=== PATIENT | female | born 1960 | race Caucasian/White ===

== ENCOUNTER 2024-05-28 09:35 | Outpatient (CLI) | payer MEDICARE, OTHER, SELFPAY ==
--- NOTE | 2024-05-28 09:46 | MR_ITS ---
FINAL REPORT TECHNIQUE: Multiplanar MR without contrast CLINICAL HISTORY: ADOLESCENT IDIOPATHIC SCOLIOSIS COMPARISON: None FINDINGS: There is severe dextroscoliosis of the lumbar spine. There is a mild compression fracture of T12 having a chronic appearance. Lateral subluxation is noted of T12 on L1, L2 on L3, and L3 on L4. L1-2: Minimal annular disc bulge without canal stenosis. L2-3: Moderate annular disc bulge. Mild central canal stenosis. Moderate bilateral facet arthropathy. Moderate bilateral neural foraminal narrowing. L3-4: Moderate annular disc bulge. Moderate to severe central canal stenosis and neural foraminal narrowing. L4-5: Minimal annular disc bulge. Mild facet arthropathy. No central canal stenosis. L5-S1: Minimal annular disc bulge. Moderate right facet arthropathy. Mild right neural foraminal narrowing. No central canal stenosis. IMPRESSION: Advanced scoliosis with multilevel lateral subluxation. Degenerative canal stenosis most pronounced at L2-3 and L3-4. Chronic T12 compression fracture. Reviewed, Interpreted and Dictated by Sonu Aparicio MD Transcribed by Zuly Villatoro Authenticated and [facility]
== END 2024-05-28 23:59 | disposition home or self-care (01) ==
LOC: RAD 09:40
PROVIDERS: Visit Provider Physician Assistant Medical
DX: M47.27 Other spondylosis with radiculopathy, lumbosacral region (principal); M41.129 Adolescent idiopathic scoliosis, site unspecified
CPT/HCPCS: 72148

== ENCOUNTER 2024-06-26 09:48 | Outpatient (POV) | payer MEDICARE, SELFPAY ==
--- NOTE | 2024-06-26 10:34 | EXP.PAIN.OV ---
HPI Data of Consult Patient: new to practice Consult date: 06/26/24 Requesting Physician: Rosie Pond APRN Primary Care Provider: Referral Provider, MD Consult Narrative Reason for consult: Low back pain, bilateral leg pain History of present illness: Ms. Ludwig is a 64 year old female who presents today as a new patient. She is a referral from Edith Rai. Today she rates her pain a 6 out of 10. Patient states her pain is all in her low back that does radiate down into her bilateral lower extremities. She states that it is sharp and is worse with certain movements or walking. She states that there is just a lot of pressure and pain. She states the pain is affecting her ability perform activities of daily living such as cooking and cleaning. Patient did just complete recent physical therapy in April and noticed no additional improvement. Patient has tried Tylenol, diclofenac, heat and ice and topicals such as Voltaren with minimal improvement. Patient denies any prior back surgery or injection history. Patient does state that she knows she does have scoliosis that is probably also affecting her overall pain. Patient does state that she did have a right hip replacement in November 2023. She states that it was after this procedure that the pain really increased and started to become very aggravating. Patient does not have any current scheduled medications on file. Her Scotty has been reviewed and is appropriate. CC: Rosie Pond APRN [facility] Disclaimer: The information contained in this section may have been updated after the patient was seen, as this information can be updated by other users. Social History Smoking Status: Unknown if ever smoked alcohol intake: never current occupational status: other Travel in the last 8 weeks: None Review of Systems Review of Systems Review of systems:: pertinent systems reviewed and negative unless documented below Review of systems (narrative): Review of Systems: General: No recent weight changes, no fever, no sleep disturbances Respiratory: No cough, no shortness of air, no recurring pulmonary infections Cardiovascular/peripheral vascular: No chest pain, no palpitations, no edema, no shortness of breath Gastrointestinal: No new onset incontinence, normal bowel movements reported Genitourinary: No new onset incontinence Musculoskeletal: Low back pain, bilateral leg pain Psychiatric: [Normal mood/affect] Neurological: [Denies weakness in extremities], [denies balance issues] Meds Home Medications and Allergies New Prescriptions to Start Prescriptions: Objective Narrative: Physical Exam: General: Alert and oriented x3, no acute distress, pleasant and cooperative Lungs: Respirations even and unlabored, symmetrical chest expansion Eyes: PERRL Musculoskeletal: Flexion and extension of lumbar [spine] somewhat guarded secondary to pain, positive leg raise Neurological: Speech clear, no gross sensory deficit Additional findings Additional findings: FINDINGS: There is severe dextroscoliosis of the lumbar spine. There is a mild compression fracture of T12 having a chronic appearance. Lateral subluxation is noted of T12 on L1, L2 on L3, and L3 on L4. L1-2: Minimal annular disc bulge without canal stenosis. L2-3: Moderate annular disc bulge. Mild central canal stenosis. Moderate bilateral facet arthropathy. Moderate bilateral neural foraminal narrowing. L3-4: Moderate annular disc bulge. Moderate to severe central canal stenosis and neural foraminal narrowing. L4-5: Minimal annular disc bulge. Mild facet arthropathy. No central canal stenosis. L5-S1: Minimal annular disc bulge. Moderate right facet arthropathy. Mild right neural foraminal narrowing. No central canal stenosis. IMPRESSION: Advanced scoliosis with multilevel lateral subluxation. Degenerative canal stenosis most pronounced at L2-3 and L3-4. Chronic T12 compression fracture. Reviewed, Interpreted and Dictated by Sonu Aparicio MD Transcribed by Zuly Villatoro Authenticated and [facility] Assessment and Plan *Assessment and plan (1) Degenerative disc disease: Status: Acute Category: Medical (2) Lumbar radiculopathy: Status: Acute Category: Medical Code(s): M54.16 - Radiculopathy, lumbar region (3) Lumbar spinal stenosis: Status: Acute Category: Medical Code(s): M48.061 - Spinal stenosis, lumbar region without neurogenic claudication Plan Patient is experiencing worsening pain in her low back with numbness and tingling into her lower extremities. Patient did have limited range of motion of her lumbar spine with a positive leg raise. I did discuss with patient that I do believe they would benefit from a lumbar epidural steroid injection. Risk and benefits were discussed with patient and the patient would like to proceed forward with this plan of care. Patient is not on any blood thinners. Patient has tried and failed conservative therapy including continued at home stretching exercise for longer than 12 weeks that was physician guided. Patient had recent physical therapy in April that did not improve any of her symptoms. This pain has been going on for longer than 6 months.We will schedule the patient for an LESI L3-L4 under fluoroscopy. Patient has been instructed to contact the clinic with any concerns before the next appointment. Dr. Delgado has reviewed this note and agrees with this plan of care. This note was dictated using voice recognition software and make contain errors or omissions. All injections are used with Lidocaine, Bupivacaine and Depo Medrol. Occasionally urine drug screen is needed to verify patient's compliance with our office pain contract. This is ordered based off specific treatments related to chronic pain with the potential to abuse certain medications.
[2024-06-26 10:35] VITALS: BP 115/64; PULSE 75; RESP 18; O2SAT 93; BMI 27.0
== END 2024-06-26 23:59 | disposition home or self-care (01) ==
LOC: SC.PAIN 09:52
PROVIDERS: Visit Provider Nurse Practitioner Family
DX: M48.061 Spinal stenosis, lumbar region without neurogenic claudication (principal); M51.16 Intervertebral disc disorders with radiculopathy, lumbar region; Z73.89 Other problems related to life management difficulty; Z96.641 Presence of right artificial hip joint
CPT/HCPCS: 99202; G0463

== ENCOUNTER 2024-08-05 08:56 | Day surgery (SDC) | payer MEDICARE, MEDICAID, SELFPAY ==
[2024-08-05 09:13] VITALS: BP 125/70; PULSE 64; RESP 16; TEMP 36.8; O2SAT 97; BMI 29.2
[2024-08-05] MEDS: DEXAMETHASONE 10MG/ML 1ML VIAL 10 MG (09:48)
[2024-08-05 09:49] VITALS: BP 128/87; PULSE 74; RESP 18; O2SAT 98
[2024-08-05 09:50] VITALS: BP 128/87; PULSE 83; RESP 18; O2SAT 98
--- NOTE | 2024-08-05 09:52 | P.PCN_ITS ---
Procedure Date: 08/05/24 Time: 09:20 Anesthesiologist:: Karan Rodrigues CRNA Complications:: None Pre-procedure Diagnosis:: Degenerative disc lumbar spine multilevels. Lumbar radiculopathy. Lumbar spondylosis. Multilevel lumbar facet arthropathy. Post-procedure Diagnosis:: Same. Indications for Procedure:: Patient is a very pleasant 64-year-old female who comes our clinic today for lumbar epidural steroid injection at the L3-4 level. Patient describes low lumbar back pain as constant, dull, aching. Patient also reports bilateral hip and leg radicular symptoms. Patient rates her pain 7/10. Procedure Details:: Procedure: Lumbar epidural steroid injection under fluoroscopy Informed consent was obtained and the risks and benefits of the procedure were explained to the patient. The patient was taken to the procedure room and nonin vasive monitors placed, including noninvasive blood pressure cuff and pulse oximeter. The back was viewed using C-arm Fluoroscopy and prepped using Chloraprep as a cleansing solution and the L4-L5 interspace was palpated. Skin and subcutaneous tissues were anesthetized using lidocaine 1.5% and a 25-gauge needle. After this, an 18-gauge Touhy epidural needle was placed into the L4-L5 interspace and advanced using fluoroscopic guidance and loss of resistance to air until the epidural space was encountered. After confirmation of needle placement in the epidural space, with dye, a solution containing normal saline, 3 mL and Depo-Medrol 80 mg were incrementally injected into the lumbar epidural space. The patient tolerated the procedure well with no complications. After looking at the lumbar spine under fluoroscopy. The L3-4 level was not accessible. Plan and Disposition:: Patient was discharged without incident.
[2024-08-05 09:55] VITALS: BP 139/81; PULSE 71; RESP 16; O2SAT 99
== END 2024-08-05 09:55 | disposition home or self-care (01) ==
PROVIDERS: Visit Provider Nurse Anesthetist, Certified Registered
DX: M51.16 Intervertebral disc disorders with radiculopathy, lumbar region (principal); M47.26 Other spondylosis with radiculopathy, lumbar region
CPT/HCPCS: 62323; J1100

== ENCOUNTER 2024-08-26 13:07 | Outpatient (POV) | payer MEDICARE, MEDICAID, SELFPAY ==
[2024-08-26 13:45] VITALS: BP 111/69; PULSE 76; RESP 14; O2SAT 95; BMI 28.3
--- NOTE | 2024-08-26 14:34 | EXP.PAIN.SOA ---
[facility] Disclaimer: The information contained in this section may have been updated after the patient was seen, as this information can be updated by other users. Medical History HLD (hyperlipidemia) Dwarfism Scoliosis Surgical History History of right hip replacement Family History Other Unknown family medical history Social History Smoking Status: Unknown if ever smoked alcohol intake: never current occupational status: other Travel in the last 8 weeks?: None PM Subjective & Objective Subjective Subjective:: Patient is a pleasant 64-year-old female who presents today for follow-up of her lumbar epidural steroid injection L4-L5 on 08/05/2024. Today she rates her pain a 5 out of 10. She denies any new falls or injuries. Patient does state that she really feels like she did not notice any additional improvement with these injections. Patient states she is still having the same pain that radiates from her low back down into her bilateral legs with a lot of tight heavy sensations into her calves and ankles. Patient states the pain does interfere with her ability to perform activities of daily living such as cooking and cleaning. Patient is interested in any options we may be able to provide. Her Scotty has been reviewed and is appropriate. Review of Systems: General: No recent weight changes, no fever, no sleep disturbances Respiratory: No cough, no shortness of air, no recurring pulmonary infections Cardiovascular/peripheral vascular: No chest pain, no palpitations, no edema, no shortness of breath Gastrointestinal: No new onset incontinence, normal bowel movements reported Genitourinary: No new onset incontinence Musculoskeletal: Low back pain, bilateral leg pain Psychiatric: [Normal mood/affect] Neurological: [Denies weakness in extremities], [denies balance issues] Pain at rest (0-10 scale): 5 Objective Objective:: Physical Exam: General: Alert and oriented x3, no acute distress, pleasant and cooperative Lungs: Respirations even and unlabored, symmetrical chest expansion Eyes: PERRL Musculoskeletal: Flexion and extension of lumbar [spine] somewhat guarded secondary to pain, [antalgic gait noted] Neurological: Speech clear, no gross sensory deficit Has patient had previous pain injection?: Yes Percent improvement in pain since last injection: Minimal Conservative treatment options previously tried: Home exercise plan Length of treatment: Longer than 12 weeks Meds Home Medications and Allergies Home Medications ?Medication ?Instructions ?Recorded ?Confirmed ?Type atorvastatin 80 mg tablet 80 mg PO DAILY Cholesterol 06/26/24 08/26/24 History bupropion HCl 150 mg 24 hr tablet, 150 mg PO DAILY MOOD 06/26/24 08/26/24 History extended release diclofenac sodium 75 mg 75 mg PO DIRECTED Pain 06/26/24 08/26/24 History tablet,delayed release ropinirole 0.25 mg tablet 0.25 mg PO DAILY RESTLESS LEGS 06/26/24 08/26/24 History New Prescriptions to Start Prescriptions: Allergies Allergy/AdvReac Type Severity Reaction Status Date / Time gabapentin AdvReac Nausea Verified 06/26/24 11:47 hydrocodone AdvReac Headache Verified 06/26/24 11:47 Assessment and Plan *Assessment and plan (1) Lumbar radiculopathy: Status: Acute Category: Medical Code(s): M54.16 - Radiculopathy, lumbar region (2) Degenerative disc disease: Status: Acute Category: Medical Plan I did discuss with the patient that due to her continued pain throughout her legs with a lot of tight pressure sensations that it may be beneficial for her to have an EMG done to rule out possible nerve impingement. Patient has had updated lumbar imaging. I did also discuss with the patient that I do believe it may be beneficial to try pregabalin 25 mg at bedtime. Patient would like to proceed forward with this option. I will send in a 2-week dose of this medication and have the patient follow-up in 2 weeks with our office we will also in the meantime send a referral to Dr. Reid for the EMG test for her bilateral lower extremities. Patient has been instructed to contact the clinic with any concerns before the next appointment. Dr. Delgado has reviewed this note and agrees with this plan of care. This note was dictated using voice recognition software and make contain errors or omissions. All injections are used with Lidocaine, Bupivacaine and dexamethasone. Occasionally urine drug screen is needed to verify patient's compliance with our office pain contract. This is ordered based off specific treatments related to chronic pain with the potential to abuse certain medications.
== END 2024-08-26 23:59 | disposition home or self-care (01) ==
PROVIDERS: PCP Nurse Practitioner Family; Visit Provider Nurse Practitioner Family
DX: M54.16 Radiculopathy, lumbar region (principal)
CPT/HCPCS: 99212; G0463

== ENCOUNTER 2024-09-10 10:01 | Outpatient (POV) | payer MEDICARE, MEDICAID, SELFPAY ==
--- OUTSIDE RECORDS SUMMARY | 2024-09-10 10:09 | XMS_ITS | Data Portability ---
Author Organization [facility] ADMIN Address [address] [place] [address] Care Team Providers Care Nursing Instructor Name Role Phone JOSSELINE CONTRERAS Primary Care Provider Assessment No assessment recorded. Plan of Treatment Reminders Order Date Submit Date Provider Last Modified By Organization Details Last Modified Time Details Appointments None recorded. Lab None recorded. Referral None recorded. Procedures None recorded. Surgeries None recorded. Imaging CT, wrist, w/o contrast 2022 023 [email or web address] Minerva (Centralized Scheduling)[address] , [place], [address], 4 15:37:52 XR, wrist 2022 023 [email or web address] [facility], [address] [place] [address] , [place], [address], 3 07:57:33 XR, finger(s) 2021 022 [email or web address] [facility], [address] [place] [address] , [place], [address], 2 09:10:01 Medication Orders Medrol (Ed) 4 mg tablets in a dose pack [address] [facility] [address] [facility], [address] [place], [address], 3 13:14:37 tramadol 50 mg tablet [address] [facility], [address] [place], [address], 3 13:15:21 Medrol (Ed) 4 mg tablets in a dose pack [address] [facility], [address] [place], [address], 3 13:14:37 Patient TargetsNo targets recorded. Patient InstructionsNo instructions recorded. Reason for Referral None Reported. Results Created Date Observation Date Name Description Value Unit Range Abnormal Flag Note LastModifiedBy Organization Detail LastModifiedTime 03/09/20 22 XR, finge r(s) No observ ation record ed. [email or web address] Medina [address] [place], [address], 03/09/2022 08:32:04 11/29/19 23 XR, wrist No observ ation record ed. RONAK Medina [address] [place], [address], 11/28/2022 08:59:46 02/03/20 23 02/02/2023 - CT upper ext w/o cont RT [facility] Name: BJ HINTON [facility] Phys: [place] [address] : 1959 Age: 62 Sex: F Acct: [id number] Loc: G.CT PHONE #: [phone] Exam Date: 2022 Status : REG CLI FAX #: Rad# [id number] Unit# [id number] Admit Date: 2022 EXAMS: CPT CODE: [id number] [place] UPPER EXT W/[place] [address] CLINIC AL INFORM ATION: Scapho id fractu re. Wrist pain COMPAR OLGA: No compar olga availa ble. TECHNI QUE: Multis lice axial unenha nced imagin g of the right wrist was perfor med as well as 2-D recons tructi ons in the addison l and sagitt al planes . Dose reduct ion achiev ed by adjust ing mA and/or kV based on patien t size. FINDIN GS: There is advanc ed degene ration of the radial carpal articu lation with inferi or rotary sublux ation of the proxim al scapho id. The rotato ry sublux ation result s in disrup tion/s ubluxa tion of the scapho id trapez ium and scapho id trapez oid articu lation s. No eviden ce of scapho id fractu re There is disrup tion of the scapho lunate ligame nt as eviden ce by the dissoc iation of the scapho lunate articu lation . There is anteri or disloc ation of the lunate and to a lesser degree the trique trum. There is pseudo articu lation of the capita te with the partia l extent of the distal radius . Subcho ndral cystic degene ration of the radius and capita te is noted. The carpal metaca rpal articu lation s are fairly well. IMPRES YANELIS: 1. Severe degene ration radial carpal articu lation s with near comple te anteri or disloc ation of the lunate and anteri or sublux ation of the scapho id produc ing pseudo articu lation of the radius with the capita te, and disrup tion of the scapho id trapez ium/tr apezoi d articu lation s respec tively . Commun icatio n: Per this lexie n report . This report is genera dana using voice recogn ition comput er softwa re. Inadve rtent errors may have occurr ed while dictat ing report . Common sense approa ch is apprec iated and do not hesita te to call for clarif icatio n when necess carmen. PAGE 1 Signed Report (JODY NUED) [facility] Name: BJ HINTON [facility] Phys: Charlie [place] [address] : 1959 Age: 62 Sex: F Acct: [id number] Loc: SulemanCT PHONE #: Exam Date: 2022 Status : REG CLI FAX #: Rad# [id number] Unit# [id number] Admit Date: 2022 EXAMS: CPT CODE: [id number]T W/[place] [address] Electr onical ly Signed by Wes Parker on 2022 at 1420 Report ed and signed by: CARRIE Parker M.D. CC: Josseline Contreras ; Angel Guerra DO Dictat ed Date/T kriss: 2022 (142) Techno logist : ROMEO YOUSSEF Transc ribed Date/T kriss: 2022 (1420) Transc riptio nist: DR.HAR JONES Ledbetter onic Signat ure Date/T kriss: 2022 (142) Printe d Date/T kriss: 2022 (142) BATCH NO: N/A PAGE 2 Signed Report CC'ed Logic: Orderi ng Provid er: CHARLIE SAM Attend ing Provid er: CHARLIE SAM Referr ing Provid er: CHARLIE SAM Consul ting Provid er: DANITA MANJARREZ [email or web address] [address] [place], [address], 02/05/2023 07:40:50 Result Notes None recorded. Problems Name Problem SNOMED Code Status Onset Date Resolution Date Notes Provider Name and Address Organization Details Recorded Time Sensorineur al hearing loss 13404360 Active 2021 Comfort Melissa null, [place] - [facility] - [place] & [place] 2 15:01:54 Restless legs 68335562 Active 2021 Comfort Melissa [place] [facility] [place] [facility] [place] 2 15:01:54 Seasonal allergy 554621466 Active Comfort Melissa null[place] [facility] [place] [facility] [place] 2 15:01:54 Scoliosis of lumbar spine 270528222 Active Comfort Melissa [place] [facility] [place] 2 15:01:54 Osteoarthri tis 398472855 Active 2020 Comfort Melissa [place] [facility] [place] [facility] [place] 2 15:01:54 Lumbar radiculopat hy 862382028 Active 2021 Comfort Melissa [place] [facility] [place] 2 15:01:54 M ni re's disease 66831926 Active 2017 Comfort Melissa [place] [facility] [place] 2 15:01:54 Bilateral osteoarthri tis of knees 2707891454803 07 Active 2021 Comfort Melissa [place] [facility] [place] 2 15:01:54 Pain of right hip joint 7607122697994 02 Active 2020 Comfort Melissa [place] [facility] [place] 2 15:01:54 Major depressive disorder 942521836 Active 2021 Comfort Melissa [place] [facility] [place] 2 15:01:54 Nausea 942621469 Active 2021 Comfort Melissa [place] [facility] [place] 2 15:01:54 Hypercholes terolemia 57695419 Active Comfort Melissa [place] [facility] [place] 2 15:01:54 Pain in left lower limb 728244253 Active 2021 Comfort Melissa [place] [facility] [place] 2 15:01:54 Pain in both feet 4538264317441 9102 Active 2020 Comfort Melissa [place] [facility] [place] 2 15:01:54 Scoliosis deformity of spine 578513279 Active 2020 Comfort Melissa [place] [facility] [place] 2 15:01:54 Mixed hyperlipide shirlene 052305259 Active 2016 Comfort song, SAGRARIO Jaime [place] [facility] [place] 2 15:01:54 Pain in right lower limb 655286383 Active 2021 Comfort song, SAGRARIO COELHO [facility] [place] 2 15:01:54 Osteoarthri tis of knee 084969151 Active 2021 Comfort song, SAGRARIO COELHO [facility] [place] 2 15:01:54 Pain of right knee joint 4956542346369 00 Active 2021 Comfort song, SAGRARIO Jaime [place] [facility] [place] 2 15:01:54 Problem Notes None recorded. Procedures Surgical History Date Name Laterality Status Provider Name and Address Organization Details Recorded Time bone graft of patella completed Unique Gee SAGRARIO COELHO [facility] [place] 01/26/2022 08:38:43 operation on hip joint completed Unique Gee SAGRARIO COELHO [facility] [place] 01/26/2022 08:39:15 Imaging Results None recorded. Procedure Notes None recorded. Medical Equipment None Reported. Allergies No known drug allergies Medications Name Sig Start Date Stop Date Status Note LastModified by Organization Details LastModified Time amoxicillin 500 mg capsule TAKE FOUR CAPSULES BY MOUTH ONE HOUR BEFORE DENTAL APPOINTME NT 02/05 completed Not Available Not Available Not Available atorvastati n 80 mg tablet TAKE 1 TABLET BY MOUTH ONCE DAILY AT BEDTIME active Not Available Not Available No t Available Carafate 1 gram tablet take 1 tablet (1 gram) by oral route 2 times per day on an empty stomach for 30 days 04/27 completed Not Available Not Available Not Available cetirizine 10 mg tablet take 1 tablet (10 mg) by oral route once daily for 14 days 05/17 completed Not Available Not Available Not Available pravastatin 40 mg tablet take 1 tablet (40 mg) by oral route once daily at bedtime 05/20 completed Not Available Not Available Not Available ibuprofen 800 mg tablet active Not Available Not Available Not Available hydrocodone 5 mg-acetamin ophen 325 mg tablet 12/20 completed Not Available Not Available Not Available famotidine 40 mg tablet TAKE 1 TABLET BY MOUTH ONCE DAILY FOR 90 DAYS active Not Available Not Available No t Available penicillin V potassium 500 mg tablet TAKE 1 TABLET BY MOUTH EVERY 8 HOURS UNTIL ALL TAKEN 12/20 completed Not Available Not Available Not Available tramadol 50 mg tablet Take 1 tablet every 6 hours by oral route as needed. 02/05 completed Not Available Not Available Not Available triamterene 37.5 mg-hydrochl orothiazide 25 mg capsule 10/15 completed Not Available Not Available Not Available prednisone 10 mg tablets in a dose pack take as directed 06/06 completed Not Available Not Available Not Available Mobic 15 mg tablet take 1 tablet (15 mg) by oral route once daily with food 11/22 completed Not Available Not Available Not Available famotidine 20 mg tablet take 1 tablet (20 mg) by oral route 2 times per day for 15 days 10/28 completed Not Available Not Available Not Available promethazin e 25 mg tablet take 1 tablet (25 mg) by oral route every 6 hours as needed for 7 days 05/17 completed Not Available Not Available Not Available hydrochloro thiazide 12.5 mg capsule 10/15 completed Not Available Not Available Not Available diclofenac sodium 75 mg tablet,isaac yed release TAKE 1 TABLET BY MOUTH TWICE DAILY WITH MEALS NEEDED active Not Available Not Available No t Available montelukast 10 mg tablet take 1 tablet (10 mg) by oral route once daily in the evening for 30 days 10/15 completed Not Available Not Available Not Available Aspir-81 mg tablet,isaac yed release take 1 tablet (81 mg) by oral route once daily 2013 active Not Available Not Available Not Avai lable ibuprofen 600 mg tablet 12/20 completed Not Available Not Available Not Available methylpredn isolone 4 mg tablets in a dose pack Take 1 dose pk by oral route. 02/05 completed Not Available Not Available Not Available ketorolac 60 mg/2 mL intramuscul ar solution Inject 60 mg by intramusc ular route. 04/29 completed Not Available Not Available Not Available fluticasone propionate 50 mcg/actuati on nasal spray,suspe nsion inhale 1 puff by nasal route 2 times a day 10/15 completed Not Available Not Available Not Available Pepto-Bismo l 262 mg/15 mL oral suspension Take 15 mL every 4 hours by oral route as needed. 02/05 completed Not Available Not Available Not Available Premarin 0.625 mg/gram vaginal cream INSERT 0.5 GRAMS VAGINALLY TWICE A WEEK AT BEDTIME active Not Available Not Available No t Available Crestor 20 mg tablet take 1 tablet (20 mg) by oral route once daily at bedtime for 30 days 10/11 completed Not Available Not Available Not Available bupropion HCl XL 300 mg 24 hr tablet, extended release TAKE 1 TABLET BY MOUTH ONCE DAILY active Not Available Not Available No t Available bupropion HCl XL 150 mg 24 hr tablet, extended release TAKE 1 TABLET BY MOUTH ONCE DAILY active Not Available Not Available No t Available chlorhexidi ne gluconate 0.12 % mouthwash 12/20 completed Not Available Not Available Not Available Centrum Silver Ultra Women's tablet take 1 tablet by oral route daily 10/28 completed Not Available Not Available Not Available melatonin 10 mg tablet Take 1 tablet every day by oral route at bedtime. 10/15 completed Not Available Not Available Not Available Nasacort 55 mcg nasal spray aerosol apply 2 sprays by nasal route daily 02/16 completed Not Available Not Available Not Available Sutab 1.479-0.188 -0.225 gram tablet TAKE DIRECTED active Not Available Not Available No t Available Vitals Date Recorded Body height Provider Name an d Address Organization Details Last Updated DateTime 01/24/2023 129.54 cm Ro Herbert [place] - [place] [facility] [place] 01/24/2023 10:21:40 Date Recorded Body height Body mass index (BMI) Body weight Heart rate Systolic blood pressure Diastolic blood pressure Provider Name and Address Organization Details Last Updated DateTime 2 129.54 cm 25.7 kg/m2 24713.2 8 g 74 /min 119 mm[Hg] 74 mm[Hg] Unique Gerard [place] - [facility] [place] 2 08:34:35 Date Recorded Body height Provider Name an d Address Organization Details Last Updated DateTime 02/05/2023 129.54 cm Comfort COELHO [facility] 02/05/2023 13:13:52 Social History Question Answer Notes LastModified by Organizat ion Details LastModified Time Tobacco Smoking Status Never Smoker SAGRARIO Pickett [facility] 01/26/2022 08:37:24 Do You Have An Advance Directive? No Information not available 11/28/2022 Are You Blind Or Do You Have Difficulty Seeing? No Information not available 11/28/2022 Sex: Unknown Functional Status None recorded. Mental Status None recorded. Family History Relationship Description Onset Age of this Age Resolved Age Notes LastModified by Organization Details LastModified Time Mother Coronary arterioscler osis [email or web address] Not available 2021 08:36:59 Father Family history of malignant neoplasm [email or web address] Not available 2021 08:37:09 Medical History Condition Response Arthritis Y High Cholesterol Y Osteoporosis Y Gynecological HistoryNo gynecological history recorded. Obstetrics History GPAL:G 0 P 0 0 0 0 Immunizations Vaccine Type Date Status Note Provider Nam e and Address Organization Details Recorded Time Influenza, split virus, quadrivalent, preservative 8 completed SAGRARIO Mtz [facility] [place] 01/25/2022 15:02:05 COVID-19, mRNA, LNP-S, PF, 100 mcg/0.5mL dose or 50 mcg/0.25mL dose 1 completed Unique Gee S[place]RARIO song [facility] [place] 01/26/2022 08:34:46 COVID-19, mRNA, LNP-S, PF, 30 mcg/0.3 mL dose, diane-sucrose 2 completed Unique Gee SAGRARIO song [facility] [place] 01/26/2022 08:34:46 COVID-19, mRNA, LNP-S, bivalent, PF, 50 mcg/0.5 mL or 25mcg/0.25 mL dose 2 completed Unique Gee duncan S[place]IO Jaime [facility] [place] 01/26/2022 08:34:46 COVID-19, mRNA, LNP-S, PF, 100 mcg/0.5mL dose or 50 mcg/0.25mL dose 1 completed Unique song, [place] - [facility] [place] 01/26/2022 08:34:46 COVID-19, mRNA, LNP-S, PF, 100 mcg/0.5mL dose or 50 mcg/0.25mL dose 1 completed Unique Gerard duncan, [place] - [facility] [place] 01/26/2022 08:34:46 Influenza, split virus, quadrivalent, preservative 2 completed Comfort song, [place] - [facility] [place] 02/05/2023 13:10:56 Past Encounters Encounter ID Performer Location Encounter Start Date Encounter Closed Date Diagnosis/Indication Diagnosis SNOMED-CT Code Diagnosis ICD10 Code Diagnosis Note [id number] ARNOLDO [facility]ZARIEGOS [facility] [address] [place] [address] 12/16/2021 11:22:53 12/16/2021 11:26:19 Sensorineural hearing loss 76865883 H90.41 [id number] Arcenio Scales MD [address] [address] 01/26/2022 08:19:55 01/26/2022 09:09:16 Osteoarthritis of right knee joint 7840891804 01687 M17.11 Scoliosis deformity of spine 423442601 M41.9 Mallet fin talya of right hand 1480284625 50525 M20.011 [id number] Arcenio Scales MD Elsie [facility] [address] [place] [address] 03/09/2022 08:19:52 03/09/2022 08:54:15 Osteoarthritis of right knee joint 5616411518 84812 M17.11 send pain medication . Scoliosis deformity of spine 371948968 M41.9 Mallet fin talya of right hand 8497157920 87498 M20.011 [id number] ANGEL [facility]ERRA [facility] [address] [address] [place] [address] 11/28/2022 08:10:54 11/28/2022 09:12:44 Pain of right wrist 6059699061 23489 M25.531 Closed fra cture of scaphoid bone of wrist 19786050 S62.001K Arthritis of wrist 91162 05755 109 M13.839 [id number] ANGEL GUERRA DO [address] [address] 01/24/2023 09:47:34 01/24/2023 10:42:58 Pain of right wrist 9845429050 87785 M25.531 Arthritis of wrist 53798 55228 109 M13.839 Closed fra cture of scaphoid bone of wrist 82219047 S62.001K [id number] DO JENNIFER KIM [address] [address] 02/05/2023 13:08:23 02/05/2023 13:39:38 Arthritis of wrist 4066746648 109 M13.839 Health Concerns Section Related Observation LastModified by Organization Detai ls LastModified Time None Recorded Concern Status LastModified by Organization Details LastModified Time None Recorded Advance Directives Directive N: Payers Insurance Date Sequence Insurance Name Policy Number Policy Maldonado Covered Member ID Maldonado Member ID Guarantor Name 10/27/2021 2 [place] [employer] - FFS/TRADITIO NAL Bj G Oziel [id number] Bj G Oziel 06/19/2024 1 [facility] (MEDICAID O) Bj G Oziel [id number] Bj G Oziel Notes Date Note Type Note Provider Name and Address Organization Details Recorded Time 01/26/2022 text/html 61 year old fema le here today radiating left leg pain and right knee pain. She states that pain radiates usually while sitting, feels like pressure. Right knee bothers her while driving, feels like bones are grinding. She was told at 16 or 17 that she had scoliosis. She takes tylenol extra strength and diclofenac. Arcenio Scales MD [address] [place] [address],[address], [place], [address], [place] - [facility] [place] 01/27/2022 12:43:07 03/09/2022 text/html 62 y/o female he re today for recheck x-rays right mallet finger in splint and follow up on right knee/back pain post medrol dosepac. Pt states the finger is doing better. Splint intact. Pt states she is having a lot of right hip and knee pain. Medrol dosepack helped while she was on it but pain came back after. Pt saw Dr. Scales in September of this year and they discussed her seeing Dr. Gage when she was ready to discuss hip replacement. [email or web address] CARLTON ESQUIVEL, FLORINDA [address] [place] [address],[address], [place], [address], [facility] - [facility] [place] 03/09/2022 08:53:13 11/28/2022 text/html 62 y/o female he re today for right wrist pain and swelling. NKI. Pain is with activity and after using it. Pain is about entire circumference of wrist. Pt wears a brace at times and that helps some but makes it to where she can't use hand much. Taking Tylenol for pain. [id number] ANGEL GUERRA DO [address] [place] [address],[address], [place], [address], [facility] - [facility] [place] 11/28/2022 09:14:39 01/24/2023 text/html Patient here for follow up right wrist pain. States Gail helped for about a week. Pain has returned.[id number] ANGEL GUERRA, [address] [place] [address],[address], [place], [address], [place] - [facility] [place] 01/26/2023 08:42:45 02/05/2023 text/html Pt is here for r t upper ext CT. She reports she continues to have pain in the wrist and hand. There is a visible lump on the dorsal part of hand/wrist. She reports she is taking diclofenac for pain-[id number] ANGEL GUERRA, [address] [place] [address],[address], [place], [address], [place] [facility] - [place] [facility] [place] 02/05/2023 18:14:00 OBGyn Episode No OBEpisode recorded.
--- OUTSIDE RECORDS SUMMARY | 2024-09-10 10:09 | XMS_ITS | Clinical Summary ---
Author Organization [facility] Address [address] 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 Active bismuth subsalicylate (Pepto Bismol) 262 MG/15ML suspension Take 15 mL by mouth every 4 (four) hours as needed. Active buPROPion XL (Wellbutrin XL) 150 MG 24 hr tablet Take 1 tablet (150 mg) by mouth every morning. Active ondansetron (Zofran) 4 MG tablet Take 1 tablet (4 mg) by mouth every 8 (eight) hours if needed for nausea or vomiting. 11/14/19 23 Active rOPINIRole (Requip) 0.25 MG tablet Take 1 tablet (0.25 mg) by mouth nightly. 09/07/19 24 Active estrogens, conjugated, (Premarin) vaginal cream Insert 1 g into the vagina daily. Active oxyCODONE (Roxicodone) 5 MG immediate release tablet Take 1 tablet (5 mg) by mouth every 6 (six) hours if needed for severe pain for up to 20 doses. 20 tablet 12/18/19 24 Active Additional Information Patient not taking.Reported on 05/13/2024 acetaminophen (Tylenol Extra Strength) 500 MG tablet Take 2 tablets (1,000 mg) by mouth every 8 (eight) hours. 100 tablet 12/20/19 Active methylPREDNISolon e (Medrol Dospak) 4 MG tablets Follow schedule on package instructions 21 tablet 01/30/20 Active Additional Information Patient not taking.Reported on 05/13/2024 gabapentin (Neurontin) 100 MG capsuleIndication s:Postoperative Pain Take one tablet in the morning and 1-2 at night as needed for pain 30 capsule 02/13/20 Active Additional Information Patient not taking.Reported on 05/13/2024 diclofenac (Voltaren) 75 MG EC tablet TAKE 1 TABLET BY MOUTH TWICE DAILY WITH MEALS NEEDED Active Active Problems Problem Noted Date Diagnosed Date Lumbar stenosis with neurogenic claudication 02/2025 Radiculitis, lumbosacral 03/04/2024 Adolescent idiopathic scoliosis 03/04/2024 Primary osteoarthritis of right hip 12/18/2023 Wrist arthritis 04/19/2023 Seasonal allergies 03/29/2022 Dwarfism 03/23/2022 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 03/23/2022 Pain of right lower extremity 12/21/2021 Arthralgia of right knee 12/20/2021 Restless legs 08/03/2021 Major depressive disorder 05/11/2021 Nausea 05/11/2021 Osteoarthritis of both knees 05/11/2021 Pain in both feet 12/07/2020 Osteoarthritis 11/10/2020 Scoliosis of lumbar spine 11/10/2020 M ni re's disease 09/14/2017 Mixed hyperlipidemia 07/27/2016 Encounters Date Type Department Care Team Description 06/25/2024 Telephone Medical Office Building [facility] [address], [address] [place] [address] Kanu Ignacio 06/24/2024 Telephone Medical Office Building [facility] [address], [address] [place] [address] Kanu Ignacio 06/20/2024 Telephone Medical Office Building [facility] [address], [address] [place] [address] Edith Rai PA 06/20/2024 Telephone Medical Office Building [facility] [address], [address] [place] [address] Edith Rai PA 06/16/2024 Telephone Medical Office Building [facility] [address], [address] [place] [address] Edith Rai PA [facility] Clinical Concern/Question 06/16/2024 Telephone Medical Office Building [facility] [address], [address] [place] [address] Edith Rai PA 06/12/2024 Telephone Medical Office Building [facility] [address], [address] [place] [address] Edith Rai PA HCN - Patient Message from Last 3 Months Family History Medical History Relation Name Comments Cancer Father Heart Problem Mother Cancer Paternal Grandmother Anesthesia problems Neg Hx Malig Hyperthermia Neg Hx Relation Name Status Comments Father Mother Paternal Grandmother Social History Tobacco Use Types Packs/Day Years Used Date Smoking Tobacco: Never Smokeless Tobacco: Never Tobacco Cessation:Counseling Given: Not Answered Alcohol Use Standard Drinks/Week Comments Never 0 (1 standard drink = 0.6 oz pur e alcohol) PHQ-2 Answer Date Recorded Patient Health Questionnaire-2 Score 0 03/13/2023 PHQ-2A Answer Date Recorded Patient Health Questionnaire-2 Score 0 03/29/2022 Comments No Sex and Gender Information Value Date Recorded Sex Assigned at Not on file Legal Sex Female 8:14 PM EDT Gender Identity Not on file Sexual Orientation Not on file Last Filed Vital Signs Vital Sign Reading Time Taken Comments Blood Pressure 105/63 05/13/2024 11:55 AM EST Pulse 84 05/13/2024 11:55 AM EST Temperature 36.8 C (98.3 F) 05/13/2024 11:55 AM EST Respiratory Rate 18 05/13/2024 11:55 AM EST Oxygen Saturation 95% 05/13/2024 11:55 AM EST Inhaled Oxygen Concentration - - Weight 45.4 kg (100 lb) 05/13/2024 11:55 AM EST Height 129.5 cm (4' 3 ) 05/13/2024 11:55 AM EST Body Mass Index 27.03 05/13/2024 11:55 AM EST Plan of Treatment Health Maintenance Due Date Last Done Comments Dental Oral Exam 1959 Dental Prophylaxis 1959 Dental X-Ray: Bitewings 1959 Dental X-Ray: Full Mouth 1959 [facility]-Bone Density Scan 1959 [facility]-Hepatitis C Screening 1959 [facility]-Medicare Annual Wellness (AWV) 1959 [facility]-/Child/Adol SDOH Screenings 1959 [facility]- SDOH Screenings 1977 [facility]-Adult SDOH Screenings 1977 [facility]-DTaP,Tdap,and Td Vaccines (1 - Tdap) 1978 [facility]-Pap Smear 1980 [facility]-Cervical Cancer Screening 1989 [facility]-HPV/Cotest 1989 CT Colonography 2004 Colonoscopy 2004 FIT-DNA 2004 FIT 2004 FOBT 2004 Sigmoidoscopy 2004 [facility]-Colorectal Cancer Screening 2004 [facility]-Breast Cancer Screening 2009 [facility]-Pneumococcal Vaccine: 50+ Years (1 of 1 - PCV) 2009 [facility]-Zoster Vaccines (1 of 2) 2009 [id number] Vaccine ( season) 2023 02/06/2023, 12/14/2021, 06/30/2021, Additional history exists [facility]-Depression Screening 03/13/2024 03/13/2023 [facility]-Influenza Vaccine (Season Ended) 2024 02/06/2023, 02/02/2022, 02/20/2018 [facility]-RSV Vaccine: 60+ Years or (1 - 1-dose 75+ series) 2034 [facility]-Obesity Intervention Completed 025, 03/04/2024, 01/30/2024, Additional history exists HPV Vaccines Aged Out No longer eligi ble based on patient's age to complete this topic [facility]-HIB Vaccines Aged Out No longer e ligible based on patient's age to complete this topic [facility]-Hepatitis A Vaccines Aged Out No longer eligible based on patient's age to complete this topic [facility]-IPV Vaccines Aged Out No longer e ligible based on patient's age to complete this topic [facility]-Rotavirus Vaccines Aged Out No lo nger eligible based on patient's age to complete this topic Goals Goal Patient Goal Type Associated Problems Recent Progress Patient-Stated? 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 Golf Cart Repairer Device Identifier Shelf Expiration Date Model / Serial / Lot G7 Acetabular System 46mm Shell Size, Liner Size B Uncemented 3 Hole Implanted:Qty: 1 on 12/18/2023 by Isaac Gage MD at [facility] Right: Hip [employer] 10/26/2032 [id number] / / [id number] Description:NONFILE- APPROVE D G7 Acetabular Liner 32mm Implanted:Qty: 1 on 12/18/2023 by Isaac Gage MD at [facility] Right: Hip [employer] 06/05/2028 [id number] / / [id number] Description:NONFILE- APROVED Chg Femoral [place] 125 De - [id number] Implanted:Qty: 1 on 12/18/2023 by Isaac Gage MD at [facility] Right: Hip [employer]-[id number] 03/15/2027 [id number] / / [id number] Chg Head Biol[employer] Delta Fem 32x-3.5mm - [id number] Implanted:Qty: 1 on 12/18/2023 by Isaac Gage MD at [facility] Right: Hip [employer]-[id number] 12/13/2032 [id number] / / [id number] Chg Screw Bone 6.5x20 Self-Tap - [id number] Implanted:Qty: 1 on 12/18/2023 by Isaac Gage MD at [facility] Right: Hip [employer]-[id number] 07/13/2030 [id number] / / [id number] Additional Health Concerns Active Problems Noted Date Diagnosed Date Autogenerated Problem 08/11/2024 [place] [address] [employer] [facility] MEDICAID [facility] MEDICAID DENTAL [employer] MEDICARE Advance Directives * Full Code (Latest Code Status on File) Date Activated Date Inactivated Comments 12/18/2023 8:46 AM 12/20/2023 5:55 PM Question Answer Comments Patient has decision-making capacity? Yes Care Teams Cloth Finishing Range Tender Relationship Specialty Start Date End Date Rafia Boyle APRN [address] [place] [address] PCP - General 11/17/23
--- OUTSIDE RECORDS SUMMARY | 2024-09-10 10:09 | XMS_ITS | Encounter Summary ---
Author Organization Healthcare Address [address] [place] [address] Care Team Providers Care Cotton Ball Machine Tender Name Role Phone Cassidy Contreras MD Primary Care Provider [phone] Rafia Boyle APRN Primary Care Provider [phone] Encounter Details Date Type Department Care Team ([facility] st Contact Info) Description 02/02/2023 Orders Only External Location [address] [place] [address] Provider, External Social History Tobacco Use Types Packs/Day Years Used Date Smoking Tobacco: Never Smokeless Tobacco: Never Alcohol Use Standard Drinks/Week Comments Never 0 (1 standard drink = 0.6 oz pur e alcohol) PHQ-2 Answer Date Recorded Patient Health Questionnaire-2 Score 0 03/29/2022 PHQ-2A Answer Date Recorded Patient Health Questionnaire-2 Score 0 03/29/2022 Comments No Sex and Gender Information Value Date Recorded Sex Assigned at Not on file Legal Sex Female 8:14 PM EDT Gender Identity Not on file Sexual Orientation Not on file documented as of this encounter Plan of Treatment Not on file documented as of this encounter Procedures Procedure Name Priority Date/Time Associated Diagnosis Comments CT MSK OUTSIDE IMAGES 02/02/2023 1:12 PM EST documented in this encounter Results * CT MSK OUTSIDE IMAGES (02/02/2023 1:12 PM EST) Anatomical Region Laterality Modality Computed Tomogra phy 02/02/2023 1:12 PM EST External Provider IMG CT PROCEDURES Final Result documented in this encounter Visit Diagnoses Not on filedocumented in this encounter Additional Health Concerns Assessment Noted Time A fall risk assessment has been complete d for the patient 01/02/2023 3:22 PM EDT A Body Mass Index follow-up plan has been documented for the patient 01/02/2023 4:03 PM EDT documented as of this encounter Care Teams Cotton Ball Machine Tender Relationship Specialty Start Date End Date Cassidy Contreras MD [address] [place] [id number] PCP - General 03/14/22 11/16/23 Rafia Boyle APRN [address] [place] [id number] PCP - General 11/17/23 documented as of this encounter
--- OUTSIDE RECORDS SUMMARY | 2024-09-10 10:09 | XMS_ITS | Data Portability ---
Author Organization Formerly [facility] Address [address] [place] [id number] Assessment Encounter Date Assessment Date Assessment LastModified by Organization Details LastModified Time 08/14/2023 08/14/2023 Patient presente d for medication refill. Patient tolerating medication well at current dose without adverse effects. Refilled as below. Discussed plan with patient, who expressed understanding. Follow up as noted below. Patient advised to take medication as directed here. Patient advised to rest initially and then slowly increase activity level. Monitor changes in symptoms such as numbness, tingling or weakness in legs, changes in bowel or bladder habits or worsening back pain. Proper ergonomics discussed. Referral to physical therapy as needed. Patient will call if symptoms worsen or if pain persists greater than 8 weeks. Discussed healthy nutrition for age. Otherwise developing well without physical or psychosocial concerns. Follow-up as below. [email or web address] Not available 08/14/2023 10:16:30 09/04/2023 09/04/2023 Established ab ent presented for follow up of: restless legs and weight management. Studies ordered as below. Discussed plan with patient, who expressed understanding. Follow up as noted below. Patient presented for medication refill. Patient tolerating medication well at current dose without adverse effects. Refilled as below. Discussed plan with patient, who expressed understanding. Follow up as noted below. Labs ordered and to be obtained later this week per patient request. [email or web address] Not available 09/04/2023 22:03:07 03/07/2024 03/07/2024 Patient presente d to office today for their Medicare Annual Wellness Visit. Education was provided on healthy nutrition, including a diet rich in fruits and vegetables, minimizing simple carbohydrates, salt, and saturated fats. Encouraged regular cardiovascular exercise such as walking at least 30 minutes daily, 5 times per week. Emphasized preventive health measures and educated pt on fall prevention and community-based lifestyle interventions to help reduce health risks and promote healthy living. The patient was advised to continue a healthy diet and exercise regularly. She also was advised to: followup with a accounts receivable specialist for a colonoscopy have a dermatology skin screening have a mammogram. Labs will be sent to evaluate blood count, renal function lipids and vitamin D. Medicare Preventive Services Check List reviewed and printed for patient. [email or web address] Not available 03/09/2024 22:05:32 07/02/2024 07/02/2024 Risks, benefits, and alternatives of the medication have been discussed with the patient. She would like to move forward with a prescription of trulicity for DM and weight . [email or web address] Not available 07/02/2024 14:28:22 Plan of Treatment Reminders Order Date Submit Date Provider Last Modified By Organization Details Last Modified Time Details Appointments Dietit anjel 2024 11:30A M Jessie Hamilton RDN, LDN Not available Not available Not available Diabet ic F/U 2024 11:40A M Rafia Boyle APRN Not available Not available Not available Lab lipid panel, serum 2023 024 RONAK [facility], [address], [address], [place], [address], 03/13/2024 04:10:58 CMP, serum or plasma 2023 024 RONAK [facility], [address], [address], [place], [address], 03/13/2024 04:10:57 CBC w/ auto diff 2023 024 RONAK [facility], [address], [place] [address], [place], [address], 03/13/2024 04:10:56 HbA1c (hemog lobin A1c), blood 2023 024 RONAK [facility], [address], [address], [place], [address], 03/13/2024 04:10:59 TSH + free T4, serum 2023 024 RONAK [facility], [address], [place] [address], [place], [address], 03/13/2024 04:10:55 cytolo gy report , thin prep, smear or scrapi ng, cervic al or vagina l 2023 024 RONAK [facility], [address], [address], [place], [address], 10/16/2023 08:21:52 lipid panel, serum 2023 024 RONAK [facility], [address], [place] [address], [place], [address], 09/08/2023 08:24:50 CMP, serum or plasma 2023 024 RONAK [facility], [address], [place] [address], [place], [address], 09/08/2023 08:24:49 TSH + free T4, serum 2023 024 RONAK [facility], [address], [place], [place], [address], 09/08/2023 08:24:47 CBC w/ auto diff 2023 024 RONAK [facility], [address], [place] [address], [place], [address], 09/08/2023 08:24:48 vitami n D, 25-hyd ajit, total, serum 2023 024 RONAK [facility], [address], [place] [address], [place], [address], 09/08/2023 08:24:52 HbA1c (hemog lobin A1c), blood 2023 024 RONAK [facility], [address], [place], [place], [address], 09/08/2023 08:24:51 Referral nutrit ionist /dieti clara referr al 2024 025 [email or web address] Jessie Headn, [address] [place] [address] , [place], [address], 08/22/2024 14:26:58 Procedures None record ed. Surgeries None record ed. Imaging MAMMO, screen ing, digita l, bilate ral 2023 024 [facility] [address] [place] [address] , [place], [address], 08/04/2024 04:04:55 DEXA, verteb ral fractu re assess ment 2023 024 [facility] [address] [place] [address] , [place], [address], 08/04/2024 04:04:55 MAMMO, screen ing, bilate ral 2023 024 [email or web address] [address] [place] [address] , [place], [address], 06/20/2024 11:09:00 Medication Orders Trulic ity 0.75 mg/0.5 mL subcut aneous pen inject or 2024 025 [facility], [address] [place] [address], [place], [address], 07/02/2024 14:25:45 ropini role 0.25 mg tablet 2023 024 [facility], [address] [place], [address], 03/09/2024 22:16:24 Premar in 0.625 mg/gra m vagina l cream 2023 024 [facility], [address] [place], [address], 10/11/2023 17:07:53 ropini role 0.25 mg tablet 2023 024 [facility], [address] [place], [address], 10/11/2023 16:33:32 ropini role 0.25 mg tablet 2023 024 [email or web address], [address] [place] [address], [address], 10/11/2023 16:33:23 atorva statin 80 mg tablet 2023 024 [facility], [address] [place] [address], [address], 08/14/2023 10:17:42 buprop ion HCl XL 150 mg 24 hr tablet , extend ed releas e 2023 024 [facility], [address] [place] [address], [address], 08/14/2023 10:17:41 diclof enac sodium 75 mg tablet ,delay ed releas e 2023 024 [facility], [address] [place] [address], [address], 08/14/2023 10:17:39 Patient TargetsNo targets recorded. Patient Instructions Encounter Date Encounter Id Patient Instructions Last Modified By Organization Details Last Modified Time 08/14/2023 [id number] restless legs syndrome: care instructions [email or web address] Not available 08/14/2023 10:17:31 Preventing Depression From Coming Back: Care Instructions [email or web address] Not available 08/14/2023 10:17:31 09/04/2023 [id number] body mass index: care instructions Not available 09/04/2023 10:54:04 learning about healthy weight [email or web address] Not available 09/04/2023 10:54:04 learning about breast cancer screening [email or web address] Not available 09/04/2023 10:59:44 10/11/2023 [id number] body mass index: care instructions Not available 10/12/2023 12:16:21 learning about healthy weight Not available 10/12/2023 12:16:21 -Discussed all lab work ordered today, pt consents to all. We will call abnormal test results in 7-10 days. Patient is advised that they will be notified of the availability of normal results from [employer] by phone call, text or email. Not available 10/12/2023 12:17:36 03/07/2024 [id number] advance directives: care instructions [email or web address] Not available 03/09/2024 22:16:16 learning about depression [email or web address] Not available 03/09/2024 22:16:16 preventing falls : care instructions [email or web address] Not available 03/09/2024 22:16:16 medicare preventive services guide Not available 03/09/2024 22:16:16 07/02/2024 [id number] learning about type 2 diabetes [email or web address] Not available 07/02/2024 14:25:43 type 2 diabetes: care instructions [email or web address] Not available 07/02/2024 14:25:43 learning about healthy weight [email or web address] Not available 07/02/2024 14:25:43 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 for Type 2 diabetes mellitus Referring Physician: Rafia Boyle, Family Medicine, Encounter Date: 07/02/2024 Results Created Date Observation Date Name Description Value Unit Range Abnormal Flag Note LastModifiedBy Organization Detail LastModifiedTime 09/07/1909/08/2023 TSH+F REE T4 TSH 1.860 uIU/m L 0.450- 4.500 Not Available [facility] ([facility]) [address] [place], [address], 09/08/2023 08:24:47 09/07/1909/08/2023 TSH+F REE T4 T4,free(dire ct) 1.27 NG/dL 0.82-1 .77 Not Available [facility] ([facility]) [address] [place], [address], 09/08/2023 08:24:47 09/07/19 24 09/08/2023 CBC WITH DIFFE RENTI AL/PL ATELE T WBC 5.8 x10e3 /uL 3.4-10 .8 Not Available [facility] ([facility]) [address] [place], [address], 09/08/2023 08:24:48 09/07/19 24 09/08/2023 CBC WITH DIFFE RENTI AL/PL ATELE T RBC 3.65 x10e6 /uL 3.77-5 .28 below low normal Not Available [facility] ([facility]) [address] [place], [address], 09/08/2023 08:24:48 09/07/19 24 09/08/2023 CBC WITH DIFFE RENTI AL/PL ATELE T hemoglobin 10.8 g/dL 11.1-1 5.9 below low normal Not Available [facility] ([facility]) [address] [place], [address], 09/08/2023 08:24:48 09/07/1909/08/2023 CBC WITH DIFFE RENTI AL/PL ATELE T hematocrit 33.8 % 34.0-4 6.6 below low normal Not Available [facility] ([facility]) [address] [place], [address], 09/08/2023 08:24:48 09/07/19 24 09/08/2023 CBC WITH DIFFE RENTI AL/PL ATELE T MCV 93 fL 79-97 Not Available [facility] ([facility]) [address] [place], [address], 09/08/2023 08:24:48 09/07/19 24 09/08/2023 CBC WITH DIFFE RENTI AL/PL ATELE T MCH 29.6 pg 26.6-3 3.0 Not Available [facility] ([facility]) [address] [place], [address], 09/08/2023 08:24:48 09/07/19 24 09/08/2023 CBC WITH DIFFE RENTI AL/PL ATELE T MCHC 32.0 g/dL 31.5-3 5.7 Not Available [facility] ([facility]) [address] [facility], [place], [address], 09/08/2023 08:24:48 09/07/19 24 09/08/2023 CBC WITH DIFFE RENTI AL/PL ATELE T RDW 15.3 % 11.7-1 5.4 Not Available [facility] ([facility]) [address] [facility], [place], [address], 09/08/2023 08:24:48 09/07/19 24 09/08/2023 CBC WITH DIFFE RENTI AL/PL ATELE T platelets 137 x10e3 /uL 150-45 0 below low normal Not Available [facility] ([facility]) [address] [facility], [place], [address], 09/08/2023 08:24:48 09/07/19 24 09/08/2023 CBC WITH DIFFE RENTI AL/PL ATELE T neutrophils 52 % not estab. Not Available [facility] ([facility]) [address] [facility], [place], [address], 09/08/2023 08:24:48 09/07/19 24 09/08/2023 CBC WITH DIFFE RENTI AL/PL ATELE T lymphs 29 % not estab. Not Available [facility] ([facility]) [address] [place], [address], 09/08/2023 08:24:48 09/07/19 24 09/08/2023 CBC WITH DIFFE RENTI AL/PL ATELE T monocytes 11 % not estab. Not Available [facility] ([facility]) [address] [place], [address], 09/08/2023 08:24:48 09/07/19 24 09/08/2023 CBC WITH DIFFE RENTI AL/PL ATELE T eos 7 % not estab. Not Available [facility] ([facility]) [address] [facility], [place], [address], 09/08/2023 08:24:48 09/07/19 24 09/08/2023 CBC WITH DIFFE RENTI AL/PL ATELE T basos 1 % not estab. 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 0 Not Available [facility] ([facility]) [address] [place], [address], 09/08/2023 08:24:48 09/07/19 24 09/08/2023 CBC WITH DIFFE RENTI AL/PL ATELE T lymphs (absolute) 1.7 x10e3 /uL 0.7-3. 1 Not Available [facility] ([facility]) [address] [place], [address], 09/08/2023 08:24:48 09/07/19 24 09/08/2023 CBC WITH DIFFE RENTI AL/PL ATELE T monocytes(ab solute) 0.6 x10e3 /uL 0.1-0. 9 Not Available [facility] ([facility]) [address] [place], [address], 09/08/2023 08:24:48 09/07/19 24 09/08/2023 CBC WITH DIFFE RENTI AL/PL ATELE T eos (absolute) 0.4 x10e3 /uL 0.0-0. 4 Not Available [facility] ([facility]) [address] [facility], [place], [address], 09/08/2023 08:24:48 09/07/19 24 09/08/2023 CBC WITH DIFFE RENTI AL/PL ATELE T baso (absolute) 0.1 x10e3 /uL 0.0-0. 2 Not Available [facility] ([facility]) [address] [facility], [place], [address], 09/08/2023 08:24:48 09/07/19 24 09/08/2023 CBC WITH DIFFE RENTI AL/PL ATELE T immature granulocytes 0 % not estab. Not Available [facility] ([facility]) [address] [facility], [place], [address], 09/08/2023 08:24:48 09/07/19 24 09/08/2023 CBC WITH DIFFE RENTI AL/PL ATELE T immature grans (abs) 0.0 x10e3 /uL 0.0-0. 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 METAB OLIC PANEL (14) glucose 94 mg/dL 70-99 Not Available [facility] ([facility]) [address] [place], [address], 09/08/2023 08:24:49 09/07/19 24 09/08/2023 COMP. METAB OLIC PANEL (14) BUN 21 mg/dL 8-27 Not Available [facility] ([facility]) [address] [place], [address], 09/08/2023 08:24:49 09/07/19 24 09/08/2023 COMP. METAB OLIC PANEL (14) creatinine 0.81 mg/dL 0.57-1 .00 Not Available [facility] ([facility]) [address] [place], [address], 09/08/2023 08:24:49 09/07/19 24 09/08/2023 COMP. METAB OLIC PANEL (14) eGFR 81 mL/mi n/1.7 3 >59 Not Available [facility] ([facility]) [address] [place], [address], 09/08/2023 08:24:49 09/07/19 24 09/08/2023 COMP. METAB OLIC PANEL (14) BUN/creatini ne ratio 26 12-28 Not Available [facility] ([facility]) [address] [place], [address], 09/08/2023 08:24:49 09/07/19 24 09/08/2023 COMP. METAB OLIC PANEL (14) sodium 135 mmol/ L 134-14 4 Not Available [facility] ([facility]) [address] [place], [address], 09/08/2023 08:24:49 09/07/19 24 09/08/2023 COMP. METAB OLIC PANEL (14) potassium 4.0 mmol/ L 3.5-5. 2 Not Available [facility] ([facility]) [address] [place], [address], 09/08/2023 08:24:49 09/07/19 24 09/08/2023 COMP. METAB OLIC PANEL (14) chloride 99 mmol/ L 96-106 Not Available [facility] ([facility]) [address] [place], [address], 09/08/2023 08:24:49 09/07/19 24 09/08/2023 COMP. METAB OLIC PANEL (14) carbon dioxide, total 20 mmol/ L 20-29 Not Available [facility] ([facility]) [address] [place], [address], 09/08/2023 08:24:49 09/07/19 24 09/08/2023 COMP. METAB OLIC PANEL (14) calcium 9.5 mg/dL 8.7-10 .3 Not Available [facility] ([facility]) [address] [place], [address], 09/08/2023 08:24:49 09/07/19 24 09/08/2023 COMP. METAB OLIC PANEL (14) protein, total 6.9 g/dL 6.0-8. 5 Not Available [facility] ([facility]) [address] [facility] [place], [address], 09/08/2023 08:24:49 09/07/19 24 09/08/2023 COMP. METAB OLIC PANEL (14) albumin 4.3 g/dL 3.9-4. 9 Not Available [facility] ([facility] [address] [facility] [place] [place], [address], 09/08/2023 08:24:49 09/07/19 24 09/08/2023 COMP. METAB OLIC PANEL (14) globulin, total 2.6 g/dL 1.5-4. 5 Not Available [facility] ([facility]) [address] [facility] [place], [address], 09/08/2023 08:24:49 09/07/19 24 09/08/2023 COMP. METAB OLIC PANEL (14) A/G ratio 1.7 Not Available [facility] ([facility]) [address] [facility] [place], [address], 09/08/2023 08:24:49 09/07/19 24 09/08/2023 COMP. METAB OLIC PANEL (14) bilirubin, total 0.3 mg/dL 0.0-1. 2 Not Available [facility] ([facility]) [address] [facility] [place], [address], 09/08/2023 08:24:49 09/07/19 24 09/08/2023 COMP. METAB OLIC PANEL (14) alkaline phosphatase 73 IU/L 44-121 Not Available [facility] ([facility]) [address] [facility] [place], [address], 09/08/2023 08:24:49 09/07/19 24 09/08/2023 COMP. METAB OLIC PANEL (14) AST (SGOT) 21 IU/L 0-40 Not Available [facility] ([facility]) [address] [facility] [place], [address], 09/08/2023 08:24:49 09/07/19 24 09/08/2023 COMP. METAB OLIC PANEL (14) ALT (SGPT) 9 IU/L 0-32 Not Available [facility] ([facility]) [address] [facility] [place], [address], 09/08/2023 08:24:49 09/07/19 24 09/08/2023 LIPID PANEL cholesterol, total 204 mg/dL 100-19 9 above high normal Not Available [facility] ([facility]) [address] [facility] [place], [address], 09/08/2023 08:24:50 09/07/19 24 09/08/2023 LIPID PANEL triglyceride s 100 mg/dL 0-149 Not Available [facility] ([facility]) [address] [place], [address], 09/08/2023 08:24:50 09/07/19 24 09/08/2023 LIPID PANEL HDL cholesterol 51 mg/dL >39 Not Available [facility] ([facility]) [address] [place], [address], 09/08/2023 08:24:50 09/07/19 24 09/08/2023 LIPID PANEL VLDL cholesterol alanna 18 mg/dL 5-40 Not Available [facility] ([facility]) [address] [place], [address], 09/08/2023 08:24:50 09/07/19 24 09/08/2023 LIPID PANEL LDL chol calc ([facility]) 135 mg/dL 0-99 above high normal Not Available [facility] ([facility]) [address] [place], [address], 09/08/2023 08:24:50 09/07/19 24 09/08/2023 LIPID PANEL LDL calc comment: 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 6 above high normal Predi abete s: 5.7 - 6.4 Diabe krystle: >6.4 Glyce yoan contr ol for adult s with diabe krystle: <7.0 Not Available [facility] ([facility]) [address] [place], [address], 09/08/2023 08:24:51 09/07/19 24 09/08/2023 VITAM IN D, 25-HY DROXY vitamin D, 25-hydroxy 33.8 NG/mL 30.0-1 00.0 Vitam in D defic iency has been defin ed by the Insti tute of Medic ine and an Endoc rine Socie ty pract ice guide line as a level of serum 25-OH vitam in D less than 20 ng/mL (1,2) . The Endoc rine Socie ty went on to furth er defin e vitam in D insuf ficie ncy as a level betwe en 21 and 29 ng/mL (2). 1. IOM (Inst itute of Medic ine). 2010. Dieta ry refer ence intak es for calci um and D. Yenifer brown [place]: The [facility] . 2. Arjun nam [place], Hernan johnson [place], Omid off-F leonard i [place], et al. Evalu ation , treat ment, and preve ntion of vitam in D defic iency : an Endoc rine Socie ty clini alanna pract ice guide line. JCEM. 2010; 96(7) :1911 -30. Not Available [facility] ([facility]) [address] [facility], [place], [address], 09/08/2023 08:24:52 10/11/19 24 10/15/2023 IGP, APTIM A HPV, RFX 16/18 ,45 HPV aptima Negati ve negati ve This nucle ic acid ampli ficat ion test detec ts fourt een high- risk HPV types (16,1 8,31, 33,35 ,39,4 5,51, 52,56 ,58,5 9,66, 68) witho ut diffe renti ation . Not Available [facility] ([facility]) [address] [facility] [place], [address], 10/16/2023 08:21:52 10/11/19 24 10/16/2023 IGP, APTIM A HPV, RFX 16/18 ,45 diagnosis: Commen t NEGAT HARJIT FOR INTRA EPITH ELIAL LESIO N OR MALIG NORMA . Not Available [facility] ([facility]) [address] [facility] [place], [address], 10/16/2023 08:21:52 10/11/19 24 10/16/2023 IGP, APTIM A HPV, RFX 16/18 ,45 specimen adequacy: Tejas monteiro Satis facto ry for evalu ation . No endoc ervic al compo nent is ident ified . Not Available [facility] ([facility]) [address] [place], [address], 10/16/2023 08:21:52 10/11/19 24 10/16/2023 IGP, APTIM A HPV, RFX 16/18 ,45 clinician provided ICD10: Tejas monteiro Z12.4 Not Available [facility] ([facility]) [address] [facility] [place], [address], 10/16/2023 08:21:52 10/11/19 24 10/16/2023 IGP, APTIM A HPV, RFX 16/18 ,45 performed by: oJyce Noriega (ASCP ) Not Available [facility] ([facility]) [address] [place], [address], 10/16/2023 08:21:52 10/11/19 24 10/16/2023 IGP, APTIM A HPV, RFX 16/18 ,45 . . Not Available [facility] ([facility]) [address] [place], [address], 10/16/2023 08:21:52 10/11/19 24 10/16/2023 IGP, APTIM A HPV, RFX 16/18 ,45 note: Tejas monteiro The Pap smear is a scree javier test desig reny to aid in the detec tion of tobin ligna nt and malig nant condi tions of the uteri ne cervi x. It is not a diagn ostic proce dure and shoul d not be used as the sole means of detec ting cervi alanna cance r. Both false -posi tive and false -nega tive repor ts do occur . Not Available [facility] ([facility]) [address] [place], [address], 10/16/2023 08:21:52 10/11/19 24 10/16/2023 IGP, APTIM A HPV, RFX 16/18 ,45 test methodology: Commen t This liqui d based ThinP rep(R ) pap test was zamzam oglesby with the use of an image guide linnea yuen Not Available [facility] ([facility]) [address] [facility], [place], [address], 10/16/2023 08:21:52 10/11/19 24 10/16/2023 IGP, APTIM A HPV, RFX 16/18 ,45 HPV genotype reflex Commen t Crite rashard not met, HPV Genot ype not perfo rmed. Not Available [facility] ([facility]) [address] [facility], [place], [address], 10/16/2023 08:21:52 03/12/20 24 03/13/2024 TSH+F REE T4 TSH 3.360 uIU/m L 0.450- 4.500 normal Not Available [facility] ([facility]) [address] [facility] [place], [address], 03/13/2024 04:10:55 03/12/20 24 03/13/2024 TSH+F REE T4 T4,free(dire ct) 1.00 NG/dL 0.82-1 .77 normal Not Available [facility] ([facility]) [address] [place], [address], 03/13/2024 04:10:55 03/12/20 24 03/12/2024 CBC WITH DIFFE RENTI AL/PL ATELE T WBC 4.1 x10e3 /uL 3.4-10 .8 normal Not Available [facility] ([facility]) [address] [place], [address], 03/13/2024 04:10:56 03/12/20 24 03/12/2024 CBC WITH DIFFE RENTI AL/PL ATELE T RBC 3.69 x10e6 /uL 3.77-5 .28 below low normal Not Available [facility] ([facility]) [address] [place], [address], 03/13/2024 04:10:56 03/12/20 24 03/12/2024 CBC WITH DIFFE RENTI AL/PL ATELE T hemoglobin 11.1 g/dL 11.1-1 5.9 normal Not Available [facility] ([facility]) [address] [place], [address], 03/13/2024 04:10:56 03/12/20 24 03/12/2024 CBC WITH DIFFE RENTI AL/PL ATELE T hematocrit 34.9 % 34.0-4 6.6 normal Not Available [facility] ([facility]) [address] [place], [address], 03/13/2024 04:10:56 03/12/20 24 03/12/2024 CBC WITH DIFFE RENTI AL/PL ATELE T MCV 95 fL 79-97 normal Not Available [facility] ([facility]) [address] [place], [address], 03/13/2024 04:10:56 03/12/20 24 03/12/2024 CBC WITH DIFFE RENTI AL/PL ATELE T MCH 30.1 pg 26.6-3 3.0 normal Not Available [facility] ([facility]) [address] [place], [address], 03/13/2024 04:10:56 03/12/20 24 03/12/2024 CBC WITH DIFFE RENTI AL/PL ATELE T MCHC 31.8 g/dL 31.5-3 5.7 normal Not Available [facility] ([facility]) [address] [place], [address], 03/13/2024 04:10:56 03/12/20 24 03/12/2024 CBC WITH DIFFE RENTI AL/PL ATELE T RDW 14.8 % 11.7-1 5.4 Not Available [facility] ([facility]) [address] [facility], [place], [address], 03/13/2024 04:10:56 03/12/20 24 03/12/2024 CBC WITH DIFFE RENTI AL/PL ATELE T platelets 139 x10e3 /uL 150-45 0 below low normal Not Available [facility] ([facility]) [address] [facility], [place], [address], 03/13/2024 04:10:56 03/12/20 24 03/12/2024 CBC WITH DIFFE RENTI AL/PL ATELE T neutrophils 42 % not estab. normal Not Available [facility] ([facility]) [address] [facility], [place], [address], 03/13/2024 04:10:56 03/12/20 24 03/12/2024 CBC WITH DIFFE RENTI AL/PL ATELE T lymphs 34 % not estab. normal Not Available [facility] ([facility]) [address] [facility], [place], [address], 03/13/2024 04:10:56 03/12/20 24 03/12/2024 CBC WITH DIFFE RENTI AL/PL ATELE T monocytes 13 % not estab. normal Not Available [facility] ([facility]) [address] [facility], [place], [address], 03/13/2024 04:10:56 03/12/20 24 03/12/2024 CBC WITH DIFFE RENTI AL/PL ATELE T eos 9 % not estab. normal Not Available [facility] ([facility]) [address] [facility], [place], [address], 03/13/2024 04:10:56 03/12/20 24 03/12/2024 CBC WITH DIFFE RENTI AL/PL ATELE T basos 1 % not estab. normal Not Available [facility] ([facility]) [address] [place], [address], 03/13/2024 04:10:56 03/12/20 24 03/12/2024 CBC WITH DIFFE RENTI AL/PL ATELE T immature cells [employer] Not Available [facility] ([facility]) [address] [place], [address], 03/13/2024 04:10:56 03/12/20 24 03/12/2024 CBC WITH DIFFE RENTI AL/PL ATELE T neutrophils (absolute) 1.7 x10e3 /uL 1.4-7. 0 normal Not Available [facility] ([facility]) [address] [place], [address], 03/13/2024 04:10:56 03/12/20 24 03/12/2024 CBC WITH DIFFE RENTI AL/PL ATELE T lymphs (absolute) 1.4 x10e3 /uL 0.7-3. 1 normal Not Available [facility] ([facility]) [address] [place], [address], 03/13/2024 04:10:56 03/12/20 24 03/12/2024 CBC WITH DIFFE RENTI AL/PL ATELE T monocytes(ab solute) 0.6 x10e3 /uL 0.1-0. 9 normal Not Available [facility] ([facility]) [address] [place], [address], 03/13/2024 04:10:56 03/12/20 24 03/12/2024 CBC WITH DIFFE RENTI AL/PL ATELE T eos (absolute) 0.4 x10e3 /uL 0.0-0. 4 normal Not Available [facility] ([facility]) [address] [place], [address], 03/13/2024 04:10:56 03/12/20 24 03/12/2024 CBC WITH DIFFE RENTI AL/PL ATELE T baso (absolute) 0.0 x10e3 /uL 0.0-0. 2 normal Not Available [facility] ([facility]) [address] [facility], [place], [address], 03/13/2024 04:10:56 03/12/20 24 03/12/2024 CBC WITH DIFFE RENTI AL/PL ATELE T immature granulocytes 1 % not estab. Not Available [facility] ([facility]) [address] [facility], [place], [address], 03/13/2024 04:10:56 03/12/20 24 03/12/2024 CBC WITH DIFFE RENTI AL/PL ATELE T immature grans (abs) 0.0 x10e3 /uL 0.0-0. 1 Not Available [facility] ([facility]) [address] [facility], [place], [address], 03/13/2024 04:10:56 03/12/20 24 03/12/2024 CBC WITH DIFFE RENTI AL/PL ATELE T NRBC [employer] Not Available [facility] ([facility]) [address] [facility], [place], [address], 03/13/2024 04:10:56 03/12/20 24 03/12/2024 CBC WITH DIFFE RENTI AL/PL ATELE T hematology comments: [employer] Not Available [facility] ([facility]) [address] [facility], [place], [address], 03/13/2024 04:10:56 03/12/20 24 03/13/2024 COMP. METAB OLIC PANEL (14) glucose 91 mg/dL 70-99 normal Not Available [facility] ([facility]) [address] [place], [address], 03/13/2024 04:10:57 03/12/20 24 03/13/2024 COMP. METAB OLIC PANEL (14) BUN 10 mg/dL 8-27 normal Not Available [facility] ([facility]) [address] [facility] [place], [address], 03/13/2024 04:10:57 03/12/20 24 03/13/2024 COMP. METAB OLIC PANEL (14) creatinine 0.65 mg/dL 0.57-1 .00 normal Not Available [facility] ([facility]) [address] [facility] [place], [address], 03/13/2024 04:10:57 03/12/20 24 03/13/2024 COMP. METAB OLIC PANEL (14) eGFR 98 mL/mi n/1.7 3 >59 normal Not Available [facility] ([facility]) [address] [facility] [place], [address], 03/13/2024 04:10:57 03/12/20 24 03/13/2024 COMP. METAB OLIC PANEL (14) BUN/creatini ne ratio 15 12-28 normal Not Available [facility] ([facility]) [address] [facility] [place], [address], 03/13/2024 04:10:57 03/12/20 24 03/13/2024 COMP. METAB OLIC PANEL (14) sodium 139 mmol/ L 134-14 4 normal Not Available [facility] ([facility]) [address] [place], [address], 03/13/2024 04:10:57 03/12/20 24 03/13/2024 COMP. METAB OLIC PANEL (14) potassium 4.5 mmol/ L 3.5-5. 2 normal Not Available [facility] ([facility]) [address] [facility] [place], [address], 03/13/2024 04:10:57 03/12/20 24 03/13/2024 COMP. METAB OLIC PANEL (14) chloride 102 mmol/ L 96-106 normal Not Available [facility] ([facility]) [address] [place], [place], [address], 03/13/2024 04:10:57 03/12/20 24 03/13/2024 COMP. METAB OLIC PANEL (14) carbon dioxide, total 25 mmol/ L 20-29 normal Not Available [facility] ([facility]) [address] [place], [address], 03/13/2024 04:10:57 03/12/20 24 03/13/2024 COMP. METAB OLIC PANEL (14) calcium 9.7 mg/dL 8.7-10 .3 normal Not Available [facility] ([facility]) [address] [place], [place], [address], 03/13/2024 04:10:57 03/12/20 24 03/13/2024 COMP. METAB OLIC PANEL (14) protein, total 7.0 g/dL 6.0-8. 5 normal Not Available [facility] ([facility]) [address] [place], [address], 03/13/2024 04:10:57 03/12/20 24 03/13/2024 COMP. METAB OLIC PANEL (14) albumin 4.4 g/dL 3.9-4. 9 normal Not Available [facility] ([facility]) [address] [place], [address], 03/13/2024 04:10:57 03/12/20 24 03/13/2024 COMP. METAB OLIC PANEL (14) globulin, total 2.6 g/dL 1.5-4. 5 Not Available [facility] ([facility]) [address] [place], [address], 03/13/2024 04:10:57 03/12/20 24 03/13/2024 COMP. METAB OLIC PANEL (14) bilirubin, total 0.2 mg/dL 0.0-1. 2 normal Not Available [facility] ([facility]) [address] [facility] [place], [address], 03/13/2024 04:10:57 03/12/20 24 03/13/2024 COMP. METAB OLIC PANEL (14) alkaline phosphatase 84 IU/L 44-121 normal Not Available [facility] ([facility]) [address] [facility] [place], [address], 03/13/2024 04:10:57 03/12/20 24 03/13/2024 COMP. METAB OLIC PANEL (14) AST (SGOT) 21 IU/L 0-40 normal Not Available [facility] ([facility]) [address] [facility] [place], [address], 03/13/2024 04:10:57 03/12/20 24 03/13/2024 COMP. METAB OLIC PANEL (14) ALT (SGPT) 11 IU/L 0-32 normal Not Available [facility] ([facility]) [address] [facility] [place], [address], 03/13/2024 04:10:57 03/12/20 24 03/13/2024 LIPID PANEL cholesterol, total 203 mg/dL 100-19 9 above high normal Not Available [facility] ([facility]) [address] [facility] [place], [address], 03/13/2024 04:10:58 03/12/20 24 03/13/2024 LIPID PANEL triglyceride s 101 mg/dL 0-149 normal Not Available [facility] ([facility]) [address] [place], [address], 03/13/2024 04:10:58 03/12/20 24 03/13/2024 LIPID PANEL HDL cholesterol 57 mg/dL >39 normal Not Available [facility] ([facility]) [address] [place], [address], 03/13/2024 04:10:58 03/12/20 24 03/13/2024 LIPID PANEL VLDL cholesterol alanna 18 mg/dL 5-40 Not Available [facility] ([facility]) [address] [place], [address], 03/13/2024 04:10:58 03/12/20 24 03/13/2024 LIPID PANEL LDL chol calc ([facility]) 128 mg/dL 0-99 above high normal Not Available [facility] ([facility]) [address] [place], [address], 03/13/2024 04:10:58 03/12/20 24 03/13/2024 LIPID PANEL LDL calc comment: [employer] Not Available [facility] ([facility]) [address] [facility] [place], [address], 03/13/2024 04:10:58 03/12/20 24 03/13/2024 HEMOG LOBIN A1C hemoglobin A1C 6.4 % 4.8-5. 6 above high normal Predi abete s: 5.7 - 6.4 Diabe krystle: >6.4 Glyce yoan contr ol for adult s with diabe krystle: <7.0 Not Available [facility] ([facility]) [address] [facility], [place], [address], 03/13/2024 04:10:59 06/21/19 25 12/24/2020 MAMMO , zamzam ontiverosg, digit al, bilat eral No observ ation record ed. [address] , [place], [address], 07/03/2024 10:11:20 06/26/19 25 12/24/2020 MAMMO zamzam, digit al, bilat eral No observ ation record ed. [address] , [place], [address], 07/03/2024 10:11:19 Result Notes None recorded. 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 Active 2017 Cassidy Contreras MD [address], [place], [address] [facility] 8 11:28:44 Scoliosi s deformit y of spine 238031475 Active 2020 Cassidy Contreras MD [address], [place], [address] [facility] 2 09:08:45 Osteoart hritis 613713835 Active 2020 Cassidy Contreras MD [address], [place], [address] [facility] 2 09:08:45 Pain of right hip joint 27944011788 9102 Active 2020 Cassidy Contreras MD [address], [place], [address], [place] [facility] 2 09:08:45 Pain in both feet 46943038196 415011 Active 2020 Cassidy Contreras MD [address], [place], [address] [facility] 2 09:08:45 Osteoart hritis of knee 503907089 Active 2021 Cassidy Contreras MD [address], [place], [address], [place] [facility] 2 09:08:45 Major depressi ve disorder 188397342 Active 2021 Cassidy Contreras MD [address], [place], [address] [facility] 09:08:45 Nausea 320304577 Active 2021 Cassidy Contreras MD [address], [place], [address] [facility] 2 09:08:45 Bilatera l osteoart hritis of knees 21231033339 9107 Active 2021 Cassidy Contreras MD [address], [place], [address], [place] [facility] 2 09:34:40 Restless legs 96645676 Active 2021 Cassidy Contreras MD [address], [place], [address] [facility] 2 09:34:56 Lumbar radiculo amando 534095590 Active 2021 Cassidy Contreras MD [address], [place], [address] [facility] 2 10:19:43 Pain of right knee joint 69073162644 4100 Active 2021 Cassidy Contreras MD [address], [place], [address], [place] [facility] 10:22:17 Pain in right lower limb 387321276 Active 2021 Cassidy Contreras MD [address], [place], [address] [facility] 15:45:53 Pain in left lower limb 004446466 Active 2021 Cassidy Contreras MD [address], [place], [address] [facility] 2 15:45:55 Arthriti s of first carpomet acarpal joint of right hand 65759160851 20677 Active 2022 Cassidy Contreras MD [address], [place], [address], [place] [facility] 12:52:29 Fatigue 65567573 Active 2023 Rafia Boyle APRN [address], [place], [address] [facility] 4 10:47:53 Divertic ulosis of colon 970503548 Active 2023 colonosc opy 11/2021 Meghan Santos APRN [address], [place], [address], [place] [facility] 12:04:36 Internal hemorrho ids 69156938 Active 2023 seen on colonosc opy report 12/15 Meghan Santos APRN [address], [place], [address], [place] [facility] 4 12:04:49 Diet educatio n Active 2023 Meghan Santos, [employer] [address], [place], [address] [facility] 4 12:15:41 Body mass index 25-29 - overweig ht 578584554 Active 2023 Meghan Santos, [employer] [address], [place], [address], [place] [facility] 4 12:17:42 Overweig ht 648586201 Active 2023 Meghan Santos, [employer] [address], [place], [address], [place] [facility] 4 12:17:43 Dyspareu donnell 92093548 Active 2023 Meghan Santos, [employer] [address], [place], [address], [place] [facility] 4 12:18:21 Hypercho lesterol emia 43815066 Completed 07/27/2016 Cassidy Contreras MD [address], [place], [address] [facility] 10:13:08 Seasonal allergy 712039949 Active Cassidy Contreras MD [address], [place], [address], [place] [facility] 09:08:45 Scoliosi s of lumbar spine 369172168 Active Cassidy Contreras MD [address], [place], [address], [place] [facility] 09:08:45 Type 2 diabetes mellitus 24766377 Active 2023 Rafia Boyle [employer] [address], [place], [address], [place] [facility] 14:19:59 Mixed hyperlip idemia 236176571 Active 2016 Cassidy Contreras MD [address], [place], [address], [place] [facility] 09:08:45 Problem Notes None recorded. Procedures Surgical History Date Name Laterality Status Provider Name and Address Organization Details Recorded Time 03/07/20 Advance Care Planning completed Rafia Boyle APRN [address], [place], [address], [place] - [facility] 03/09/2024 22:05:34 03/07/20 Functional Status Assessed completed Rafia Boyle APRN [address], [place], [address], [place] [facility] 03/09/2024 22:05:34 12/18/19 Hip Replacement completed Norma Bush [place] - [facility] 03/07/2024 11:04:22 10/11/19 24 Date of Last Pap Smear completed Meghan Santos APRN [address], [place], [address], [place] [facility] 10/18/2023 11:08:00 05/21/19 24 procedure on wrist completed Dre Clements [place] - [facility] 10/11/2023 16:36:45 06/23/19 23 Cryosurgery Dermatology completed Mikaela Saucedo APRN [address], [place], [address], [place] [facility] 06/22/2022 14:56:41 12/06/19 22 Date of Last Colonoscopy completed Meghan Santos APRN [address], [place], [address], [place] [facility] 10/12/2023 12:03:47 12/25/19 21 Date of Last Mammogram completed Kaitlin Anthony RN [address], [place], [address], [place] [facility] 02/25/2021 16:21:24 04/27/19 21 Systolic B/P less than 130 mm Hg completed Meghan Nunez [place] - [facility] 04/27/2020 10:54:00 04/27/19 21 Diastolic B/P less than 80 mm Hg completed Meghan Nunez [place] [facility] 04/27/2020 10:54:04 03/26/19 12 Most Recent Bone Density completed Makeda Barbosa [place] - [facility] 05/17/2016 09:38:27 Imaging Results None recorded. Procedure Notes None recorded. Medical Equipment None Reported. Allergies No known drug allergies Medications Name Sig Start Date Stop Date Status Note LastModified by Organization Details LastModified Time ketoprofe n lidocaine bupivacai ne meloxicam # 15% 5% 2% 0.1% tdg APPLY 1-2 GRAMS TO AFFECTED AREAS 3-4 TIMES DAILY 10/10 completed Not Available Not Available Not Available amoxicill in 500 mg capsule TAKE FOUR CAPSULES BY MOUTH ONE HOUR BEFORE DENTAL APPOINTM ENT 08/13 completed Not Available Not Available Not Available atorvasta tin 80 mg tablet TAKE 1 TABLET BY MOUTH ONCE DAILY AT BEDTIME 2024 active Not Available Not Available Not Avai lable diclofena c 3 % topical gel 08/13 completed Not Available Not Available Not Available Carafate 1 gram tablet take 1 tablet (1 gram) by oral route 2 times per day on an empty stomach for 30 days 04/27 completed Carafate 1 gram oral tablet;P rescribe Status: Prescrib ed on: 02/11/20 15 10:24AM; User: [email or web address]; Est. Completi on: 03/12/20 15;Pharm acyVerif ied: 02/11/20 15 10:24AM Not Available Not Available Not Available cetirizin e 10 mg tablet take 1 tablet (10 mg) by oral route once daily for 14 days 05/17 completed cetirizi ne 10 mg oral tablet;P rescribe Status: Prescrib ed on: 01/14/20 15 10:52AM; Disconti nued Status: Disconti nued on: 05/17/19 16 10:32AM; User: [email or web address]; Est. Completi on: 01/28/20 15;Pharm acyVerif ied: 01/14/20 15 10:52AM Not Available Not Available Not Available pravastat in 40 mg tablet take 1 tablet (40 mg) by oral route once daily at bedtime 05/20 completed pravasta tin 40 mg oral tablet;P rescribe Status: Prescrib ed on: 10/12/19 13 4:47PM;D iscontin ued Status: Disconti nued on: 05/20/19 14 12:00PM; User: [email or web address]; Est. Completi on: 04/09/19 14;Indic ation: Mixed Hyperlip idemia - ();Phar Ronald fied: 10/12/19 13 4:47PM Not Available Not Available Not Available ibuprofen 800 mg tablet 08/13 completed Not Available Not Available Not Available hydrocodo ne 5 mg-acetam inophen 325 mg tablet TAKE 1 TABLET BY MOUTH EVERY 6 HOURS NEEDED FOR PAIN 03/07 completed Not Available Not Available Not Available meloxicam 15 mg tablet take 1 tablet (15 mg) by oral route once daily with food 03/07 completed Not Available Not Available Not Available famotidin e 40 mg tablet TAKE 1 TABLET BY MOUTH ONCE DAILY FOR 90 DAYS 08/13 completed Not Available Not Available Not Available penicilli n V potassium 500 mg tablet TAKE 1 TABLET BY MOUTH EVERY 8 HOURS UNTIL ALL TAKEN 12/20 completed Not Available Not Available Not Available aspirin 81 mg tablet,de layed release take 1 tablet (81 mg) by oral route once daily 03/07 completed Not Available Not Available Not Available tramadol 50 mg tablet Take 1 tablet every 6 hours by oral route as needed. 08/13 completed Not Available Not Available Not Available acetamino phen 500 mg tablet 03/07 completed Not Available Not Available Not Available triamtere ne 37.5 mg-hydroc hlorothia zide 25 mg capsule 10/15 completed Not Available Not Available Not Available prednison e 10 mg tablets in a dose pack take as directed 06/06 completed predniso ne 10 mg oral tablets, dose pack;Rec orded Status: Recorded on: 05/25/19 13 4:16PM;D iscontin ued Status: Disconti nued on: 06/07/19 13 9:52AM;U ser: [email or web address]; Printed: 05/25/19 13 Not Available Not Available Not Available famotidin e 20 mg tablet take 1 tablet (20 mg) by oral route 2 times per day for 15 days 10/28 completed famotidi ne 20 mg oral tablet;R ecorded Status: Recorded on: 05/25/19 13 4:16PM;D iscontin ued Status: Disconti nued on: 10/29/19 13 12:58PM; User: [email or web address] Est. Completi on: 06/09/19 13;Print ed: 05/25/19 13 Not Available Not Available Not Available ropinirol e 0.25 mg tablet Take 1 tablet twice a day by oral route as needed. 2023 active Not Available Not Available Not Avai lable promethaz ine 25 mg tablet take 1 tablet (25 mg) by oral route every 6 hours as needed for 7 days 05/17 completed prometha zine 25 mg oral tablet;P rescribe Status: Prescrib ed on: 01/14/20 15 10:52AM; Disconti nued Status: Disconti nued on: 05/17/19 16 10:32AM; User: [email or web address] Est. Completi on: 01/21/20 15;Pharm acyVerif ied: 01/14/20 15 10:52AM Not Available Not Available Not Available hydrochlo rothiazid e 12.5 mg capsule 10/15 completed Not Available Not Available Not Available omeprazol e 20 mg capsule,d elayed release 03/07 completed Not Available Not Available Not Available diclofena c sodium 75 mg tablet,de layed release TAKE 1 TABLET BY MOUTH TWICE DAILY WITH MEALS NEEDED active Not Available Not Available No t Available montel[address] st 10 mg tablet take 1 tablet (10 mg) by oral route once daily in the evening for 30 days 10/15 completed monteluk ast 10 mg oral tablet;P rescribe Status: Prescrib ed on: 06/09/19 16 4:13PM;U ser: [email or web address] Est. Completi on: 09/07/19 16;Pharm acyVerif ied: 06/09/19 16 4:13PM Not Available Not Available Not Available gabapenti n 100 mg capsule 03/07 completed Not Available Not Available Not Available ibuprofen 600 mg tablet TAKE 1 TABLET BY MOUTH EVERY 6 TO 8 HOURS NEEDED FOR PAIN active Not Available Not Available No t Available methylpre dnisolone 4 mg tablets in a dose pack TAKE BY MOUTH DIRECTED ON INSIDE OF PACKAGE FOR 6 DAYS 03/07 completed Not Available Not Available Not Available docusate sodium 250 mg capsule 03/07 completed Not Available Not Available Not Available ketorolac 60 mg/2 mL intramusc ular solution Inject 60 mg by intramus cular route. 04/29 completed Not Available Not Available Not Available fluticaso ne propionat e 50 mcg/actua tion nasal spray,boo pension inhale 1 puff by nasal route 2 times a day 10/15 completed Not Available Not Available Not Available amoxicill in 500 mg-potass ium clavulana te 125 mg tablet TAKE 1 TABLET BY MOUTH TWICE DAILY FOR 10 DAYS 03/07 completed Not Available Not Available Not Available oxycodone 5 mg tablet 03/07 completed Not Available Not Available Not Available Pepto-Bis mol 262 mg/15 mL oral suspensio n Take 15 mL every 4 hours by oral route as needed. 2021 active Not Available Not Available Not Avai lable Premarin 0.625 mg/gram vaginal cream Insert 0.5 g twice a week by vaginal route at bedtime. active Not Available Not Available No t Available Crestor 20 mg tablet take 1 tablet (20 mg) by oral route once daily at bedtime for 30 days 10/11 completed Crestor 20 mg oral tablet;R ecorded Status: Recorded on: 06/07/19 13 10:34AM; Disconti nued Status: Disconti nued on: 10/12/19 13 4:47PM;U ser: [email or web address];Es t. Completi on: 12/04/19 13;Print ed: 06/07/19 13 Not Available Not Available Not Available bupropion HCl XL 300 mg 24 hr tablet, extended release TAKE 1 TABLET BY MOUTH ONCE DAILY 10/17 completed Not Available Not Available Not Available bupropion HCl XL 150 mg 24 hr tablet, extended release Take 1 tablet every day by oral route for 90 days. active Not Available Not Available No t Available chlorhexi dine gluconate 0.12 % mouthwash 12/20 completed Not Available Not Available Not Available magnesium TAKE 1 TABLET TWICE DAILY 04/27 completed Not Available Not Available Not Available vitamin B complex 1 tab QD 08/13 completed Not Available Not Available Not Available Sleep Aid OTC active Not Available Not Shauna ilable Not Available Probiotic TAKE 1 BY MOUTH DAILY 04/27 completed Not Available Not Available Not Available Centrum Silver Ultra Women's tablet take 1 tablet by oral route daily 10/28 completed Centrum Silver Ultra Women's Oral Tablet;R ecorded Status: Recorded on: 05/19/19 12 10:49AM; Disconti nued Status: Disconti nued on: 10/29/19 13 12:58PM; User: [email or web address]; Printed: 05/19/19 12 Not Available Not Available Not Available melatonin 10 mg tablet Take 1 tablet every day by oral route at bedtime. 10/15 completed Not Available Not Available Not Available Nasacort 55 mcg nasal spray aerosol apply 2 sprays by nasal route daily 02/16 completed Nasacort 55 mcg nasal aerosol, spray;Pr escribe Status: Prescrib ed on: 02/17/20 15 12:58PM; Disconti nued Status: Disconti nued on: 02/17/20 15 3:26PM;U ser: groomsb; Indicati on: Other allergic rhinitis - (477.8); Pharmacy Verified : 02/17/20 15 12:58PM Not Available Not Available Not Available Trulicity 0.75 mg/0.5 mL subcutane ous pen injector active Not Available Not Available Not Available Sutab 1.479-0.1 88-0.225 gram tablet TAKE DIRECTED 10/10 completed Not Available Not Available Not Available Vitals Date Recorded Body height Body mass index (BMI) Body weight Oxygen saturation Oxygen saturation in Arterial blood by Pulse oximetry Heart rate Respiratory rate Systolic blood pressure Diastolic blood pressure Provider Name and Address Organization Details Last Updated DateTime 5 129.54 cm 29.2 kg/m2 73186.9 8 g 97 % 97 % 78 /min 18 /min 110 mm[Hg] 72 mm[Hg] [facility]a [facility]hea in [place] [facility] 5 13:44:42 Date Recorded Body height Body mass index (BMI) Body weight Body temperature Heart rate Oxygen saturation Oxygen saturation in Arterial blood by Pulse oximetry Respiratory rate Systolic blood pressure Diastolic blood pressure Provider Name and Address Organization Details Last Updated DateTime 4 129.54 cm 27.7 kg/m2 93311.5 7 g 98.2 [degF] 83 /min 97 % 97 % 16 /min 110 mm[Hg] 68 mm[Hg] Norma Bethea in [facility] 4 09:41:49 Date Recorded Body height Body mass index (BMI) Body weight Body temperature Respiratory rate Oxygen saturation Oxygen saturation in Arterial blood by Pulse oximetry Heart rate Systolic blood pressure Diastolic blood pressure Provider Name and Address Organization Details Last Updated DateTime 4 129.54 cm 27.7 kg/m2 53276.1 7 g 98.1 [degF] 16 /min 97 % 97 % 99 /min 120 mm[Hg] 72 mm[Hg] Norma Bethea in [facility] 4 10:33:10 Date Recorded Body height Body mass index (BMI) Body weight Systolic blood pressure Diastolic blood pressure Provider Name and Address Organization Details Last Updated DateTime 10/11/2023 129.54 cm 27.3 kg/m2 40134.83 g 108 mm[Hg] 60 mm[Hg] Dre Clements [facility] 4 16:41:36 Date Recorded Body height Respiratory rate Oxygen saturation Oxygen saturation in Arterial blood by Pulse oximetry Heart rate Systolic blood pressure Diastolic blood pressure Provider Name and Address Organization Details Last Updated DateTime 4 129.54 cm 18 /min 98 % 98 % 78 /min 112 mm[Hg] 64 mm[Hg] Norma Bethea [facility] 4 11:06:00 Social History Question Answer Notes LastModified by Organizat ion Details LastModified Time Tobacco Smoking Status [facility]/2016 09:34:32 Able To Swim? Yes Information not available 05/17/2016 Do You Have An Advance Directive? No Information not available 05/17/2016 Do You Wear A Helmet When Biking? No Information not available 05/17/2016 Are You Blind Or Do You Have Difficulty Seeing? No Information not available 05/17/2016 Is Blood Transfusion Acceptable In An Emergency? Yes Information not available 11/07/2016 What Is Your Level Of Caffeine Consumption? None Information not available 05/17/2016 How Much Tobacco Do You Chew? None Information not available 11/07/2016 Are You Deaf Or Do You Have Serious Difficulty Hearing? No Information not available 05/17/2016 What Type Of Diet Are You Following? VEGETARIAN Information not available 05/17/2016 Which Illicit Or Recreational Drugs Have You Used? None Information not available 05/17/2016 Swimming/diving Yes Informati on not available 05/17/2016 Hard Of Hearing Or Deaf In One Or Both Ears? Yes Information not available 05/17/2016 Legally Blind In One Or Both Eyes? No Information no t available 05/17/2016 Live Alone Or With Others? With Others Information not available 05/17/2016 What Was The Date Of Your Most Recent Tobacco Screening? 07/02/2024 [email or web address] Information not available 07/02/2024 How Many Children Do You Have? 0 Information not available 05/17/2016 Performs Monthly Self-breast Exam? Yes Information no t available 11/07/2016 Do You Use Protection During Sex? Always Information not available 11/07/2016 What Is Your Relationship Status? Information not available 05/17/2016 Seat Belts Used Routinely Yes Information not available 05/17/2016 Are You Sexually Active? Yes Information not available 11/07/2016 Smoke Alarm In Home Yes Information not available 05/17/2016 Are You Passively Exposed To Smoke? Yes Information no t available 05/17/2016 How Much Tobacco Do You Smoke? No Information not available 11/07/2016 General Stress Level Low Information not available 05/17/2016 Do You Use Sunscreen Routinely? Yes Information not available 11/07/2016 Has Tobacco Cessation Counseling Been Provided? No Information not available 11/07/2016 Do You Have Difficulty Walking Or Climbing Stairs? Yes Information not available 05/17/2016 Sex: Female Functional Status Question Answer Note LastModified by Organizat ion Details LastModified Time What is your level of alcohol consumption? None Information not available 05/17/2016 Do you or have you ever used smokeless tobacco? Never used smokeless tobacco Information not available 06/11/2019 Are you currently employed? No Information not available 11/07/2016 Urinary incontinence assessment performed? Yes Information not available 11/07/2016 Are you able to walk? YESWOREST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
--- NOTE | 2024-09-10 10:28 | A.OFFVIS_ITS ---
[facility] Disclaimer: The information contained in this section may have been updated after the patient was seen, as this information can be updated by other users. Medical History HLD (hyperlipidemia) Dwarfism Scoliosis Surgical History History of right hip replacement Family History Other Unknown family medical history Social History Smoking Status: Unknown if ever smoked alcohol intake: never current occupational status: other Travel in the last 8 weeks?: None PM Subjective & Objective Subjective Subjective:: Patient is a pleasant 64-year-old female who presents today for follow-up. She rates her pain today a 7 out of 10. Patient does state she still is experiencing the same pain in both her legs that going from about her mid upper thigh down to mid calf. Patient states the pain is worse when she gets up and stands and frequently has to stop and take multiple breaks due to the worsening pain symptoms. Patient denies any new falls or injuries. At her last visit we had standing and pregabalin 25 mg at bedtime. She denies any side effects and states that it did seem to help her sleep however she really did not notice any improvement in the pain in her legs. Patient did end up having the EMG testing with Dr. Reid and states that she stated everything was in normal range. She does use Voltaren cream and states this will occasionally help on some of her low back pain as well as her leg symptoms. Patient is currently on diclofenac however feels like this does not do as well anymore. Her Scotty has been reviewed and is appropriate. Review of Systems: General: No recent weight changes, no fever, no sleep disturbances Respiratory: No cough, no shortness of air, no recurring pulmonary infections Cardiovascular/peripheral vascular: No chest pain, no palpitations, no edema, no shortness of breath Gastrointestinal: No new onset incontinence, normal bowel movements reported Genitourinary: No new onset incontinence Musculoskeletal: Bilateral leg pain Psychiatric: [Normal mood/affect] Neurological: [Denies weakness in extremities], [denies balance issues] Pain at rest (0-10 scale): 7 Objective Objective:: Physical Exam: General: Alert and oriented x3, no acute distress, pleasant and cooperative Lungs: Respirations even and unlabored, symmetrical chest expansion Eyes: PERRL Musculoskeletal: Flexion and extension of lumbar [spine] somewhat guarded sec ondary to pain, [antalgic gait noted] Neurological: Speech clear, no gross sensory deficit Has patient had previous pain injection?: No Conservative treatment options previously tried: Home exercise plan Length of treatment: Longer than 12 weeks Meds Home Medications and Allergies Home Medications ?Medication ?Instructions ?Recorded ?Confirmed ?Type atorvastatin 80 mg tablet 80 mg PO DAILY Cholesterol 0 06/26/24 08/26/24 History bupropion HCl 150 mg 24 hr tablet, 150 mg PO DAILY MOO D 06/26/24 08/26/24 History extended release diclofenac sodium 75 mg 75 mg PO DIRECTED Pain 08/26/24 History tablet,delayed release ropinirole 0.25 mg tablet 0.25 mg PO DAILY RESTLESS LE GS 06/26/24 08/26/24 History pregabalin 25 mg capsule 25 mg PO HS #14 caps 5 Rx New Prescriptions to Start Prescriptions: Allergies Allergy/AdvReac Type Severity Reaction Status Date / Time gabapentin AdvReac Nausea Verified 06/26/24 11:47 hydrocodone AdvReac Headache Verified 06/26/24 11:47 Assessment and Plan *Assessment and plan (1) Lumbar radiculopathy: Status: Acute Category: Medical Code(s): M54.16 - Radiculopathy, lumbar region Plan I did discuss with the patient that the pregabalin was at a very low starting dose and that I will send in a month supply at 50 mg at bedtime. Patient was also counseled that we can discontinue the diclofenac and try meloxicam 15 mg daily. Patient denied any heart or kidney issues. Patient was counseled to discontinue all other NSAIDs while taking this medication and to take it with food to minimize GI upset. Patient agrees with this plan of care. Patient denies any heart or kidney issues. Patient will return to clinic in 1 month for reevaluation of symptoms and plan of care. Patient has been instructed to contact the clinic with any concerns before the next appointment. Dr. Delgado has reviewed this note and agrees with this plan of care. This note was dictated using voice recognition software and make contain errors or omissions. All injections are used with Lidocaine, Bupivacaine and dexamethasone. Occasionally urine drug screen is needed to verify patient's compliance with our office pain contract. This is ordered based off specific treatments related to chronic pain with the potential to abuse certain medications.
[2024-09-10 11:36] VITALS: BP 105/70; PULSE 80; RESP 14; O2SAT 95; BMI 27.0
== END 2024-09-10 23:59 | disposition home or self-care (01) ==
PROVIDERS: PCP Nurse Practitioner Family; Visit Provider Nurse Practitioner Family
DX: M54.16 Radiculopathy, lumbar region (principal); Z79.899 Other long term (current) drug therapy; Z79.1 Long term (current) use of non-steroidal anti-inflammatories (NSAID)
CPT/HCPCS: 99212; G0463

== ENCOUNTER 2024-10-08 09:11 | Outpatient (POV) | payer MEDICARE, MEDICAID, SELFPAY ==
--- OUTSIDE RECORDS SUMMARY | 2024-10-08 09:18 | XMS_ITS | Data Portability ---
Author Organization [facility] ADMIN Address [address] [place] [address] Care Team Providers Care Prn Occupational Therapist Name Role Phone JOSSELINE CONTRERAS Primary Care Provider Assessment No assessment recorded. Plan of Treatment Reminders Order Date Submit Date Provider Last Modified By Organization Details Last Modified Time Details Appointments None recorded. Lab None recorded. Referral None recorded. Procedures None recorded. Surgeries None recorded. Imaging CT, wrist, w/o contrast 2022 023 [place] (Centralized Scheduling)[address] , [place], [address], 4 15:37:52 XR, wrist 2022 023 [email or web address] [facility], [address] [place] [address] [place], [address], 3 07:57:33 XR, finger(s) 2021 022 [email or web address] [facility], [address] [place] [address] [place], [address], 2 09:10:01 Medication Orders Medrol (Ed) 4 mg tablets in a dose pack [address] [facility] [place], [address], 3 13:14:37 tramadol 50 mg tablet [address] [facility] [place], [address], 3 13:15:21 Medrol (Ed) 4 mg tablets in a dose pack [address] [facility] [place], [address], 3 13:14:37 Patient TargetsNo targets recorded. Patient InstructionsNo instructions recorded. Reason for Referral None Reported. Results Created Date Observation Date Name Description Value Unit Range Abnormal Flag Note LastModifiedBy Organization Detail LastModifiedTime 03/09/20 22 XR, finge r(s) No observ ation record ed. acjeff Medina [address] [place], [address], 03/09/2022 08:32:04 11/29/19 23 XR, wrist No observ ation record ed. RONAK Medina [address] [place], [address], 11/28/2022 08:59:46 02/03/20 23 02/02/2023 - CT upper ext w/o cont RT [facility] Name: BJ HINTON [facility] Get[employer] Phys: [place] [address] : 1959 Age: 62 Sex: F Acct: [id number] Loc: G.CT PHONE #: [phone] Exam Date: 2022 Status : REG CLI FAX #: Rad# [id number] Unit# [id number] Admit Date: 2022 EXAMS: CPT CODE: [id number] [place] UPPER EXT W/[place] [id number] CLINIC AL INFORM ATION: Scapho id fractu [...] tively . Commun icatio n: Per this writte n report . This report is genera dana using voice recogn ition comput er softwa re. Inadve rtent errors may have occurr ed while dictat ing report . Common sense approa ch is apprec iated and do not hesita te to call for clarif icatio n when necess carmen. PAGE 1 Signed Report (JODY NUED) [facility] Name: BJ HINTON [employer] [facility] [employer] Phys: Charlie [place] [address] : 12/07/ 1960 Age: 62 Sex: F Acct: [id number] Loc: G.CT PHONE #: [phone] Exam Date: 2022 Status : REG CLI FAX #: Rad# [id number] Unit# [id number] Admit Date: 2022 EXAMS: CPT CODE: [id number] [place] UPPER EXT W/[place] [id number] Electr onical ly Signed by Wes Parker [...] SAM Consul ting Provid er: DANITA MANJARREZ [email or web address] [address] [place], [address], 02/05/2023 07:40:50 Result Notes None recorded. Problems Name Problem SNOMED Code Status Onset Date Resolution Date Notes Provider Name and Address Organization Details Recorded Time Sensorineur al hearing loss 68630876 Active 2021 Comfort Melissa [place], [place] - [facility] [place] [facility] [place] 2 15:01:54 Restless legs 28467577 Active 2021 Comfort Melissa [place] [facility] [place] [facility] [place] 2 15:01:54 Seasonal allergy 519425352 Active Comfort Melissa [place] [facility] [place] [facility] [place] 2 15:01:54 Scoliosis of lumbar spine 400194039 Active Comfort Melissa [place] [facility] [place] [facility] [place] 2 15:01:54 Osteoarthri tis 092823152 Active 2020 Comfort Melissa [place] [facility] [place] [facility] [place] 2 15:01:54 Lumbar radiculopat hy 570951876 Active 2021 Comfort Melissa [place] [facility] [place] [facility] [place] 2 15:01:54 M ni re's disease 03024781 Active 2017 Comfort Melissa [place] [facility] [place] [facility] [place] 2 15:01:54 Bilateral osteoarthri tis of knees 6901662201271 07 Active 2021 Comfort Melissa [place] [facility] [place] [facility] [place] 2 15:01:54 Pain of right hip joint 8756235481257 02 Active 2020 Comfort Melissa [place] [facility] [place] [facility] [place] 2 15:01:54 Major depressive disorder 783534768 Active 2021 Comfort Melissa [place] [facility] [place] 2 15:01:54 Nausea 034298638 Active 2021 Comfort Melissa [place] [facility] [place] 2 15:01:54 Hypercholes terolemia 93271650 Active Comfort Melissa [place] [facility] [place] 2 15:01:54 Pain in left lower limb 331638331 Active 2021 Comfort Melissa [place] [facility] [place] 2 15:01:54 Pain in both feet 5957533446452 9102 Active 2020 Comfort Melissa [place] [facility] [place] 2 15:01:54 Scoliosis deformity of spine 791783162 Active 2020 Comfort Melissa [place] [facility] [place] 2 15:01:54 Mixed hyperlipide shirlene 674885253 Active 2016 Comfort song, [place]ARIO Jaime [place] [facility] [place] 2 15:01:54 Pain in right lower limb 854846941 Active 2021 Comfort song[facility] [place] 2 15:01:54 Osteoarthri tis of knee 810002325 Active 2021 Comfort song, [place]RARIO Jaime [place] [facility] [place] 2 15:01:54 Pain of right knee joint 8302772003670 00 Active 2021 Comfort song, [place] Jaime [place] [facility] [place] 2 15:01:54 Problem Notes None recorded. Procedures Surgical History Date Name Laterality Status Provider Name and Address Organization Details Recorded Time bone graft of patella completed Unique Gee SAGRARIO Addison MELITON [facility] [place] 01/26/2022 08:38:43 operation on hip joint completed Unique Gee SAGRAROI Addison MELITON [facility] & [place] 01/26/2022 08:39:15 Imaging Results None recorded. Procedure [...] Updated DateTime 01/24/2023 129.54 cm Ro [facility] [place] 01/24/2023 10:21:40 Date Recorded Body height Body mass index (BMI) Body weight Heart rate Systolic And Diastolic Provider Name and Address Organization Details Last Updated DateTime 01/26/2022 129.54 cm 25.7 kg/m2 04318.28 g 74 /min 119/74 mm[Hg] Unique Nelsondelma ZABALA - NT [facility] & [place] 01/26/2022 08:34:35 Date Recorded Body height Provider Name an d Address Organization Details Last Updated DateTime 02/05/2023 129.[address] [facility] 02/05/2023 13:13:52 Social History Question Answer Notes LastModified by Organizat ion Details LastModified Time Tobacco Smoking Status Never Smoker SAGRARIO Pickett [facility] 01/26/2022 08:37:24 Do You Have An Advance [...] 08:37:09 Medical History Condition Response Arthritis Y Osteoporosis Y High Cholesterol Y Gynecological HistoryNo gynecological history recorded. Obstetrics History GPAL:G 0 P 0 0 0 0 Immunizations Vaccine Type Date Status Note Provider Nam e and Address Organization Details Recorded Time Influenza, split virus, quadrivalent, preservative 8 completed SAGRARIO Mtz [facility] & [place] 01/25/2022 15:02:05 COVID-19, mRNA, LNP-S, PF, 100 mcg/0.5mL dose or 50 mcg/0.25mL dose 1 completed Unique Gee SAGRARIO song [facility] & [place] 01/26/2022 08:34:46 COVID-19, mRNA, LNP-S, PF, 30 mcg/0.3 mL dose, diane-sucrose 2 completed Unique Gee duncan [place] Jaime [facility] & [place] 01/26/2022 08:34:46 COVID-19, mRNA, LNP-S, bivalent, PF, 50 mcg/0.5 mL or 25mcg/0.25 mL dose 2 completed Unique Gee duncan [place] Jaime [facility] & [place] 01/26/2022 08:34:46 COVID-19, mRNA, LNP-S, PF, 100 mcg/0.5mL dose or 50 mcg/0.25mL dose 1 completed Uniquearvind song, [place] - [facility] [place] [facility] [place] 01/26/2022 08:34:46 COVID-19, mRNA, LNP-S, PF, 100 mcg/0.5mL dose or 50 mcg/0.25mL dose 1 completed Unique Gerard duncan, [place] - [facility] & [place] 01/26/2022 08:34:46 Influenza, split virus, quadrivalent, preservative 2 completed Comfort Torres null, [place] - [facility] & [place] 02/05/2023 13:10:56 Past Encounters Encounter ID Performer Location Encounter Start Date Encounter Closed Date Diagnosis/Indication Diagnosis SNOMED-CT Code Diagnosis ICD10 Code Diagnosis Note [id number] ARNOLDO MAZARIEGOS [facility] [address] MUKHERJEE [address] [place] [address] 12/16/2021 11:22:53 12/16/2021 11:26:19 Sensorineural hearing loss 69457136 H90.41 [id number] Arcenio Scales MD [address] [address] 01/26/2022 08:19:55 01/26/2022 09:09:16 Osteoarthritis of right knee joint 5846881526 03419 M17.11 Scoliosis deformity of spine 554370643 M41.9 Mallet fin talya of right hand 9203317068 77988 M20.011 [id number] Arcenio Scales MD Elsie [address] [address] 03/09/2022 08:19:52 03/09/2022 08:54:15 Osteoarthritis of right knee joint 6286270384 97260 M17.11 send pain medication . Scoliosis deformity of spine 429379064 M41.9 [place] fin [place] of right hand 1941410946 05573 M20.011 [id number] ANGEL GUERRA DO [facility] [address] [place] [address] 11/28/2022 08:10:54 11/28/2022 09:12:44 Pain of right wrist 8308898075 15552 M25.531 Closed fra cture of scaphoid bone of wrist 36880933 S62.001K Arthritis of wrist 60665 71850 109 M13.839 [id number] DO JENNIFER KIM [facility] [address] [address] 01/24/2023 09:47:34 01/24/2023 10:42:58 Pain of right wrist 5562851713 91522 M25.531 Arthritis of wrist 73184 46505 109 M13.839 Closed fra cture of scaphoid bone of wrist 81522782 S62.001K [id number] DO JENNIFER KIM [address] [address] 02/05/2023 13:08:23 02/05/2023 13:39:38 Arthritis of wrist 2480099456 109 M13.839 Health Concerns Section Related Observation LastModified by Organization Detai ls LastModified Time None Recorded Concern Status LastModified by Organization Details LastModified Time None Recorded Advance Directives Directive N: Payers Insurance Date Sequence Insurance Name Policy Number Policy Maldonado Covered Member ID Maldonado Member ID Guarantor Name 10/27/2021 2 [place] [employer] - FFS/TRADITIO NAL Bj G Oziel [id number] Bj G Oziel 06/19/2024 1 [facility] (MEDICAID O) Bj G Oziel [id number] Bj G Oziel Notes Date Note Type [...] extra strength and diclofenac. Arcenio Scales MD [address] [place] [address],[address], [place], [address], [facility] - [facility] & [place] 01/27/2022 12:43:07 03/09/2022 text/html 62 y/o female [...] discuss hip replacement. [id number] CARLTON ESQUIVEL, FLORINDA [address] [place] [address],[address], [place], [address], [facility] & [place] 03/09/2022 08:53:13 11/28/2022 text/html 62 y/o female he re today for right wrist pain and swelling. NKI. Pain is with activity and after using it. Pain is about entire circumference of wrist. Pt wears a brace at times and that helps some but makes it to where she can't use hand much. Taking Tylenol for pain. [id number] ANGEL GUERRA DO [address] [place] [address],[address], [place], [address], [facility] [place] 11/28/2022 09:14:39 01/24/2023 text/html Patient here for follow up right wrist pain. States Gail helped for about a week. Pain has returned.[id number] ANGEL GUERRA, [address] [place] [address],[address], [place], [address], [facility] - [facility] [place] 01/26/2023 08:42:45 02/05/2023 text/html Pt is here for r t upper ext CT. She reports she continues to have pain in the wrist and hand. There is a visible lump on the dorsal part of hand/wrist. She reports she is taking diclofenac for pain-[id number] ANGEL GUERRA, [address] [place] [address],[address], [place], [address], [facility] [place] 02/05/2023 18:14:00 OBGyn Episode No OBEpisode recorded.
--- OUTSIDE RECORDS SUMMARY | 2024-10-08 09:18 | XMS_ITS | Continuity of Care Document ---
Author Organization [facility] Address [address] [place] [id number] Assessment Encounter Date Assessment Date Assessment LastModified by Organization Details LastModified Time 09/17/2024 09/17/2024 Established patient presented for follow up. Studies ordered as below. Discussed plan with [...] if pain persists greater than 8 weeks. [email or web address] Not available 09/20/2024 22:54:21 Plan of Treatment Reminders Order Date Submit Date Provider Last Modified By Organization Details Last Modified Time Details Appointments None recorde d. Lab lipid panel, serum 2024 025 R[facility], [address], [place], [place], [address], 5 04:10:22 CMP, serum or plasma 2024 025 RONAK [facility], [address], [place] [address], [place], [address], 5 04:10:21 HbA1c (hemogl obin A1c), blood 2024 025 RONAK [facility], [address], [place] [address], [place], [address], 5 04:10:23 CBC w/ auto diff 2024 025 [facility], [address], [place] [address], [place], [address], 5 04:10:20 Referral spine center referra l 2024 025 [facility], [address] [place] [address], [address], 10:35:27 Procedures None recorde d. Surgeries None recorde d. Imaging None recorde d. Medication Orders ropinir ole 0.25 mg tablet 2024 025 [facility], [address] [place], [address], 12:10:51 Patient TargetsNo targets recorded. 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 Cassidy Contreras MD [address], [place], [address], [place] [facility] 8 11:28:44 Scoliosi s deformit y of spine 766374773 Active 2020 Cassidy Contreras MD [address], [place], [address], [place] [facility] 2 09:08:45 Osteoart hritis 610007403 Active 2020 Cassidy Contreras MD [address], [place], [address], [place] [facility] 2 09:08:45 Pain of right hip joint 30074500446 9102 Active 2020 Cassidy Contreras MD [address], [place], [address], [place] [facility] 2 09:08:45 Pain in both feet 30365220214 166118 Active 2020 Cassidy Contreras MD [address], [place], [address], [place] [facility] 2 09:08:45 Osteoart hritis of knee 571787133 Active 2021 Cassidy Contreras MD [address], [place], [address], [place] [facility] 2 09:08:45 Major depressi ve disorder 129844600 Active 2021 Cassidy Contreras MD [address], [place], [address], [place] [facility] 2 09:08:45 Nausea 161307091 Active 2021 Cassidy Contreras MD [address], [place], [address], [place] [facility] 2 09:08:45 Bilatera l osteoart hritis of knees 09932092435 9107 Active 2021 Cassidy Contreras MD [address], [place], [address], [place] [facility] 2 09:34:40 Restless legs 21674076 Active 2021 Cassidy Contreras MD [address], [place], [address], [place] [facility] 2 09:34:56 Lumbar radiculo amando 700257791 Active 2021 Cassidy Contreras MD [address], [place], [address], [place] [facility] 2 10:19:43 Pain of right knee joint 47349424249 4100 Active 2021 Cassidy Contreras MD [address], [place], [address], [place] [facility] 2 10:22:17 Pain in right lower limb 737044948 Active 2021 Cassidy Contreras MD [address], [place], [address], [place] [facility] 2 15:45:53 Pain in left lower limb 661489557 Active 2021 Cassidy Contreras MD [address], [place], [address], [place] [facility] 2 15:45:55 Arthriti s of first carpomet acarpal joint of right hand 78691013007 42371 Active 2022 Cassidy Contreras MD [address], [place], [address], [place] [facility] 3 12:52:29 Fatigue 26937105 Active 2023 Rafia Boyle [employer] [address], [place], [address], [place] [facility] 4 10:47:53 Divertic ulosis of colon 512865478 Active 2023 colonosc opy 11/2021 Meghan Santos, [employer] [address], [place], [address], [place] [facility] 4 12:04:36 Internal hemorrho ids 57988573 Active 2023 seen on colonosc opy report 12/15 Meghan Santos, [employer] [address], [place], [address], [place] [facility] 4 12:04:49 Diet educatio n Active 2023 Meghan Santos, [employer] [address], [place], [address], [place] [facility] 4 12:15:41 Body mass index 25-29 - overweig ht 226715518 Active 2023 Meghan Santos, [employer] [address], [place], [address], [place] [facility] 4 12:17:42 Overweig ht 438388304 Active 2023 Meghan Santos, [employer] [address], [place], [address], [place] [facility] 4 12:17:43 Dyspareu donnell 72410597 Active 2023 Meghan Santos, [employer] [address], [place], [address], [place] [facility] 4 12:18:21 Hypercho lesterol emia 12304082 Completed 07/27/2016 Cassidy Contreras MD [address], [place], [address], [place] [facility] 7 10:13:08 Seasonal allergy 010895334 Active Cassidy Contreras MD [address], [place], [address], [place] [facility] 2 09:08:45 Scoliosi s of lumbar spine 276505914 Active Cassidy Contreras MD [address], [place] , [place], [address], [place] [facility] 2 09:08:45 Type 2 diabetes mellitus 72081497 Active 2023 Rafia Boyle APRN [address], [place] , [place], [address], [place] [facility] 5 14:19:59 Thoracog enic scoliosi s of thoracic spine Active 2024 Rafia Boyle APRN [address], [place], [address], [place] [facility] 5 12:12:43 Mixed hyperlip idemia 444818828 Active 2016 Cassidy Contreras MD [address], [place], [address], [place] [facility] 2 09:08:45 Problem Notes None recorded. Procedures Surgical History Date Name Laterality Status Provider Name and Address Organization Details Recorded Time 03/07/20 Advance Care Planning completed Rafia Boyle APRN [address], [place], [address], [place] [facility] 03/09/2024 22:05:34 03/07/20 24 Functional Status Assessed completed Rafia Boyle APRN [address], [place], [address], [place] - [facility] 03/09/2024 22:05:34 12/18/19 24 Hip Replacement completed Norma Bush [place] - [facility] 03/07/2024 11:04:22 10/11/19 24 Date of Last Pap Smear completed Meghan Santos, [employer] [address], [place], [address], [place] [facility] 10/18/2023 11:08:00 05/21/19 24 procedure on wrist completed Dre Clements [place] - [facility] 10/11/2023 16:36:45 06/23/19 23 Cryosurgery Dermatology completed Mikaela Saucedo, [employer] [address], [place], [address], [place] - [facility] 06/22/2022 14:56:41 12/06/19 22 Date of Last Colonoscopy completed Meghan Santos, [employer] [address], [place], [address], [place] - [facility] 10/12/2023 12:03:47 12/25/19 21 Date of Last Mammogram completed Kaitlin Anthony RN [address], [place], [address], [place] - [facility] 02/25/2021 16:21:24 04/27/19 21 [...] Not Available Not Available No t Available diclofena c 3 % topical gel 08/13 [...] Available Not Available meloxicam 15 mg tablet TAKE 1 TABLET BY MOUTH ONCE DAILY active Not Available Not Available No t Available famotidin e 40 mg tablet TAKE [...] Disconti nued on: 10/29/19 13 12:58PM; User: cassandra; Est. Completi on: 06/09/19 13;Print ed: 05/25/19 13 Not Available Not Available Not Available ropinirol e 0.25 mg tablet Take 1 tablet 3 times a day by oral route as needed. 2024 active Not Available Not Available Not Avai lable promethaz ine 25 mg tablet take 1 tablet (25 mg) by oral route every 6 hours as needed for 7 days 05/17 completed prometha zine 25 mg oral tablet;P rescribe Status: Prescrib ed on: 01/14/20 15 10:52AM; Disconti nued Status: Disconti nued on: 05/17/19 16 10:32AM; User: [email or web address]; Est. Completi on: 01/21/20 15;Pharm acyVerif ied: 01/14/20 15 10:52AM Not Available Not Available Not Available hydrochlo rothiazid e 12.5 mg capsule 10/15 completed Not Available Not Available Not Available omeprazol e 20 mg capsule,d elayed release 03/07 completed Not Available Not Available Not Available diclofena c sodium 75 mg tablet,de layed release TAKE 1 TABLET BY MOUTH TWICE DAILY WITH MEALS NEEDED 09/17 completed Not Available Not Available Not Available monteluka st 10 mg tablet take 1 tablet (10 mg) by oral route once daily in the evening for 30 days 10/15 completed monteluk ast 10 mg oral tablet;P rescribe Status: Prescrib ed on: 06/09/19 16 4:13PM;U ser: [email or web address]; Est. Completi on: 09/07/19 16;Pharm acyVerif ied: [...] Not Available Not Available No t Available pregabali n 25 mg capsule TAKE 1 CAPSULE BY MOUTH AT BEDTIME NIGHTLY 09/17 completed Not Available Not Available Not Available pregabali n 50 mg capsule TAKE 1 CAPSULE BY MOUTH AT BEDTIME NIGHTLY active Not Available Not Available No t [...] Disconti nued on: 10/29/19 13 12:58PM; User: cassandra; Printed: 05/19/19 12 Not Available Not Available [...] height Body mass index (BMI) Body weight Respiratory rate Heart rate Oxygen saturation Oxygen saturation in Arterial blood by Pulse oximetry Systolic And Diastolic Provider Name and Address Organization Details Last Updated DateTime 5 129.54 cm 27.9 kg/m2 56511.7 6 g 18 /min 76 /min 97 % 97 % 112/74 mm[Hg] Norma Bethea in [facility] 5 11:57:55 Social History Question Answer Notes LastModified by Organizat ion Details LastModified Time Tobacco Smoking Status Never Smoker Makedalorene song, [facility] 05/17/2016 09:34:32 Able To Swim? Yes Information [...] colitis N Cerebrovascular Disease N Depression N Guillain-Onekama N Sleep Apnea N Aneurysm N Bronchitis [...] e and Address Organization Details Recorded Time zoster recombinant 5 completed Not Available [facility] 09/17/2024 11:24:35 Influenza, split virus, quadrivalent, preservative 2 completed Beverly Bautista null, [place] - [facility] 02/02/2022 11:46:45 Influenza, split virus, quadrivalent, preservative 3 completed Carrie Stears null, [place] - [facility] 02/06/2023 10:10:38 COVID-19, mRNA, LNP-S, PF, diane-sucrose, 30 mcg/0.3 mL 3 completed Carrie Stears null, [place] - [facility] 02/06/2023 10:10:38 COVID-19, mRNA, LNP-S, PF, 30 mcg/0.3 mL dose, diane-sucrose 2 completed Beverly Bautista null, [facility] 02/02/2022 11:44:21 COVID-19, mRNA, LNP-S, PF, 100 mcg/0.5mL dose or 50 mcg/0.25mL dose 1 completed Beverly Bautista null, [facility] 02/02/2022 11:44:21 COVID-19, mRNA, LNP-S, bivalent, PF, 50 mcg/0.5 mL or 25mcg/0.25 mL dose 2 completed Beverly Bautista null, [facility] 02/02/2022 11:44:21 COVID-19, mRNA, LNP-S, PF, 100 mcg/0.5mL dose or 50 mcg/0.25mL dose 1 completed Beverly Bautista null, [place] - [facility] 02/02/2022 11:44:21 COVID-19, mRNA, LNP-S, PF, 100 mcg/0.5mL dose or 50 mcg/0.25mL dose 1 completed Beverly Bautista null, [facility] 02/02/2022 11:44:21 Influenza, split virus, quadrivalent, preservative 8 completed Beverly Bautista null, [place] - [facility] 02/02/2022 11:44:21 Past Encounters Encounter ID Performer Location Encounter Start Date Encounter Closed Date Diagnosis/Indication Diagnosis SNOMED-CT Code Diagnosis ICD10 Code Diagnosis Note [id number] Jessie Hamilton, MS, RDN, LDN [place] [employer] [address] [place] [address] [place] [address] 09/15/2024 11:26:33 09/15/2024 12:14:58 Prediabetes 730593068 R73.03 [id number] Rafia Boyle APRN [address] [place] [address] 09/17/2024 11:24:05 09/17/2024 12:26:47 Mixed hyperlipidemia 698602208 E78.2 Type 2 silvia betes mellitus 69833339 E11.9 Restless legs 09399624 G 25.81 Thoracogen ic scoliosis of thoracic spine 3500528371 72977 M41.34 Health Concerns Section Related Observation LastModified by Organization Detai ls LastModified Time None Recorded Concern Status LastModified by Organization Details LastModified Time None Recorded Payers Encounter Date Sequence Insurance Name Policy Number Policy Maldonado Covered Member ID Maldonado Member ID Guarantor Name 09/17/2024 1 [employer] (MEDICARE REPLACEMENT/A DVANTAGE - PPO) Lucio Powell Oz[place] [id number] Lucio Sherry [place] Notes Date Note Type Note Provider Name and Address Organization Details Recorded Time 09/17/2024 text/html Lucio is a 64 yof who presents to the clinic today for Fasting labs. She has seen the dietitian and is hopeful to begin eating better-she has made some changes but does feel this will improve with additional support. patient as been seeing pain management in [place]-she reports continued pain to her back-she would like a referral to a spine center. Rafia Boyle APRN [address], [place], [address], [place] - [facility] 09/20/2024 22:54:25 OBGyn Episode No OBEpisode recorded.
--- OUTSIDE RECORDS SUMMARY | 2024-10-08 09:18 | XMS_ITS | Clinical Summary ---
Author Organization [facility] Address [address] 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 Name Role Phone [place] Rafia Walsh APRN Primary Care Provider [phone] Allergies Active Allergy Reactions Criticality Noted Date [...] ni re's disease 09/14/2017 Mixed hyperlipidemia 07/27/2016 Family History Medical History Relation Name Comments [...] Density Scan 1960 [facility]-Hepatitis C Screening 1960 [facility]Medicare Annual Wellness (AWV) 1960 [facility]-/Child/Adol SDOH Screenings [...] 2009 [facility]-Zoster Vaccines (1 of 2) 2009 [facility]-NRLTX-30 Vaccine ( season) 2023 02/06/2023, 12/14/2021, 06/30/2021, Additional history exists [facility]-Depression Screening 03/13/2024 03/13/2023 [facility]-Influenza Vaccine (#1) 11/24/202402/06, 02/02/2022, 02/20/2018 [facility]-RSV Vaccine: 60+ Years or [...] [employer] Implanted Type Area Rn Medicare Device Identifier Shelf Expiration Date Model / Serial / Lot G7 Acetabular System 46mm Shell Size, Liner Size B Uncemented 3 Hole Implanted:Qty: 1 on 12/18/2023 by Isaac Gage MD at [facility] Right: Hip [employer] 10/26/2032 [id number] / / [id number] Description:NONFILE- APPROVE D G7 Acetabular Liner 32mm Implanted:Qty: 1 on 12/18/2023 by Isaac Gage MD at [facility] Right: [employer] 06/05/2028 [id number] / / [id number] Description:NONFILE- APROVED Chg Femoral Hayse Cone 125 De - [id number] Implanted:Qty: 1 on 12/18/2023 by Isaac Gage MD at [facility] Right: Hip [employer]-[id number] 03/15/2027 [id number] / / [id number] Chg Head Biolox Delta Fem 32x-3.5mm - [id number] Implanted:Qty: 1 on 12/18/2023 by Isaac Gage MD at [facility] Right: Hip [employer]-[id number] 12/13/2032 [id number] / / [id number] Chg Screw Bone 6.5x20 Self-Tap - [id number] Implanted:Qty: 1 on 12/18/2023 by Isaac Gage MD at [facility] Right: Hip [employer]-[id number] 07/13/2030 [id number] / / [id number] Additional Health Concerns Active Problems Noted Date Diagnosed Date Autogenerated Problem 08/11/2024 Insurance [facility] MEDICAID [employer] MEDICAID [facility] MEDICARE Advance Directives * Full Code (Latest Code Status on File) Date Activated Date Inactivated Comments 12/18/2023 8:46 AM 12/20/2023 5:55 PM Question Answer Comments Patient has decision-making capacity? Yes Care Teams [place] Machine Operator Relationship Specialty Start Date End Date Rafia Boyle APRN [address] [place] [address] PCP - General 11/17/23
--- OUTSIDE RECORDS SUMMARY | 2024-10-08 09:18 | XMS_ITS | Continuity of Care Document ---
Author Organization [facility] [employer] Address [address] [place] [id number] Assessment No assessment recorded. Plan of Treatment Reminders Order Date Submit Date Provider Last Modified By Organization Details Last Modified Time Details Appointments None record ed. Lab None record ed. Referral None record ed. Procedures None record ed. Surgeries None record ed. Imaging None record ed. Medication Orders None record ed. Patient TargetsNo targets recorded. Patient InstructionsNo instructions recorded. Reason for Referral None Reported. Problems Name Problem SNOMED Code Status Onset Date Resolution Date Notes Provider Name and Address Organization Details Recorded Time M ni re's disease 85711308 Active 2017 Cassidy Contreras MD [address], [place], [address], [place] [facility] 8 11:28:44 Scoliosi s deformit y of spine 232678744 Active 2020 Cassidy Contreras MD [address], [place], [address], [place] [facility] 2 09:08:45 Osteoart hritis 715898325 Active 2020 Cassidy Contreras MD [address], [place], [address], [place] [facility] 2 09:08:45 Pain of right hip joint 19440715184 9102 Active 2020 Cassidy Contreras MD [address], [place], [address], [place] [facility] 2 09:08:45 Pain in both feet 18469838348 578438 Active 2020 Cassidy Contreras MD [address], [place], [address] [facility] 2 09:08:45 Osteoart hritis of knee 798916603 Active 2021 Cassidy Contreras MD [address], [place], [address] [facility] 2 09:08:45 Major depressi ve disorder 797722912 Active 2021 Cassidy Contreras MD [address], [place], [address] [facility] 2 09:08:45 Nausea 368998689 Active 2021 Cassidy Contreras MD [address], [place], [address] [facility] 2 09:08:45 Bilatera l osteoart hritis of knees 71411744907 9107 Active 2021 Cassidy Contreras MD [address], [place], [address] [facility] 2 09:34:40 Restless legs 35062722 Active 2021 Cassidy Contreras MD [address], [place], [address] [facility] 2 09:34:56 Lumbar radiculo amando 418563886 Active 2021 Cassidy Contreras MD [address], [place], [address] [facility] 2 10:19:43 Pain of right knee joint 55166809287 4100 Active 2021 Cassidy Contreras MD [address], [place], [address] [facility] 2 10:22:17 Pain in right lower limb 650324242 Active 2021 Cassidy Contreras MD [address], [place], [address] [facility] 2 15:45:53 Pain in left lower limb 364791815 Active 2021 Cassidy Contreras MD [address], [place], [address] [facility] 2 15:45:55 Arthriti s of first carpomet acarpal joint of right hand 41155549083 57038 Active 2022 Cassidy Contreras MD [address], [place], [address] [facility] 3 12:52:29 Fatigue 31823746 Active 2023 Rafia Boyle, [employer] [address], [place], [address] [facility] 4 10:47:53 Divertic ulosis of colon 352902947 Active 2023 colonosc opy 11/2021 Meghan Santos, [employer] [address], [place], [address] [facility] 4 12:04:36 Internal hemorrho ids 03347160 Active 2023 seen on colonosc opy report 12/15 Meghan Tom, EJ [address], [place], [address], [place] [facility] 4 12:04:49 Diet educatio n Active 2023 Meghan Tom, [employer] [address], [place], [address] [facility] 4 12:15:41 Body mass index 25-29 - overweig ht 649614598 Active 2023 Meghan EJ Santos [address], [place], [address], [place] [facility] 4 12:17:42 Overweig ht 976418793 Active 2023 Meghan Tom [employer] [address], [place], [address], [place] [facility] 4 12:17:43 Dyspareu donnell 97586891 Active 2023 Meghangage Santos APRN [address], [place], [address], [place] [facility] 4 12:18:21 Hypercho lesterol emia 23822856 Completed 07/27/2016 Cassidy Contreras MD [address], [place], [address], [place] [facility] 7 10:13:08 Seasonal allergy 824862509 Active Cassidy Contreras MD [address], [place], [address], [place] [facility] 2 09:08:45 Scoliosi s of lumbar spine 697086859 Active Cassidy Contreras MD [address], [place], [address], [place] [facility] 2 09:08:45 Type 2 diabetes mellitus 54763294 Active 2023 Rafia Boyle APRN [address], [place], [address], [place] [facility] 5 14:19:59 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 Procedures Surgical History Date Name Laterality Status Provider Name and Address Organization Details Recorded Time 03/07/20 Advance Care Planning completed Rafia Boyle APRN [address], [place], [address], [place] - [facility] 03/09/2024 22:05:34 03/07/20 24 Functional Status Assessed completed Rafia Boyle APRN [address], [place], [address], [place] - [facility] 03/09/2024 22:05:34 12/18/19 24 Hip Replacement completed Norma Bush [place] - [facility] 03/07/2024 11:04:22 10/11/19 24 Date of Last Pap Smear completed Meghan Santos APRN [address], [place], [address], [place] [facility] 10/18/2023 11:08:00 05/21/19 24 procedure on wrist completed Dre Clements [place] - [facility] 10/11/2023 16:36:45 06/23/19 23 Cryosurgery Dermatology completed Mikaela Saucedo APRN [address], [place], [address], [place] [facility] 06/22/2022 14:56:41 12/06/19 22 Date of Last Colonoscopy completed Meghan Santos APRN [address], [place], [address], [place] [facility] 10/12/2023 12:03:47 12/25/19 21 Date of Last Mammogram completed Kaitlin Anthony RN [address], [place], [address], [place] [facility] 02/25/2021 16:21:24 04/27/19 21 [...] Prescrib ed on: 02/11/20 15 10:24AM; User: [email or web address]; Est. Completi on: 03/12/20 15;Pharm acyVerif ied: [...] on: 10/29/19 13 12:58PM; User: [email or web address] Est. Completmarkell on: 06/09/19 13;Print ed: 05/25/19 13 Not [...] Disconti nued on: 05/17/19 16 10:32AM; User: [email or web address] Est. Completi on: 01/21/20 15;Pharm acyVerif ied: [...] tablet;P rescribe Status: Prescrib ed on: 06/09/19 4:13PM;U ser: [email or web address]; Est. Completi on: 09/07/19 16;Pharm acyVerif ied: 06/09/19 4:13PM Not Available Not Available Not Available [...] Not Available Not Available Not Available Vitals None Recorded Social History Question Answer Notes LastModified by Organizat ion Details LastModified Time Tobacco Smoking Status Never Smoker Makeda Barbosa null, [place] [facility] 05/17/2016 09:34:32 Able To Swim? Yes Information [...] colitis N Cerebrovascular Disease N Depression N Guillain-Middleton N Sleep Apnea N Aneurysm N Bronchitis [...] quadrivalent, preservative 2 completed Beverly Bautista [place], [place] [facility] 02/02/2022 11:46:45 Influenza, split virus, quadrivalent, preservative 3 completed Carrie Stears [place], [place] [facility] 02/06/2023 10:10:38 COVID-19, mRNA, LNP-S, PF, diane-sucrose, 30 mcg/0.3 mL 3 completed Carrie Stears null, [place] [facility] 02/06/2023 10:10:38 COVID-19, mRNA, LNP-S, PF, 30 mcg/0.3 mL dose, diane-sucrose 2 completed Beverly Bautista [place], [place] - [facility] 02/02/2022 11:44:21 COVID-19, mRNA, LNP-S, PF, 100 mcg/0.5mL dose or 50 mcg/0.25mL dose 1 completed Beverly Bautista [place], [place] - [facility] 02/02/2022 11:44:21 COVID-19, mRNA, LNP-S, bivalent, PF, 50 mcg/0.5 mL or 25mcg/0.25 mL dose 2 completed Beverly Bautista null, [place] - [facility] 02/02/2022 11:44:21 COVID-19, mRNA, LNP-S, PF, 100 mcg/0.5mL dose or 50 mcg/0.25mL dose 1 completed Beverly Bautista [place], [place] - [facility] 02/02/2022 11:44:21 COVID-19, mRNA, LNP-S, PF, 100 mcg/0.5mL dose or 50 mcg/0.25mL dose 1 completed Beverly Bautista [place], [facility] 02/02/2022 11:44:21 Influenza, split virus, quadrivalent, preservative 8 completed Beverly Bautista [place], [place] - [facility] 02/02/2022 11:44:21 Past Encounters Encounter ID Performer Location Encounter Start Date Encounter Closed Date Diagnosis/Indication Diagnosis SNOMED-CT Code Diagnosis ICD10 Code Diagnosis Note [id number] Jessie Hamilton MS, RDN, LDN Heidi [employer]OR [address] [facility] [place] [address] 09/15/2024 11:26:33 09/15/2024 12:14:58 Prediabetes 960063549 R73.03 Health Concerns Section Related Observation LastModified by Organization Detai ls LastModified Time None Recorded Concern Status LastModified by Organization Details LastModified Time None Recorded Payers Encounter Date Sequence Insurance Name Policy Number Policy Maldonado Covered Member ID Maldonado Member ID Guarantor Name 09/15/2024 1 [employer] (MEDICARE REPLACEMENT/A DVANTAGE - PPO) Lucio A Oziel [id number] Lucio A Oziel Notes Date Note Type Note Provider Name and Address Organization Details Recorded Time 5 text/htm l Initial Nutrition assessment for:T2DM w/o complicationsPatient was referred by:Ivana Blanchard history: Medical History:prediabetes, mixed hyperlipidemia, major depression, overweight, Meniere's disease, diverticular disease, bilateral OA of the knees, scoliosis, fatigueMedications:Trulicity - patient is not taking and was unaware of it being orderedFamily History:heart disease, hypercholesterolemia, CAPersonal History Social History: Employment:noSmoking Status:nonDiet RecallShe states that she tends to graze a lot, doesn't like to cook muchBreakfast:100 calorie breakfast barSnack: Lunch:doesn't always eat lunchSnack:smart pop corn/candy bars/fruitDinner:hot dogs and beans -veggie hot dogsuddenly saladspaghetti with veggie meatballstacosSnack:same, occasional ice creamBeverages:Coffee-cream and steviachocolate milk-tries to limit to 1 glass/dayno sodasparkling water x 2 or water w/sugar free packets a few times/dayhot tea w/stevia, doesn't drink it very oftenNotes and/or Diet History:Follows a mostly vegetarian diet- will eat fish, eggs and dairy food.Physical Activity/Sleep:had a hip replacement in the last year and hasn't been as active sinceLabs:A1C 6.4, Chol 203, LDL 128Energy Needs:4'3 , 108#, BMI 29.[address] caloriesNutrition Diagnosis:[facility] Goals:To avoid DM and be at a healthier weightShort Term Goals:1) Use food list provided to choose foods you like and add any additional choices and return it to the [facility] office as discussedNutrition Prescription:DM My Plate/VegetarianIntervention #1: Modify distribution, type, amount of food and nutrients within a meal or at specified times ND1.2Follow diet prescriptionIntervention #2: Nutrition Education E1.1Discussed her current diet and reviewed DM My Plate- patient would like for me to make her a week worth of menu's to follow based on her food preferences. Also reviewed label reading.Intervention #3: Self monitoring C2.3 Monitoring and Evaluation:Food/Nutrient-rel ated history outcomes: Types of food/meals Labs:A1C < 6Anthropometric:weight lossHandouts provided:Glycemix index food [id number] of face to face time with patient.Patient to drop of food list so I can make her a weeks worth of menu's and then f/u. Jessie Hamilton MS, RDN, LDN [address], [place], [address], [place] [facility] 09/16/2024 16:28:38 OBGyn Episode No OBEpisode recorded.
--- OUTSIDE RECORDS SUMMARY | 2024-10-08 09:18 | XMS_ITS | Data Portability ---
Author Organization [facility] Address [address] [place] [address] Assessment Encounter Date Assessment Date Assessment LastModified by Organization Details LastModified Time 03/07/2024 03/07/2024 Patient presente d to office [...] also was advised to: followup with a clinical project coordinator for a colonoscopy have a dermatology skin screening have a mammogram. Labs will be sent to evaluate blood count, renal function lipids and vitamin D. Medicare Preventive Services Check List reviewed and printed for patient. Not available 03/09/2024 22:05:32 07/02/2024 07/02/2024 Risks, benefits, and alternatives of the medication have been discussed with the patient. She would like to move forward with a prescription of trulicity for DM and weight . [email or web address] Not available 07/02/2024 14:28:22 09/17/2024 09/17/2024 Established ab ent presented for follow up. Studies ordered as [...] if pain persists greater than 8 weeks. Not available 09/20/2024 22:54:21 Plan of Treatment Reminders Order Date Submit Date Provider Last Modified By Organization Details Last Modified Time Details Appointments None mireille wayne Lab lipid panel, serum 2024 025 RONAK [facility], [address], [place] [address], [place], [address], 5 04:10:22 CMP, serum or plasma 2024 025 RONAK [facility], [address], [place] [address], [place], [address], 5 04:10:21 HbA1c (hemogl obin A1c), blood 2024 025 RONAK [facility], [address], [place] [address], [place], [address], 5 04:10:23 CBC w/ auto diff 2024 025 RONAK [facility], [address], [place], [place], [address], 5 04:10:20 lipid panel, serum 2023 024 RONAK [facility], [address], [place], [place], [address], 4 04:10:58 CMP, serum or plasma 2023 024 RONAK [facility], [address], [place] [address], [place], [address], 4 04:10:57 CBC w/ auto diff 2023 024 RONAK [facility], [address], [place] [address], [place], [address], 4 04:10:56 HbA1c (hemogl obin A1c), blood 2023 024 RONAK [facility], [address], [place] [address], [place], [address], 4 04:10:59 TSH + free T4, serum 2023 024 RONAK [facility], [address], [place] [address], [place], [address], 4 04:10:55 cytolog y report, thin prep, smear or scrapin g, cervica l or vaginal 2023 024 RONAK [facility], [address], [place], [place], [address], 4 08:21:52 Referral spine center referra l 2024 025 [facility], [address] [place] [address], [address], 5 10:35:27 nutriti onist/d ietitia n referra l 2024 025 [email or web address] Jessie [facility], [address] [place] [address] , [place], [address], 5 14:26:58 Procedures None recorde d. Surgeries None recorde d. Imaging MAMMO, screeni ng, digital , bilater al 2023 024 [email or web address] [facility] (Centralized Scheduling), [facility] [place], [address], 5 08:53:47 DEXA, vertebr al fractur e assessm ent 2023 024 [email or web address] [facility] (Central[facility] Scheduling), [address] [place] [address] [place], [address], 5 09:01:10 Medication Orders ropinir ole 0.25 mg tablet 2024 025 [facility], [address] [place], [address], 5 12:10:51 Trulici ty 0.75 mg/0.5 mL subcuta neous pen injecto r 2024 025 [facility], [address] [place] [address], [place], [address], 5 14:25:45 ropinir ole 0.25 mg tablet 2023 024 [facility], [address] [place], [address], 4 22:16:24 Premari n 0.625 mg/gram vaginal cream 2023 024 [facility], [address] [place], [address], 4 17:07:53 Patient TargetsNo targets recorded. Patient Instructions Encounter Date Encounter Id Patient Instructions Last Modified By Organization Details Last Modified Time 10/11/2023 [id number] body mass index: care instructions Not available 10/12/2023 12:16:21 learning about healthy weight Not available 10/12/2023 12:16:21 -Discussed all lab work ordered today, pt consents to all. We will call abnormal test results in 7-10 days. Patient is advised that they will be notified of the availability of normal results from [facility] by phone call, text or email. Not available 10/12/2023 12:17:36 03/07/2024 [id number] advance directives: care instructions [email or web address] Not available 03/09/2024 22:16:16 learning about depression Not available 03/09/2024 22:16:16 preventing falls : care instructions [email or web address] Not available 03/09/2024 22:16:16 medicare preventive services guide [email or web address] Not available 03/09/2024 22:16:16 07/02/2024 [id number] learning about type 2 diabetes [email or web address] Not available 07/02/2024 14:25:43 type 2 diabetes: care instructions [email or web address] Not available 07/02/2024 14:25:43 learning about healthy weight [email or web address] Not available 07/02/2024 14:25:43 09/17/2024 [id number] learning about type 2 diabetes [email or web address] Not available 09/17/2024 12:10:44 type 2 diabetes: care instructions [email or web address] Not available 09/17/2024 12:10:44 Reason for Referral Director Of Learning/dietitian Refer ral for Type 2 diabetes mellitus Referring Physician: Rafia Boyle [facility], Encounter Date: 07/02/2024 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 Not Available [facility] ([facility]) [address] [facility], [place], [address], 10/16/2023 08:21:52 10/11/19 24 10/16/2023 IGP, APTIM A HPV, RFX 16/18 ,45 diagnosis: Commen t NEGAT HARJIT FOR INTRA EPITH ELIAL LESIO N OR JENNIFER MONAHAN . Not Available [facility] ([facility]) [address] [facility], [place], [address], 10/16/2023 08:21:52 10/11/19 24 10/16/2023 IGP, APTIM A HPV, RFX 16/18 ,45 specimen adequacy: Commen t Satis facto ry for evalu ation . No endoc ervic al compo nent is ident ified . Not Available [facility] ([facility]) [address] [place], [address], 10/16/2023 08:21:52 10/11/19 24 10/16/2023 IGP, APTIM A HPV, RFX 16/18 ,45 clinician provided ICD10: Tejas monteiro Z12.4 Not Available [facility] ([facility]) [address] [place], [address], 10/16/2023 08:21:52 10/11/19 24 10/16/2023 IGP, APTIM A HPV, RFX 16/18 ,45 performed by: Joyce Noriega (ASCP ) Not Available [facility] ([facility]) [address] [place], [address], 10/16/2023 08:21:52 10/11/19 24 10/16/2023 IGP, APTIM A HPV, RFX 16/18 ,45 . . Not Available [facility] ([facility]) [address] [place], [address], 10/16/2023 08:21:52 10/11/19 24 10/16/2023 IGP, APTIM [...] ts do occur . Not Available [facility] ([facility]) [address] [facility], [place], [address], 10/16/2023 08:21:52 10/11/19 24 10/16/2023 IGP, APTIM A HPV, RFX 16/18 ,45 test methodology: Tejas monteiro This liqui d based ThinP rep(R ) pap test was zamzam oglesby with the use of an image guide linnea yuen Not Available [facility] ([facility]) [address] [place], [address], 10/16/2023 08:21:52 10/11/19 24 10/16/2023 IGP, APTIM A HPV, RFX 16/18 ,45 HPV genotype reflex Commen t Crite rashard not met, HPV Genot ype not perfo rmed. Not Available [facility] ([facility]) [address] [place], [address], 10/16/2023 08:21:52 03/12/20 24 03/13/2024 TSH+F REE T4 TSH 3.360 uIU/m L 0.450- 4.500 normal Not Available [facility] ([facility]) [address] [place], [address], 03/13/2024 04:10:55 03/12/20 24 03/13/2024 TSH+F REE T4 T4,free(dire ct) 1.00 NG/dL 0.82-1 .77 normal Not Available [facility] ([facility]) [address] [place], [address], 03/13/2024 04:10:55 03/12/20 24 03/12/2024 CBC WITH DIFFE RENTI AL/PL ATELE T WBC 4.1 x10e3 /uL 3.4-10 .8 normal Not Available [facility] ([facility]) [address] [place], [address], 03/13/2024 04:10:56 03/12/20 24 03/12/2024 CBC WITH DIFFE RENTI AL/PL ATELE T RBC 3.69 x10e6 /uL 3.77-5 .28 below low normal Not Available [facility] ([facility]) [address] [facility], [place], [address], 03/13/2024 04:10:56 03/12/20 24 03/12/2024 CBC WITH DIFFE RENTI AL/PL ATELE T hemoglobin 11.1 g/dL 11.1-1 5.9 normal Not Available [facility] ([facility]) [address] [place], [address], 03/13/2024 04:10:56 03/12/20 24 03/12/2024 CBC WITH DIFFE RENTI AL/PL ATELE T hematocrit 34.9 % 34.0-4 6.6 normal Not Available [facility] ([facility]) [address] [facility], [place], [address], 03/13/2024 04:10:56 03/12/20 24 03/12/2024 CBC WITH DIFFE RENTI AL/PL ATELE T MCV 95 fL 79-97 normal Not Available [facility] ([facility]) [address] [place], [address], 03/13/2024 04:10:56 03/12/20 24 03/12/2024 CBC WITH DIFFE RENTI AL/PL ATELE T MCH 30.1 pg 26.6-3 3.0 normal Not Available [facility] ([facility]) [address] [place], [address], 03/13/2024 04:10:56 03/12/20 24 03/12/2024 CBC WITH DIFFE RENTI AL/PL ATELE T MCHC 31.8 g/dL 31.5-3 5.7 normal Not Available [facility] ([facility]) [address] [place], [address], 03/13/2024 04:10:56 03/12/20 24 03/12/2024 CBC WITH DIFFE RENTI AL/PL ATELE T RDW 14.8 % 11.7-1 5.4 Not Available [facility] ([facility]) [address] [facility], [place], [address], 03/13/2024 04:10:56 03/12/20 24 03/12/2024 CBC WITH DIFFE RENTI AL/PL ATELE T platelets 139 x10e3 /uL 150-45 0 below low normal Not Available [facility] ([facility]) [address] [facility], [place], [address], 03/13/2024 04:10:56 03/12/20 24 03/12/2024 CBC WITH DIFFE RENTI AL/PL ATELE T neutrophils 42 % not estab. normal Not Available [facility] ([facility]) [address] [facility], [place], [address], 03/13/2024 04:10:56 03/12/20 24 03/12/2024 CBC WITH DIFFE RENTI AL/PL ATELE T lymphs 34 % not estab. normal Not Available [facility] ([facility]) [address] [facility], [place], [address], 03/13/2024 04:10:56 03/12/20 24 03/12/2024 CBC WITH DIFFE RENTI AL/PL ATELE T monocytes 13 % not estab. normal Not Available [facility] ([facility]) [address] [facility], [place], [address], 03/13/2024 04:10:56 03/12/20 24 03/12/2024 CBC WITH DIFFE RENTI AL/PL ATELE T eos 9 % not estab. normal Not Available [facility] ([facility]) [address] [facility], [place], [address], 03/13/2024 04:10:56 03/12/20 24 03/12/2024 CBC WITH DIFFE RENTI AL/PL ATELE T basos 1 % not estab. normal Not Available [facility] ([facility]) [address] [facility], [place], [address], 03/13/2024 04:10:56 03/12/20 24 03/12/2024 CBC WITH DIFFE RENTI AL/PL ATELE T immature cells ADVANCED PRACTICE PSYCHIATRIC NURSE Not Available [facility] ([facility]) [address] [place], [address], 03/13/2024 04:10:56 03/12/20 24 03/12/2024 CBC WITH DIFFE RENTI AL/PL ATELE T neutrophils (absolute) 1.7 x10e3 /uL 1.4-7. 0 normal Not Available [facility] ([facility]) [address] [place], [address], 03/13/2024 04:10:56 03/12/20 24 03/12/2024 CBC WITH DIFFE RENTI AL/PL ATELE T lymphs (absolute) 1.4 x10e3 /uL 0.7-3. 1 normal Not Available [facility] ([facility]) [address] [place], [address], 03/13/2024 04:10:56 03/12/20 24 03/12/2024 CBC WITH DIFFE RENTI AL/PL ATELE T monocytes(ab solute) 0.6 x10e3 /uL 0.1-0. 9 normal Not Available [facility] ([facility]) [address] [place], [address], 03/13/2024 04:10:56 03/12/20 24 03/12/2024 CBC WITH DIFFE RENTI AL/PL ATELE T eos (absolute) 0.4 x10e3 /uL 0.0-0. 4 normal Not Available [facility] ([facility]) [address] [place], [address], 03/13/2024 04:10:56 03/12/20 24 03/12/2024 CBC WITH DIFFE RENTI AL/PL ATELE T baso (absolute) 0.0 x10e3 /uL 0.0-0. 2 normal Not Available [facility] ([facility]) [address] [facility], [place], [address], 03/13/2024 04:10:56 03/12/20 24 03/12/2024 CBC WITH DIFFE RENTI AL/PL ATELE T immature granulocytes 1 % not estab. Not Available [facility] ([facility]) [address] [facility], [place], [address], 03/13/2024 04:10:56 03/12/20 24 03/12/2024 CBC WITH DIFFE RENTI AL/PL ATELE T immature grans (abs) 0.0 x10e3 /uL 0.0-0. 1 Not Available [facility] ([facility]) [address] [facility], [place], [address], 03/13/2024 04:10:56 03/12/20 24 03/12/2024 CBC WITH DIFFE RENTI AL/PL ATELE T NRBC [employer]VANCED PRACTICE PSYCHIATRIC NURSE Not Available [facility] ([facility]) [address] [facility], [place], [address], 03/13/2024 04:10:56 03/12/20 24 03/12/2024 CBC WITH DIFFE RENTI AL/PL ATELE T hematology comments: ADVANCED PRACTICE PSYCHIATRIC NURSE Not Available [facility] ([facility]) [address] [facility], [place], [address], 03/13/2024 04:10:56 03/12/20 24 03/13/2024 COMP. METAB OLIC PANEL (14) glucose 91 mg/dL 70-99 normal Not Available [facility] ([facility]) [address] [facility], [place], [address], 03/13/2024 04:10:57 03/12/20 24 03/13/2024 COMP. METAB OLIC PANEL (14) BUN 10 mg/dL 8-27 normal Not Available [facility] ([facility]) [address] [facility], [place], [address], 03/13/2024 04:10:57 03/12/20 24 03/13/2024 COMP. METAB OLIC PANEL (14) creatinine 0.65 mg/dL 0.57-1 .00 normal Not Available [facility] ([facility]) [address] [facility], [place], [address], 03/13/2024 04:10:57 03/12/20 24 03/13/2024 COMP. METAB OLIC PANEL (14) eGFR 98 mL/mi n/1.7 3 >59 normal Not Available [facility] ([facility]) [address] [facility], [place], [address], 03/13/2024 04:10:57 03/12/20 24 03/13/2024 COMP. METAB OLIC PANEL (14) BUN/creatini ne ratio 15 12-28 normal Not Available [facility] ([facility]) [address] [facility], [place], [address], 03/13/2024 04:10:57 03/12/20 24 03/13/2024 COMP. METAB OLIC PANEL (14) sodium 139 mmol/ L 134-14 4 normal Not Available [facility] ([facility]) [address] [facility], [place], [address], 03/13/2024 04:10:57 03/12/20 24 03/13/2024 COMP. METAB OLIC PANEL (14) potassium 4.5 mmol/ L 3.5-5. 2 normal Not Available [facility] ([facility]) [address] [facility] [place], [address], 03/13/2024 04:10:57 03/12/20 24 03/13/2024 COMP. METAB OLIC PANEL (14) chloride 102 mmol/ L 96-106 normal Not Available [facility] ([facility]) [address] [facility], [place], [address], 03/13/2024 04:10:57 03/12/20 24 03/13/2024 COMP. METAB OLIC PANEL (14) carbon dioxide, total 25 mmol/ L 20-29 normal Not Available [facility] ([facility]) [address] [facility] [place], [address], 03/13/2024 04:10:57 03/12/20 24 03/13/2024 COMP. METAB OLIC PANEL (14) calcium 9.7 mg/dL 8.7-10 .3 normal Not Available [facility] ([facility]) [address] [facility] [place], [address], 03/13/2024 04:10:57 03/12/20 24 03/13/2024 COMP. METAB OLIC PANEL (14) protein, total 7.0 g/dL 6.0-8. 5 normal Not Available [facility] ([facility]) [address] [facility] [place], [address], 03/13/2024 04:10:57 03/12/20 24 03/13/2024 COMP. METAB OLIC PANEL (14) albumin 4.4 g/dL 3.9-4. 9 normal Not Available [facility] ([facility]) [address] [facility] [place], [address], 03/13/2024 04:10:57 03/12/20 24 03/13/2024 COMP. METAB OLIC PANEL (14) globulin, total 2.6 g/dL 1.5-4. 5 Not Available [facility] ([facility]) [address] [place], [address], 03/13/2024 04:10:57 03/12/20 24 03/13/2024 COMP. METAB OLIC PANEL (14) bilirubin, total 0.2 mg/dL 0.0-1. 2 normal Not Available [facility] ([facility]) [address] [facility] [place], [address], 03/13/2024 04:10:57 03/12/20 24 03/13/2024 COMP. METAB OLIC PANEL (14) alkaline phosphatase 84 IU/L 44-121 normal Not Available [facility] ([facility]) [address] [facility] [place], [address], 03/13/2024 04:10:57 03/12/20 24 03/13/2024 COMP. METAB OLIC PANEL (14) AST (SGOT) 21 IU/L 0-40 normal Not Available [facility] ([facility]) [address] [facility] [place], [address], 03/13/2024 04:10:57 03/12/20 24 03/13/2024 COMP. METAB OLIC PANEL (14) ALT (SGPT) 11 IU/L 0-32 normal Not Available [facility] ([facility]) [address] [facility], [place], [address], 03/13/2024 04:10:57 03/12/20 24 03/13/2024 LIPID PANEL cholesterol, total 203 mg/dL 100-19 9 above high normal Not Available [facility] ([facility]) [address] [facility] [place], [address], 03/13/2024 04:10:58 03/12/20 24 03/13/2024 LIPID PANEL triglyceride s 101 mg/dL 0-149 normal Not Available [facility] ([facility]) [address] [facility] [place], [address], 03/13/2024 04:10:58 03/12/20 24 03/13/2024 LIPID PANEL HDL cholesterol 57 mg/dL >39 normal Not Available [facility] ([facility]) [address] [facility] [place], [address], 03/13/2024 04:10:58 03/12/20 24 03/13/2024 LIPID PANEL VLDL cholesterol alanna 18 mg/dL 5-40 Not Available [facility] ([facility]) [address] [place], [address], 03/13/2024 04:10:58 03/12/20 24 03/13/2024 LIPID PANEL LDL chol calc ([facility]) 128 mg/dL 0-99 above high normal Not Available [facility] ([facility]) [address] [place], [address], 03/13/2024 04:10:58 03/12/20 24 03/13/2024 LIPID PANEL LDL calc comment: ADVANCED PRACTICE PSYCHIATRIC NURSE Not Available [facility] ([facility]) [address] [facility], [place], [address], 03/13/2024 04:10:58 03/12/20 24 03/13/2024 HEMOG LOBIN A1C hemoglobin A1C 6.4 % 4.8-5. 6 above high normal Predi abete s: 5.7 - 6.4 Diabe krystle: >6.4 Glyce yoan contr ol for adult s with diabe krystle: <7.0 Not Available [facility] ([facility]) [address] [place], [address], 03/13/2024 04:10:59 09/18/19 25 09/18/2024 CBC WITH DIFFE RENTI AL/PL ATELE T WBC 6.5 x10e3 /uL 3.4-10 .8 normal Not Available [facility] ([facility]) [address] [place], [address], 09/18/2024 04:10:20 09/18/19 25 09/18/2024 CBC WITH DIFFE RENTI AL/PL ATELE T RBC 3.73 x10e6 /uL 3.77-5 .28 below low normal Not Available [facility] ([facility]) [address] [place], [address], 09/18/2024 04:10:20 09/18/19 25 09/18/2024 CBC WITH DIFFE RENTI AL/PL ATELE T hemoglobin 11.2 g/dL 11.1-1 5.9 normal Not Available [facility] ([facility]) [address] [place], [address], 09/18/2024 04:10:20 09/18/1909/18/2024 CBC WITH DIFFE RENTI AL/PL ATELE T hematocrit 36.0 % 34.0-4 6.6 normal Not Available [facility] ([facility]) [address] [place], [address], 09/18/2024 04:10:20 09/18/1909/18/2024 CBC WITH DIFFE RENTI AL/PL ATELE T MCV 97 fL 79-97 normal Not Available [facility] ([facility]) [address] [place], [address], 09/18/2024 04:10:20 09/18/19 25 09/18/2024 CBC WITH DIFFE RENTI AL/PL ATELE T MCH 30.0 pg 26.6-3 3.0 normal Not Available [facility] ([facility]) [address] [place], [address], 09/18/2024 04:10:20 09/18/1909/18/2024 CBC WITH DIFFE RENTI AL/PL ATELE T MCHC 31.1 g/dL 31.5-3 5.7 below low normal Not Available [facility] ([facility]) [address] [place], [address], 09/18/2024 04:10:20 09/18/1909/18/2024 CBC WITH DIFFE RENTI AL/PL ATELE T RDW 16.1 % 11.7-1 5.4 above high normal Not Available [facility] ([facility]) [address] [place], [address], 09/18/2024 04:10:20 09/18/19 25 09/18/2024 CBC WITH DIFFE RENTI AL/PL ATELE T platelets 150 x10e3 /uL 150-45 0 normal Not Available [facility] ([facility]) [address] [facility] [place], [address], 09/18/2024 04:10:20 09/18/19 25 09/18/2024 CBC WITH DIFFE RENTI AL/PL ATELE T neutrophils 56 % not estab. normal Not Available [facility] ([facility]) [address] [facility], [place], [address], 09/18/2024 04:10:20 09/18/19 25 09/18/2024 CBC WITH DIFFE RENTI AL/PL ATELE T lymphs 29 % not estab. normal Not Available [facility] ([facility]) [address] [facility], [place], [address], 09/18/2024 04:10:20 09/18/19 25 09/18/2024 CBC WITH DIFFE RENTI AL/PL ATELE T monocytes 9 % not estab. normal Not Available [facility] ([facility]) [address] [facility], [place], [address], 09/18/2024 04:10:20 09/18/19 25 09/18/2024 CBC WITH DIFFE RENTI AL/PL ATELE T eos 5 % not estab. normal Not Available [facility] ([facility]) [address] [facility], [place], [address], 09/18/2024 04:10:20 09/18/1909/18/2024 CBC WITH DIFFE RENTI AL/PL ATELE T basos 1 % not estab. normal Not Available [facility] ([facility]) [address] [facility], [place], [address], 09/18/2024 04:10:20 09/18/1909/18/2024 CBC WITH DIFFE RENTI AL/PL ATELE T immature cells ADVANCED PRACTICE PSYCHIATRIC NURSE Not Available [facility] ([facility]) [address] [facility], [place], [address], 09/18/2024 04:10:20 09/18/19 25 09/18/2024 CBC WITH DIFFE RENTI AL/PL ATELE T neutrophils (absolute) 3.6 x10e3 /uL 1.4-7. 0 normal Not Available [facility] ([facility]) [address] [place], [address], 09/18/2024 04:10:20 09/18/19 25 09/18/2024 CBC WITH DIFFE RENTI AL/PL ATELE T lymphs (absolute) 1.9 x10e3 /uL 0.7-3. 1 normal Not Available [facility] ([facility]) [address] [place], [address], 09/18/2024 04:10:20 09/18/19 25 09/18/2024 CBC WITH DIFFE RENTI AL/PL ATELE T monocytes(ab solute) 0.6 x10e3 /uL 0.1-0. 9 normal Not Available [facility] ([facility]) [address] [place], [address], 09/18/2024 04:10:20 09/18/19 25 09/18/2024 CBC WITH DIFFE RENTI AL/PL ATELE T eos (absolute) 0.3 x10e3 /uL 0.0-0. 4 normal Not Available [facility] ([facility]) [address] [place], [address], 09/18/2024 04:10:20 09/18/1909/18/2024 CBC WITH DIFFE RENTI AL/PL ATELE T baso (absolute) 0.0 x10e3 /uL 0.0-0. 2 normal Not Available [facility] ([facility]) [address] [place], [address], 09/18/2024 04:10:20 09/18/19 25 09/18/2024 CBC WITH DIFFE RENTI AL/PL ATELE T immature granulocytes 0 % not estab. Not Available [facility] ([facility]) [address] [place], [address], 09/18/2024 04:10:20 09/18/19 25 09/18/2024 CBC WITH DIFFE RENTI AL/PL ATELE T immature grans (abs) 0.0 x10e3 /uL 0.0-0. 1 Not Available [facility] ([facility]) [address] [facility], [place], [address], 09/18/2024 04:10:20 09/18/19 25 09/18/2024 CBC WITH DIFFE RENTI AL/PL ATELE T NRBC ADVANCED PRACTICE PSYCHIATRIC NURSE Not Available [facility] ([facility]) [address] [facility], [place], [address], 09/18/2024 04:10:20 09/18/19 25 09/18/2024 CBC WITH DIFFE RENTI AL/PL ATELE T hematology comments: ADVANCED PRACTICE PSYCHIATRIC NURSE Not Available [facility] ([facility]) [address] [facility], [place], [address], 09/18/2024 04:10:20 09/18/19 25 09/18/2024 COMP. METAB OLIC PANEL (14) glucose 96 mg/dL 70-99 normal Not Available [facility] ([facility]) [address] [facility], [place], [address], 09/18/2024 04:10:21 09/18/19 25 09/18/2024 COMP. METAB OLIC PANEL (14) BUN 34 mg/dL 8-27 above high normal Not Available [facility] ([facility]) [address] [facility], [place], [address], 09/18/2024 04:10:21 09/18/1909/18/2024 COMP. METAB OLIC PANEL (14) creatinine 0.86 mg/dL 0.57-1 .00 normal Not Available [facility] ([facility]) [address] [place], [address], 09/18/2024 04:10:21 09/18/19 25 09/18/2024 COMP. METAB OLIC PANEL (14) eGFR 75 mL/mi n/1.7 3 >59 normal Not Available [facility] ([facility]) [address] [place], [address], 09/18/2024 04:10:21 09/18/19 25 09/18/2024 COMP. METAB OLIC PANEL (14) BUN/creatini ne ratio 40 12-28 above high normal Not Available [facility] ([facility]) [address] [place], [address], 09/18/2024 04:10:21 09/18/19 25 09/18/2024 COMP. METAB OLIC PANEL (14) sodium 138 mmol/ L 134-14 4 normal Not Available [facility] ([facility]) [address] [place], [address], 09/18/2024 04:10:21 09/18/19 25 09/18/2024 COMP. METAB OLIC PANEL (14) potassium 4.5 mmol/ L 3.5-5. 2 normal Not Available [facility] ([facility]) [address] [place], [address], 09/18/2024 04:10:21 09/18/19 25 09/18/2024 COMP. METAB OLIC PANEL (14) chloride 103 mmol/ L 96-106 normal Not Available [facility] ([facility]) [address] [place], [address], 09/18/2024 04:10:21 09/18/19 25 09/18/2024 COMP. METAB OLIC PANEL (14) carbon dioxide, total 19 mmol/ L 20-29 below low normal Not Available [facility] ([facility]) [address] [place], [address], 09/18/2024 04:10:21 09/18/19 25 09/18/2024 COMP. METAB OLIC PANEL (14) calcium 9.6 mg/dL 8.7-10 .3 normal Not Available [facility] ([facility]) [address] [facility] [place], [address], 09/18/2024 04:10:21 09/18/19 25 09/18/2024 COMP. METAB OLIC PANEL (14) protein, total 6.9 g/dL 6.0-8. 5 normal Not Available [facility] ([facility]) [address] [facility] [place], [address], 09/18/2024 04:10:21 09/18/19 25 09/18/2024 COMP. METAB OLIC PANEL (14) albumin 4.4 g/dL 3.9-4. 9 normal Not Available [facility] ([facility]) [address] [facility] [place], [address], 09/18/2024 04:10:21 09/18/19 25 09/18/2024 COMP. METAB OLIC PANEL (14) globulin, total 2.5 g/dL 1.5-4. 5 Not Available [facility] ([facility]) [address] [facility] [place], [address], 09/18/2024 04:10:21 09/18/19 25 09/18/2024 COMP. METAB OLIC PANEL (14) bilirubin, total 0.2 mg/dL 0.0-1. 2 normal Not Available [facility] ([facility]) [address] [facility] [place], [address], 09/18/2024 04:10:21 09/18/19 25 09/18/2024 COMP. METAB OLIC PANEL (14) alkaline phosphatase 94 IU/L 44-121 normal Not Available [facility] ([facility]) [address] [facility] [place], [address], 09/18/2024 04:10:21 09/18/19 25 09/18/2024 COMP. METAB OLIC PANEL (14) AST (SGOT) 26 IU/L 0-40 normal Not Available [facility] ([facility]) [address] [place], [address], 09/18/2024 04:10:21 09/18/19 25 09/18/2024 COMP. METAB OLIC PANEL (14) ALT (SGPT) 13 IU/L 0-32 normal Not Available [facility] ([facility]) [address] [place], [address], 09/18/2024 04:10:21 09/18/19 25 09/18/2024 LIPID PANEL cholesterol, total 179 mg/dL 100-19 9 normal Not Available [facility] ([facility]) [address] [place], [address], 09/18/2024 04:10:22 09/18/19 25 09/18/2024 LIPID PANEL triglyceride s 71 mg/dL 0-149 normal Not Available [facility] ([facility]) [address] [place], [address], 09/18/2024 04:10:22 09/18/1909/18/2024 LIPID PANEL HDL cholesterol 51 mg/dL >39 normal Not Available [facility] ([facility]) [address] [place], [address], 09/18/2024 04:10:22 09/18/1909/18/2024 LIPID PANEL VLDL cholesterol alanna 13 mg/dL 5-40 Not Available [facility] ([facility]) [address] [place], [address], 09/18/2024 04:10:22 09/18/19 25 09/18/2024 LIPID PANEL LDL chol calc ([facility]) 115 mg/dL 0-99 above high normal Not Available [facility] ([facility]) [address] [place], [address], 09/18/2024 04:10:22 09/18/1909/18/2024 LIPID PANEL LDL calc comment: [facility]SE Not Available [facility] ([facility]) [address] [facility], [place], [address], 09/18/2024 04:10:22 09/18/1909/18/2024 HEMOG LOBIN A1C hemoglobin A1C 6.2 % 4.8-5. 6 above high normal Predi abete s: 5.7 - 6.4 Diabe krystle: >6.4 Glyce yoan contr ol for adult s with diabe krystle: <7.0 Not Available [facility] ([facility]) [address] [facility], [place], [address], 09/18/2024 04:10:23 06/21/1912/24/2020 MAMMO , scree javier, digit al, bilat eral No observ ation record ed. [address] , [place], [address], 07/03/2024 10:11:20 06/26/1912/24/2020 MAMMO , scree javier, digit al, bilat eral No observ ation record ed. [address] , [place], [address], 07/03/2024 10:11:19 Result Notes None recorded. 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 Cassidy Contreras MD [address], [place], [address], [place] [facility] 8 11:28:44 Scoliosi s deformit y of spine 944874272 Active 2020 Cassidy Contreras MD [address], [place], [address] [facility] 2 09:08:45 Osteoart hritis 471519559 Active 2020 Cassidy Contreras MD [address], [place], [address] [facility] 2 09:08:45 Pain of right hip joint 17896591909 9102 Active 2020 Cassidy Contreras MD [address], [place], [address], [place] [facility] 2 09:08:45 Pain in both feet 55996969459 594571 Active 2020 Cassidy Contreras MD [address], [place], [address], [place] [facility] 2 09:08:45 Osteoart hritis of knee 430908729 Active 2021 Cassidy Contreras MD [address], [place], [address], [place] [facility] 2 09:08:45 Major depressi ve disorder 965534448 Active 2021 Cassidy Contreras MD [address], [place], [address], [place] [facility] 2 09:08:45 Nausea 715503995 Active 2021 Cassidy Contreras MD [address], [place], [address] [facility] 2 09:08:45 Bilatera l osteoart hritis of knees 00128545989 9107 Active 2021 Cassidy Contreras MD [address], [place], [address] [facility] 2 09:34:40 Restless legs 93256456 Active 2021 Cassidy Contreras MD [address], [place], [address], [place] [facility] 2 09:34:56 Lumbar radiculo amando 455564462 Active 2021 Cassidy Contreras MD [address], [place], [address], [place] [facility] 2 10:19:43 Pain of right knee joint 95838921180 4100 Active 2021 Cassidy Contreras MD [address], [place], [address], [place] [facility] 2 10:22:17 Pain in right lower limb 127101076 Active 2021 Cassidy Contreras MD [address], [place], [address], [place] [facility] 2 15:45:53 Pain in left lower limb 176794510 Active 2021 Cassidy Contreras MD [address], [place], [address], [place] [facility] 2 15:45:55 Arthriti s of first carpomet acarpal joint of right hand 03330753562 89456 Active 2022 Cassidy Contreras MD [address], [place], [address], [place] [facility] 3 12:52:29 Fatigue 78313565 Active 2023 Rafia Boyle APRN [address], [place], [address] [facility] 4 10:47:53 Divertic ulosis of colon 999770487 Active 2023 colonosc opy 11/2021 Meghan Santos APRN [address], [place] , [place], [address], [place] [facility] 4 12:04:36 Internal hemorrho ids 85607431 Active 2023 seen on colonosc opy report 12/15 Meghan Santos APRN [address], [place], [address], [place] [facility] 4 12:04:49 Diet educatio n Active 2023 Meghan Santos APRN [address], [place], [address], [place] [facility] 4 12:15:41 Body mass index 25-29 - overweig ht 786041139 Active 2023 Meghan Santos APRN [address], [place], [address], [place] [facility] 4 12:17:42 Overweig ht 516291598 Active 2023 Meghan Santos, INSOLVENCY PRACTITIONER [address], [place], [address], [place] [facility] 4 12:17:43 Dyspareu donnell 49816922 Active 2023 Meghan Santos, INSOLVENCY PRACTITIONER [address], [place], [address], [place] [facility] 4 12:18:21 Hypercho lesterol emia 45307312 Completed 07/27/2016 Cassidy Contreras MD [address], [place], [address], [place] [facility] 10:13:08 Seasonal allergy 737701252 Active Cassidy Contreras MD [address], [place], [address], [place] [facility] 2 09:08:45 Scoliosi s of lumbar spine 626048451 Active Cassidy Contreras MD [address], [place], [address], [place] [facility] 2 09:08:45 Type 2 diabetes mellitus 03851042 Active 2023 Rafia Boyle APRN [address], [place], [address], [place] [facility] 5 14:19:59 Thoracog enic scoliosi s of thoracic spine Active 2024 Rafia Boyle APRN [address], [place], [address], [place] [facility] 5 12:12:43 Mixed hyperlip idemia 891347441 Active 2016 Cassidy Contreras MD [address], [place], [address] [facility] 2 09:08:45 Problem Notes None recorded. Procedures Surgical History Date Name Laterality Status Provider Name and Address Organization Details Recorded Time 03/07/20 24 Advance Care Planning completed Rafia Boyle APRN [address], [place], [address], [place] [facility] 03/09/2024 22:05:34 03/07/20 24 Functional Status Assessed completed Rafia Boyle APRN [address], [place], [address], [place] [facility] 03/09/2024 22:05:34 12/18/19 24 Hip Replacement completed Norma Bush [place] [facility] 03/07/2024 11:04:22 10/11/19 24 Date of Last Pap Smear completed Meghan Santos, INSOLVENCY PRACTITIONER [address], [place], [address], [place] [facility] 10/18/2023 11:08:00 05/21/19 24 procedure on wrist completed Dre Clements [place] - [facility] 10/11/2023 16:36:45 06/23/19 23 Cryosurgery Dermatology completed Mikaela Saucedo, INSOLVENCY PRACTITIONER [address], [place], [address], [place] [facility] 06/22/2022 14:56:41 12/06/19 22 Date of Last Colonoscopy completed Meghan Santos, INSOLVENCY PRACTITIONER [address], [place], [address], [place] [facility] 10/12/2023 12:03:47 12/25/19 21 Date of Last Mammogram completed Kaitlin Anthony RN [address], [place], [address], [place] [facility] 02/25/2021 16:21:24 04/27/19 21 [...] Prescrib ed on: 02/11/20 15 10:24AM; User: [email or web address]; Est. Completi on: 03/12/20 15;Pharm [email or web address] ied: [...] Pulse oximetry Heart rate Respiratory rate Systolic And Diastolic Provider Name and Address Organization Details Last Updated DateTime 5 129.54 cm 29.2 kg/m2 44924.9 8 g 97 % 97 % 78 /min 18 /min 110/72 mm[Hg] Norma Riveraenste in [facility] 5 13:44:42 Date Recorded Body height Body mass index (BMI) Body weight Respiratory rate Heart rate Oxygen saturation Oxygen saturation in Arterial blood by Pulse oximetry Systolic And Diastolic Provider Name and Address Organization Details Last Updated DateTime 5 129.54 cm 27.9 kg/m2 49880.7 6 g 18 /min 76 /min 97 % 97 % 112/74 mm[Hg] Norma Riveraenste in [facility] 5 11:57:55 Date Recorded Body height Body mass index (BMI) Body weight Systolic And Diastolic Provider Name and Address Organization Details Last Updated DateTime 10/11/2023 129.54 cm 27.3 kg/m2 55946.83 g 108/60 mm[Hg] Dre Clements [facility] 10/11/2023 16:41:36 Date Recorded Body height Respiratory rate Oxygen saturation Oxygen saturation in Arterial blood by Pulse oximetry Heart rate Systolic And Diastolic Provider Name and Address Organization Details Last Updated DateTime 129.54 cm 18 /min 98 % 98 % 78 /min 112/64 mm[Hg] Norma Bethea in [facility] 11:06:00 Social History Question Answer Notes LastModified by Organizat ion Details LastModified Time Tobacco Smoking Status Never Smoker Makeda Familia song, [facility] 05/17/2016 09:34:32 Able To Swim? Yes Information [...] Diseases N Kidney Stones N Hyperthyroidism N Rheumatoid arthritis N Blood Transfusion N Erectile Dysfunction N amputation N Colonoscopy N Skin Lesions N COPD N Depression N Pneumonia N Incontinence N Murmur N Edema N Alzheimer's Disease N Migraine Headaches N Tobacco Abuse N Anxiety Disorder N Muscle, Joint, or Bone Problems N Hemorrhoids N Obesity N Vision or Eye Problems N Restless Leg Syndrome N Arthritis N Infertility N Polyps N Carpal Tunnel N Mental Disorder N Acid Reflux (GERD) N Cancer N Stroke N Varicosities N Tendonitis N Crohn's Disease N Hypercholesterolemia Y Skin Cancer N Fibromyalgia N Headaches N Anal Fissure N Irritable Bowel Syndrome [...] colitis N Cerebrovascular Disease N Depression N Guillain-Norton N Sleep Apnea N Aneurysm N Bronchitis [...] Time zoster recombinant 5 completed Not Available [facility] 09/17/2024 11:24:35 Influenza, split virus, quadrivalent, preservative [...] dose, diane-sucrose 2 completed Beverly Bautista [place], [place] - [facility] 02/02/2022 11:44:21 COVID-19, mRNA, LNP-S, PF, 100 mcg/0.5mL dose or 50 mcg/0.25mL dose 1 completed Beverly Bautista [place] [facility] 02/02/2022 11:44:21 COVID-19, mRNA, LNP-S, bivalent, PF, 50 mcg/0.5 mL or 25mcg/0.25 mL dose 2 completed Beverly Bautista dun[place] [facility] 02/02/2022 11:44:21 COVID-19, mRNA, LNP-S, PF, 100 mcg/0.5mL dose or 50 mcg/0.25mL dose 1 completed Beverly Bautista duncan [place] [facility] 02/02/2022 11:44:21 COVID-19, mRNA, LNP-S, PF, 100 mcg/0.5mL dose or 50 mcg/0.25mL dose 1 completed Beverly Bautista duncan [facility] 02/02/2022 11:44:21 Influenza, split virus, quadrivalent, preservative 8 completed Beverly song [facility] 02/02/2022 11:44:21 Past Encounters Encounter ID Performer Location Encounter Start Date Encounter Closed Date Diagnosis/Indication Diagnosis SNOMED-CT Code Diagnosis ICD10 Code Diagnosis Note [id number] Anna Griffith APRN [address] [place] [address] 05/17/2016 09:22:15 05/17/2016 09:53:06 Pain in right lower limb 694850398 M79.604 Insomnia 436134334 G47.0 0 [id number] Cassidy Contreras MD [address] [place] [address] 07/27/2016 09:41:32 07/27/2016 10:34:09 Mixed hyperlipidemia 419982269 E78.2 Scoliosis of lumbar spine 233232390 M41.87 Seasonal allergy 9793513 04 J30.2 [id number] Shawnee Riley MD [place] [employer] [address] [place] [address] [place] [address] 11/07/2016 13:41:32 11/07/2016 14:49:57 Seasonal allergy 171586368 J30.2 Gynecologi c examination 12230411 Z01.419 Screening mammography 24 816989 Z12.31 Body mass index 25-29 - overweight 763395997 Z68.27 Breast lump 32356081 N63 Mass of left breast 1224 445476 3476742 N63 [id number] Shawnee Riley MD [place] [employer] [address] [place] [address] [place] [address] 11/29/2016 10:18:12 11/29/2016 11:05:15 Pain in pelvis 42272837 R10.2 Menopausal symptom 10439 002 N95.1 [id number] Cassidy Contreras MD [address] [place] [address] 02/23/2017 10:56:07 02/23/2017 12:05:58 Mixed hyperlipidemia 847056329 E78.2 Asthma 330657170 J45.90 9 Renewal of prescription 305254539 Z76.0 Eustachian tube disorder 93814132 H69.93 Scoliosis deformity of spine 288646179 M41.9 [id number] Cassidy Contreras MD [address] [place] [address] 09/14/2017 11:18:31 09/14/2017 12:47:25 Major depressive disorder 445278772 F32.9 [id number] Cassidy Contreras MD [address] [place] [address] 10/15/2017 09:11:49 10/15/2017 09:51:28 Mixed hyperlipidemia 422561577 E78.2 Major depr essive disorder 899814514 F32.9 [id number] Cassidy Contreras MD [address] [place] [address] 02/20/2018 09:38:38 02/20/2018 10:47:51 Rib pain 435677154 R07.81 Administra tion of influenza vaccine 90710169 Z23 [id number] Cassidy Contreras MD [address] [place] [address] 04/29/2018 09:19:03 04/29/2018 10:22:38 Mixed hyperlipidemia 609145363 E78.2 Major depr essive disorder 283754144 F32.9 Screening for malignant neoplasm of colon 565642133 Z12.11 [id number] Cassidy Contreras MD [address] [place] [address] 09/20/2018 11:19:01 09/20/2018 11:57:01 Scoliosis of lumbar spine 048772623 M41.87 Body mass index 25-29 - overweight 563653830 Z68.27 Mixed hyperlipidemia 267 243869 E78.2 [id number] Cassidy Contreras MD [address] [place] [address] 04/16/2019 09:21:47 04/16/2019 10:33:37 Mixed hyperlipidemia 160225938 E78.2 Body mass index 30+ - obesity 782464275 Z68.30 Scoliosis of lumbar spine 862102010 M41.87 Lumbar radiculopathy 128 075652 M54.16 Lateral ep icondylitis of right humerus 0945922160 19850 M77.11 Closed fra cture thoracic vertebra, wedge 774008559 S22.009S T12, was present in 2009 [id number] Mikaela Saucedo APRN [address] [place] [address] 06/11/2019 14:01:59 06/11/2019 15:05:34 Solar lentigo 37141063 L81.4 offered reassuranc e - appears she has small scab in center likely due to trauma educated on continuing to monitor for change Raised jarad orrheic keratosis 6535632855 57764 L82.1 offered reassuranc e [id number] Cassidy Contreras MD [address] [place] [address] 04/27/2020 10:42:08 04/27/2020 11:56:20 Major depressive disorder 068755216 F32.9 Mixed hyperlipidemia 267 432721 E78.2 Vitamin D deficiency 347 92738 E55.9 [id number] Cassidy Contreras MD [address] [place] [address] 11/10/2020 09:20:37 11/10/2020 11:02:16 Mixed hyperlipidemia 748835365 E78.2 M ni re's disease 31741722 H81.01 Screening mammography 24 229127 Z12.31 Scoliosis deformity of spine 826638275 M41.9 Osteoarthritis 689886536 M19.90 Pain of ri ght hip joint 2489680794 20518 M25.263 [id number] Shawnee Riley MD [place] [employer] [address] [place] [address] [place] [address] 12/07/2020 13:32:29 12/07/2020 14:23:50 Routine gynecologic examination done 9190365843 9101 Z01.419 Depression screening 171 785980 Z13.89 Diet education 51614531 Z71.3 Counseling 377383745 Z71 .82 Exercise counselraffy henderson. Patient encouraged to exercise 30 minutes 5 days a week. Examinatio n of blood pressure 382762482 Z01.30 Atrophy of vagina 777423 009 N95.2 Screening for malignant neoplasm of cervix 741268290 Z12.4 Body mass index 25-29 - overweight 505880971 Z68.27 Pelvic mass 88235320 R19 .00 [id number] MD Heidi Varela [employer] [address] [place] [address] [place] [address] 12/17/2020 08:47:39 12/17/2020 09:42:45 Pelvic mass 86392202 R19.00 [id number] Cassidy Contreras MD [address] [place] [address] 05/11/2021 08:21:53 05/11/2021 09:34:53 Major depressive disorder 742742090 F32.9 Osteoarthr itis of knee 921870700 M17.9 Mixed hyperlipidemia 267 409900 E78.2 Nausea 034108563 R11.0 M ni re's disease 56715833 H81.01 Scoliosis deformity of spine 450253549 M41.9 Osteoarthritis 442638826 M19.90 Pain of ri ght hip joint 1527705699 40070 M25.551 Scoliosis of lumbar spine 841309587 M41.87 [id number] Cassidy Contreras MD [address] [place] [address] 08/03/2021 08:36:15 08/03/2021 09:33:49 Bilateral osteoarthritis of knees 8319990101 66725 M17.0 Nausea 810271632 R11.0 Restless legs 17735840 G 25.81 Screening for malignant neoplasm of colon 431195676 Z12.11 [id number] Cassidy Contreras MD [address] [place] [address] 12/20/2021 09:14:02 12/20/2021 10:26:53 Lumbar radiculopathy 765798061 M54.16 Pain of ri ght knee joint 0986229776 92803 M25.578 [id number] Azul Wolff [address] [address] 02/02/2022 11:15:13 02/02/2022 11:32:09 Influenza vaccine needed 4882208809 106 Z23 [id number] Mikaela Saucedo [facility] [address] [place] [address] 06/22/2022 14:27:47 06/22/2022 14:59:53 Senile hyperkeratosis 609424766 L82.1 cryo applied Actinic keratosis 637963 007 L57.0 cryo applied [id number] Cassidy Contreras MD [address] [place] [address] 10/17/2022 11:47:49 10/17/2022 13:05:28 Body mass index 25-29 - overweight 267755371 Z68.25 Overweight 921211798 E66 .3 Bilateral osteoarthritis of knees 6571630579 99626 M17.0 Osteoarthr itis of knee 308663247 M17.9 Pain of ri ght hip joint 8939249873 02142 M25.551 Pain in both feet 343372 1495 3050332 M79.671 Arthritis of first carpometacarpal joint of right hand 9493986369 977526 M13.841 Major depr essive disorder 270118507 F32.9 Injury of tendon of the rotator cuff of shoulder 491935514 S46.002A Mixed hyperlipidemia 267 086923 E78.2 [id number] Azul Wolff [facility] [address] [place] [address] 02/06/2023 09:01:32 02/06/2023 09:44:10 Influenza vaccine needed 9355969985 106 Z23 Administra tion of SARS-CoV-2 antigen vaccine 946054853 Z23 [id number] Rafia Boyle [address] [place] [address] 08/14/2023 09:15:07 08/14/2023 10:19:43 Mixed hyperlipidemia 234587930 E78.2 Major depr essive disorder 597673921 F32.9 Bilateral osteoarthritis of knees 3037186540 45159 M17.0 Restless legs 05609883 G 25.81 [id number] Rafia Boyle [address] [place] [address] 09/04/2023 10:14:20 09/04/2023 11:03:14 Body mass index 25-29 - overweight 103768957 Z68.27 Overweight 456728098 E66 .3 Major depr essive disorder 645413386 F32.9 Hyperlipid emia screening 502308383 Z13.220 Diabetes m ellitus screening 482223211 Z13.1 Thyroid di sorder screening 384507795 Z13.29 Anemia screening 0692484 07 Z13.0 Fatigue 11775517 R53.83 Restless legs 94221028 G 25.81 Screening for malignant neoplasm of breast 957213406 Z12.39 [id number] EJ [place] [employer] [address] [place] [address] [place] [address] 10/11/2023 16:18:00 10/11/2023 17:24:22 Routine gynecologic examination done 5030969899 9101 Z01.419 Depression screening 171 913327 Z13.31 PHQ-9 completed today. Diet education 91162398 Z71.3 Eat a well balanced diet, avoid large amounts fried/fatt y foods Counseling 060371637 Z71 .82 Exercise counselraffy henderson. Patient encouraged to exercise 30 minutes 5 days a week. Examinatio n of blood pressure 920084424 Z01.30 Vaccine de clined by patient 9104491432 02 Z28.21 Pt declined flu vaccine today. Screening for malignant neoplasm of breast 820379380 Z12.39 Screening for malignant neoplasm of cervix 822189521 Z12.4 Postmenopausal state 764 [address]8981 Z78.0 Dyspareunia 33346852 N94 .10 Body mass index 25-29 - overweight 476833805 Z68.27 Overweight 917769542 E66 .3 [id number] Rafia Boyle APRN [address] [place] [address] 03/07/2024 10:20:06 03/07/2024 11:33:51 Restless legs 45039736 G25.81 Mixed hyperlipidemia 267 415999 E78.2 Anemia screening 6090739 07 Z13.0 Adult heal th examination 336303237 Z00.00 Depression screening 171 209867 Z13.31 A depression screening was completed via a standardiz ed screening tool. 5 minutes were spent discussing depression screening results and risk factors. Examinatio n of blood pressure 204454120 Z01.30 Diet education 47240533 Z71.3 Counseling 431220336 Z71 .82 Exercise counseling . Patient encouraged to exercise 30 minutes 5 days a week. At [facility] ed risk for falls 045542254 Z91.81 STEADI FAST screening score of ___7__. Advance care planning 71 7707569 Z71.89 Endocrine/ metabolic screening 394657996 Z13.641 [id number] Rafia Boyle APRN [address] [place] [address] 07/02/2024 13:32:24 07/02/2024 15:18:41 Body mass index 25-29 - overweight 558121748 Z68.27 Type 2 silvia betes mellitus 43747512 E11.9 [id number] Jessie Hamilton, MS, RDN, LDN [place] [employer] [address] [facility] [place] [address] 09/15/2024 11:26:33 09/15/2024 12:14:58 Prediabetes 899706461 R73.03 [id number] Rafia Boyle APRN [place] [id number] [facility] [place] [address] 09/17/2024 11:24:05 09/17/2024 12:26:47 Mixed hyperlipidemia 254099188 E78.2 Type 2 silvia betes mellitus 35531872 E11.9 Restless legs 14692038 G 25.81 Thoracogen ic scoliosis of thoracic spine 4904871860 92177 M41.34 Health Concerns Section Related Observation LastModified by Organization Detai ls LastModified Time None Recorded Concern Status LastModified by Organization Details LastModified Time None Recorded Advance Directives Directive N: Payers Insurance Date Sequence Insurance Name Policy Number Policy Maldonado Covered Member ID Maldonado Member ID Guarantor Name 10/03/2024 1 [employer] (MEDICARE REPLACEMENT/AD VANTAGE - PPO) Lucio A Oziel [id number] Lucio A Oziel 07/18/2016 1 UNSPECIFIED REMIT PAYOR Lucio A Oziel 09/15/2024 [place]ID[place] Lucio Oziel [id number] Lucio A Oziel 09/15/2024 2 [employer] [facility] (MEDICAID HMO) Lucio Oziel [id number] Lucio A Oziel Notes Date Note Type Note Provider Name and Address Organization Details Recorded Time 4 text/htm l Annual - MOBReported bypatient.History:Last annual exam: 12-08-2020; no change in interval history; Painful intercourse Current Contraception:Postmenopausal Preventive measures:Encourage self breast examination; Encourage regular exercise; Encourage no tobacco use; Encourage regular mammograms starting age 40; Followed with Q3 year pap smear and high risk HPV typing;Needs to schedule mammogram;Needs to schedule Dexa scan; All immunization are currentNotes:Last mammogram 12/2020, will send order todayhx of dexa screening 2011, will send order today Meghan Santos APRN [address], [place], [address], [place] [facility] 10/12/2023 12:18:27 4 text/htm l Medicare Annual Wellness VisitReported bypatient.Diet and Nutrition:healthy [...] min. Rafia Boyle APRN [address], [place], [address], [place] [facility] 03/09/2024 22:16:29 5 text/htm l Patient wants to discuss diet/nutrition right hip [...] 128 Rafia Boyle APRN [address], [place], [address], [place] [facility] 07/02/2024 22:44:04 5 text/htm l Initial Nutrition assessment for:T2DM [...] 203, LDL 128Energy Needs:4'3 , 108#, BMI 29.[address] caloriesNutrition Diagnosis:Stores Despatch Hand Goals:To avoid DM and be at a [...] Labs:A1C < 6Anthropometric:weight lossHandouts provided:Glycemix index food [id number] of face to face time with patient.Patient to drop of food list so I can make her a weeks worth of menu's and then f/u. Jessie Hamilton, MS, RDN, LDN [address], [place], [address], [place] [facility] 09/16/2024 16:28:38 5 text/htm ricardo Valdes is a 64 yof who presents to the clinic today for Fasting labs. She has seen the dietitian and is hopeful to begin eating better-she has made some changes but does feel this will improve with additional support. patient as been seeing pain management in [place]-she reports continued pain to her back-she would like a referral to a spine center. Rafia Boyle, INSOLVENCY PRACTITIONER [address], [place], [address], [place] [facility] 09/20/2024 22:54:25 OBGyn Episode No OBEpisode recorded.
--- OUTSIDE RECORDS SUMMARY | 2024-10-08 09:18 | XMS_ITS | Encounter Summary ---
Author Organization Healthcare Address [address] [place] [address] Care Team Providers Care Android Ios Developer Name Role Phone Cassidy Contreras MD Primary Care Provider [phone] Rafia Boyle APRN Primary Care Provider [phone] Encounter Details Date Type Department Care Team ([facility] st Contact Info) Description 02/02/2023 Orders Only External Location [address] [place] [address] Provider, External Social History Tobacco Use Types [...] documented as of this encounter Care Teams Android Ios Developer Relationship Specialty Start Date End Date Cassidy Contreras MD [address] [place] [id number] PCP - General 03/14/22 11/16/23 Rafia Boyle APRN [address] [place] [id number] PCP - General 11/17/23 documented as of this encounter
--- NOTE | 2024-10-08 09:39 | EXP.PAIN.SOA ---
[facility] Disclaimer: The information contained in this section may have been updated after the patient was seen, as this information can be updated by other users. Medical History HLD (hyperlipidemia) Dwarfism Scoliosis Surgical History History of right hip replacement Family History Other Unknown family medical history Social History Smoking Status: Unknown if ever smoked alcohol intake: never current occupational status: other Travel in the last 8 weeks?: None PM Subjective & Objective Subjective Subjective:: Patient is a pleasant 64-year-old female who presents today for follow-up. She rates her pain a 5 out of 10. She denies any new falls or injuries. Patient does state that the increased dosage on the pregabalin to 50 mg at bedtime and the meloxicam 15 mg daily do seem to be helping with the overall aches and pains there in her low back. Patient does state that she has had some dizziness but it does not coincide with when she takes this medication. Patient states she has had that in the past and it does come and go. Patient states she has seen ENT years ago. Patient is asking whether or not if there is possible bracing we can do to help pull her upper back into better alignment and add support for her low back. Patient denies any other changes. Her Scotty has been reviewed and is appropriate. Review of Systems: General: No recent weight changes, no fever, no sleep disturbances Respiratory: No cough, no shortness of air, no recurring pulmonary infections Cardiovascular/peripheral vascular: No chest pain, no palpitations, no edema, no shortness of breath Gastrointestinal: No new onset incontinence, normal bowel movements reported Genitourinary: No new onset incontinence Musculoskeletal: Low back pain Psychiatric: [Normal mood/affect] Neurological: [Denies weakness in extremities], [denies balance issues] Pain at rest (0-10 scale): 5 Objective Objective:: Physical Exam: General: Alert and oriented x3, no acute distress, pleasant and cooperative Lungs: Respirations even and unlabored, symmetrical chest expansion Eyes: PERRL Musculoskeletal: Flexion and extension of lumbar [spine] somewhat guarded secondary to pain, [antalgic gait noted] Neurological: Speech clear, no gross sensory deficit Has patient had previous pain injection?: No Conservative treatment options previously tried: Home exercise plan Length of treatment: Longer than 12 weeks Meds Home Medications and Allergies Home Medications ?Medication ?Instructions ?Recorded ?Confirmed ?Type atorvastatin 80 mg tablet 80 mg PO DAILY Cholesterol 06/26/24 09/10/24 History bupropion HCl 150 mg 24 hr tablet, 150 mg PO DAILY MOOD 06/26/24 09/10/24 History extended release diclofenac sodium 75 mg 75 mg PO DIRECTED Pain 06/26/24 09/10/24 History tablet,delayed release ropinirole 0.25 mg tablet 0.25 mg PO DAILY RESTLESS LEGS 06/26/24 09/10/24 History pregabalin 25 mg capsule 25 mg PO HS #14 caps 08/26/24 09/10/24 Rx meloxicam 15 mg tablet 15 mg PO DAILY #14 tabs 09/10/24 Rx pregabalin 50 mg capsule 50 mg PO HS #30 caps 09/10/24 Rx New Prescriptions to Start Prescriptions: Allergies Allergy/AdvReac Type Severity Reaction Status Date / Time gabapentin AdvReac Nausea Verified 06/26/24 11:47 hydrocodone AdvReac Headache Verified 06/26/24 11:47 Assessment and Plan *Assessment and plan (1) Lumbar radiculopathy: Status: Acute Category: Medical Code(s): M54.16 - Radiculopathy, lumbar region (2) Degenerative disc disease: Status: Acute Category: Medical (3) Lumbar spinal stenosis: Status: Acute Category: Medical Code(s): M48.061 - Spinal stenosis, lumbar region without neurogenic claudication Plan Due to her increased dizziness that will occasionally happen from time to time I have discussed with her that I would recommend her follow-up with primary care and ENT for help with these issues. We did discuss the possibility of trying Arsh maneuvers at home to see if this benefits her any. I will send in a 3-month supply of the pregabalin and meloxicam. Patient was counseled that we do have a bracing group that I can order a specialized brace and specifically the type where it does add support to her upper cervical while also releasing some tension on her lumbar spine. We will send this order in to support and stabilize her lumbar spine. Patient is scheduled to see a neurosurgeon on October 27 with [facility]. We will follow-up with this at a later date. Patient will return to clinic in 3 months for reevaluation of symptoms and plan of care. Patient has been instructed to contact the clinic with any concerns before the next appointment. Dr. Delgado has reviewed this note and agrees with this plan of care. This note was dictated using voice recognition software and make contain errors or omissions. All injections are used with Lidocaine, Bupivacaine and dexamethasone. Occasionally urine drug screen is needed to verify patient's compliance with our office pain contract. This is ordered based off specific treatments related to chronic pain with the potential to abuse certain medications.
[2024-10-08 10:17] VITALS: BP 109/69; PULSE 73; RESP 18; O2SAT 95; BMI 27.0
== END 2024-10-08 23:59 | disposition home or self-care (01) ==
PROVIDERS: PCP Nurse Practitioner Family; Visit Provider Nurse Practitioner Family
DX: M51.16 Intervertebral disc disorders with radiculopathy, lumbar region (principal); M48.061 Spinal stenosis, lumbar region without neurogenic claudication
CPT/HCPCS: 99212; G0463